=== PATIENT | female | born 1950 | race Caucasian/White ===

== ENCOUNTER → 2016-05-24 | Outpatient (CLI) | payer MEDICARE, OTHER ==
--- NOTE | 2016-05-25 09:43 | ECHOF ---
Referral Reason:R00.2 palpitations MEASUREMENTS -------- HEIGHT: 162.6 cm WEIGHT: 91.2 kg BP: 134/79 RVIDd: 2.9 cm (< 3.3) IVSd: 1.2 cm (0.6 - 1.1) LVIDd: 4.5 cm (3.9 - 5.3) LVPWd: 1.1 cm (0.6 - 1.1) IVSs: 1.5 cm LVIDs: 2.8 cm LVPWs: 1.7 cm LA Diam: 3.7 cm (2.7 - 3.8) LAESV Index (A-L): 21.51 ml/m Ao Diam: 3.3 cm (2.0 - 3.7) AV Cusp: 2.2 cm (1.5 - 2.6) MV EXCURSION: 13.189 mm (> 18.000) MV EF SLOPE: 30 mm/s (70 - 150) EPSS: 0.6 cm MV E Memo: 0.55 m/s MV DecT: 395 ms MV A Memo: 0.69 m/s MV E/A Ratio: 0.79 FINDINGS -------- Sinus rhythm. This was a technically good study. The left ventricular size is normal. There is borderline concentric left ventricular hypertrophy. Overall left ventricular systolic function is normal with, an EF between 60 - 65 %. The right ventricle is normal in size and function. Normal LA size by volume 22+/-6 ml/m2. The right atrium is normal in size. The aortic valve is trileaflet and appears structurally normal. Mild mitral annular calcification present. The tricuspid valve appears structurally normal. Trace/mild (physiologic) pulmonic regurgitation. The aortic root size is normal. IVC Not well visulized. There is no pericardial effusion. CONCLUSIONS -------- 1. Sinus rhythm. 2. Mild mitral annular calcification present. 3. The tricuspid valve appears structurally normal. 4. Trace/mild (physiologic) pulmonic regurgitation. 5. The aortic root size is normal. 6. IVC Not well visulized. 7. There is no pericardial effusion. 8. This was a technically good study. 9. The left ventricular size is normal. 10. There is borderline concentric left ventricular hypertrophy. 11. Overall left ventricular systolic function is normal with, an EF between 60 - 65 %. 12. The right ventricle is normal in size and function. 13. Normal LA size by volume 22+/-6 ml/m2. 14. The right atrium is normal in size. 15. The aortic valve is trileaflet and appears structurally normal. POWER REGULATOR: Hyun Bradford RDCS
== END | disposition home or self-care (01) ==
LOC: RADECHMAIN 10:49
PROVIDERS: ATTEND Family Medicine
DX: R00.2 Palpitations (principal)
CPT/HCPCS: 93225; 93226; 93306

== ENCOUNTER 2016-07-07 10:25 | Emergency (ER) | payer MEDICARE, OTHER ==
--- NOTE | 2016-07-07 10:31 | ED ---
Chest Pain HPI - General Stated Complaint: Chest Pain Time Seen by Provider: 07/07/16 10:25 Source: patient, EMS, RN notes reviewed Mode of arrival: EMS - History of Present Illness Initial Comments: This is a 65-year-old female who presents by EMS after going to a clinic this morning with complaints of chest pain and some shortness of breath she states that this started 2 days ago after vacuuming and lifting furniture. She states pain was severe 9/10 severity mostly sharp located to the left chest wall left scapula left trapezius and down the left arm. EKG done at the clinic apparently was totally normal. She was given nitroglycerin which did help a little bit pain gets worse with movements and deep breathing she denies any fevers chills nausea vomiting sweats. She does have a history of an irregular heartbeat and hypertension no prior lung history of anything. She is does states she had a cardiac catheterization done 30 years ago which did not show anything significant. MD Complaint: chest pain, other - Related Data Home Medications Medication Instructions Recorded Confirmed Furosemide [Lasix] 20 mg PO QAM 07/14/14 07/07/16 Gabapentin [Neurontin] 400 mg PO MOWEFR 07/14/14 07/07/16 Simvastatin [Zocor] 40 mg PO HS 07/14/14 07/07/16 FLUoxetine HCL [PROzac] 20 mg PO QAM 09/20/15 07/07/16 Cholecalciferol [Vitamin D3] 1,000 units PO QAM 10/20/15 07/07/16 Cranberry Extract [Cranberry] 500 mg PO QAM 10/20/15 07/07/16 Ergocalciferol [Vitamin D2 50,000 unit PO CORDERO 10/20/15 07/07/16 (DRISDOL)] Hydrocortisone Lotion [Hytone 2.5% 1 applicate TOPICAL BID PRN 10/20/15 07/07/16 Lotion] metroNIDAZOLE [Metrolotion] 1 applic TOPICAL BID 10/20/15 07/07/16 Carboxymethylcellulose Sodium 1 drop BOTH EYES BID 07/07/16 07/07/16 [Refresh Tears] Gabapentin [Neurontin] 400 mg PO HS 07/07/16 07/07/16 Ibuprofen [Motrin] 200 mg PO Q6HR PRN 04/22/17 04/22/17 Triamcinolone 0.1% Lotion [Kenalog 1 applic TOPICAL BID PRN 07/07/16 07/07/16 0.1% Lotion] Previous Rx's Medication Instructions Recorded Ketorolac [Toradol] 10 mg PO Q6HR #20 tab 07/07/16 Orphenadrine [Norflex] 100 mg PO Q12H #7 tablet.er 07/07/16 Allergies Allergy/AdvReac Type Severity Reaction Status Date / Time gold Au 198 Allergy Severe Swelling Verified 07/07/16 13:03 nickel Allergy Severe Swelling Verified 07/07/16 13:03 adhesive Allergy Itching/Sor Verified 07/07/16 13:00 es caffeine Allergy Anaphylaxis Verified 07/07/16 13:00 chlorhexidine gluconate Allergy Anaphylaxis Verified 07/07/16 13:00 [From Hibiclens] cinnamon Allergy Swelling Verified 07/07/16 13:00 of Tongue formaldehyde Allergy Unknown- Verified 07/07/16 13:00 positive in testing that was done Latex, Natural Rubber Allergy Anaphylaxis Verified 07/07/16 13:00 povidone-iodine Allergy Anaphylaxis Verified 07/07/16 13:00 [From Betadine] soap [From Betadine] Allergy Anaphylaxis Verified 07/07/16 13:00 sulfabenzamide Allergy Dyspnea Verified 07/07/16 13:00 tree nut [Pecan] Allergy Unknown Verified 07/07/16 13:00 wheat Allergy Rash/Hives Verified 07/07/16 13:00 warfarin sodium AdvReac Severe Nausea/Weak Verified 07/07/16 13:00 [From Coumadin] ness codeine AdvReac Hallucinati Verified 07/07/16 13:00 ons diazepam [From Valium] AdvReac "Collapsed" Verified 07/07/16 13:00 losartan potassium AdvReac Cough Verified 07/07/16 13:00 [From Cozaar] oxycodone AdvReac "Collapsed" Verified 07/07/16 13:00 metal Allergy Severe Nickel & Uncoded 07/07/16 13:00 Gold Allergy cinnamic aldehyde Allergy Sores/Rash Uncoded 07/07/16 13:00 in Mouth disperse red 17 Allergy Unknown Uncoded 12/20/15 12:07 fruit many types Allergy Itching Uncoded 07/07/16 13:00 [id number] MIX III Allergy Dyspnea Uncoded 12/20/15 12:07 preservative in eye drops Allergy Itching & Uncoded 12/20/15 12:07 Burning walnut Allergy Itching & Uncoded 07/07/16 13:00 Tongue Swells Review of Systems ROS Statement: Those systems with pertinent positive or pertinent negative responses have been documented in the HPI. ROS Other: All systems not noted in ROS Statement are negative. EKG Findings - EKG Results: EKG: interpreted by ERMD, sinus rhythm (Sinus rhythm rate of 62 OH interval 178 QRS duration 86 daily since QTC of 448/454 evidence of old inferior changes possible old anterior changes no acute ST-T wave elevations or depressions.) Past Medical History Past Medical History: Fibromyalgia, Hyperlipidemia, Hypertension, Osteoarthritis (OA), Sleep Apnea/CPAP/BIPAP Additional Past Medical History / Comment(s): past hx. 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, DDD, loss of feeling in arms and hands, had seizure several years ago related to severe caffeine allergy History of Any Multi-Drug Resistant Organisms: ESBL Date of last positivie culture/infection: 05/14/15 MDRO Source:: Urine-ESBL Past Surgical History: Back Surgery, Breast Surgery, Cholecystectomy, Hysterectomy, Orthopedic Surgery, Tonsillectomy, Tubal Ligation Additional Past Surgical History / Comment(s): kiara foot surgery, left breast biopsy, kiara knee replacement, cystocele/rectocele repair, PAIN CLINIC PROCEDURES , laminectomy 2012, lumbar fusion Feb 2015, May 12, 2015: surgery on back. Past Anesthesia/Blood Transfusion Reactions: Previous Problems w/ Anesthesia, Motion Sickness, Postoperative Nausea & Vomiting (PONV) Additional Past Anesthesia/Blood Transfusion Reaction / Comment(s): in recovery room-aspiration into lungs, DIFF WAKING Past Psychological History: Depression Smoking Status: Never smoker Past Alcohol Use History: None Reported Past Drug Use History: None Reported - Past Family History Father Family Medical History: Asthma, COPD, Coronary Artery Disease (CAD), Dementia Mother Family Medical History: Coronary Artery Disease (CAD), Dementia, Diabetes Mellitus, Hypertension Brother(s) Family Medical History: CVA/TIA, Diabetes Mellitus, Vascular Disorder Sister(s) Family Medical History: Liver Disease Daughter(s) Family Medical History: Hypertension Son(s) Family Medical History: Asthma General Exam - General Exam Comments Initial Comments: This is a well-developed well-nourished awake alert oriented 3 female General appearance: alert, anxious Head exam: Present: atraumatic, normocephalic, normal inspection Eye exam: Present: normal appearance, PERRL, EOMI. Absent: scleral icterus, conjunctival injection, periorbital swelling ENT exam: Present: normal exam, mucous membranes moist Neck exam: Present: normal inspection. Absent: tenderness, meningismus, lymphadenopathy Respiratory exam: Present: normal lung sounds bilaterally, chest wall tenderness (Reproducible tenderness palpation over left costosternal junction also over the left trapezius muscle left scapular region.). Absent: respiratory distress, wheezes, rales, rhonchi, stridor Cardiovascular Exam: Present: regular rate, normal rhythm, normal heart sounds. Absent: systolic murmur, diastolic murmur, rubs, gallop, clicks GI/Abdominal exam: Present: soft, normal bowel sounds. Absent: distended, tenderness, guarding, rebound, rigid Extremities exam: Present: normal inspection, full ROM, normal capillary refill. Absent: tenderness, pedal edema, joint swelling, calf tenderness Back exam: Present: normal inspection Neurological exam: Present: alert, oriented X3, CN II-XII intact Psychiatric exam: Present: normal affect, normal mood Skin exam: Present: warm, dry, intact, normal color. Absent: rash Course Vital Signs 07/07/16 07/07/16 07/07/16 10:34 11:35 12:15 Temperature 97.4 F L Pulse Rate 66 57 L 60 Respiratory 16 22 16 Rate Blood Pressure 153/80 160/95 173/90 O2 Sat by Pulse 98 98 95 Oximetry 07/07/16 07/07/16 12:45 13:15 Temperature Pulse Rate 62 62 Respiratory 18 16 Rate Blood Pressure 163/87 165/75 O2 Sat by Pulse 95 97 Oximetry Chest Pain MDM - MDM I did review all of the imaging and reports no acute findings. No evidence of PE. Patient is feeling improved the presentation consistent with costochondritis and musculoskeletal pain is not reproducible. She'll be discharged with follow-up with her doctor return when necessary Disposition Clinical Impression: Costalchondritis, Chest wall syndrome Disposition: HOME SELF-CARE Condition: Good Instructions: Costochondritis (ED) Prescriptions: Ketorolac [Toradol] 10 mg PO Q6HR #20 tab Orphenadrine [Norflex] 100 mg PO Q12H #7 tablet.er
[2016-07-07 11:10] LABS: Basophils # (A) 0.1 k/uL (0-0.2); Basophils % (A) 1 %; CH 27.2; CHCM 33.1; Eosinophils # (A) 0.1 k/uL (0-0.7); Eosinophils % (A) 1 %; HCT 45.3 % (34.0-46.0); HDW 2.64; HGB 14.8 gm/dL (11.4-16.0); Luc # (Auto) 0.17; Luc % (Auto) 3; Lymphocytes % (A) 31 %; MCH 26.9 pg (25.0-35.0); MCHC 32.7 g/dL (31.0-37.0); MCV 82.3 fL (80.0-100.0); Mean Platelet Volume 6.9; Monocytes # (A) 0.3 k/uL (0-1.0); Monocytes % (A) 4 %; Neutrophils % (A) 60 %; RBC 5.51 m/uL (3.80-5.40); RDW 13.9 % (11.5-15.5); WBC 6.6 k/uL (3.8-10.6); WBC (Perox) 6.36
[2016-07-07 11:22] LABS: ALT 25 U/L (9-52); AST 18 U/L (14-36); Alkaline Phosphatase 88 U/L (38-126); Amylase 49 U/L (30-110); Anion Gap 10 mmol/L; Blood Urea Nitrogen 9 mg/dL (7-17); Calcium 9.5 mg/dL (8.4-10.2); Carbon Dioxide 26 mmol/L (22-30); Chloride 107 mmol/L (98-107); Glucose 98 mg/dL (74-99); Non-African American GFR(MDRD) >60 (>60 ml/min/1.73 sqM); Potassium 3.4 mmol/L (3.5-5.1); Sodium 143 mmol/L (137-145); Total Bilirubin 0.8 mg/dL (0.2-1.3); Total Protein 6.7 g/dL (6.3-8.2)
[2016-07-07] MEDS: KETOROLAC 30 MG/ML 1 ML VIAL IVP STA ×2 (11:26→14:18)
[2016-07-07 11:57] LABS: Creatine Kinase 44 U/L (30-135)
[2016-07-07 12:10] LABS: Creatine Kinase MB 0.4 ng/mL (0.0-2.4); Troponin I <0.012 ng/mL (0.000-0.034)
[2016-07-07 12:13] LABS: INR 1.1 (<1.1); Partial Thromboplastin Time 22.8 sec (22.0-30.0); Prothrombin Time 11.3 sec (9.0-12.0)
[2016-07-07] MEDS ORDERED: RX INFO: IV CONTRAST WAS GIVEN 1 EACH MISC MISCELLANE PRN (13:14)
[2016-07-07 13:35] VITALS: RESP 16
--- NOTE | 2016-07-07 14:24 | XR ---
EXAMINATION TYPE: XR chest 2V DATE OF EXAM: 07/07/2016 1:46 PM COMPARISON: 09/20/2015 INDICATION: Chest pain TECHNIQUE: Single frontal view of the chest is obtained. FINDINGS: The heart size is normal. The pulmonary vasculature is normal. The lungs are clear. There is elevation of the right diaphragm. No significant change from comparison IMPRESSION: 1. No acute pulmonary process.
--- NOTE | 2016-07-07 14:27 | CT ---
CT CHEST FOR PULMONARY EMBOLISM. EXAMINATION TYPE: CT angio chest DATE OF EXAM: 07/07/2016 1:41 PM INDICATION: Patient having left chest, left arm, left shoulder pain CT DLP: 449.4 mGycm, Automated exposure control for dose reduction was used. CONTRAST: Patient injected with 100, wasted 37 ml mL of Omnipaque 350. COMPARISON: NONE TECHNIQUE: CT of the chest is performed on a spiral scan at 2 mm thick sections. Study is performed with intravenous contrast timed for evaluation for pulmonary embolism. This will limit additional po rtions of the evaluation. 3-D MIP images reconstructed by the technologist are reviewed on the compu ter in the coronal and sagittal planes. FINDINGS: No persistent filling defects are evident to suggest an acute pulmonary embolism. No mediastinal or hilar adenopathy enlarged by CT criteria is evident. The ascending aorta diameter at the level of the main pulmonary artery is 4.0 cm. The main pulmonary artery diameter at the bifur cation is 3.2 cm. Lung windows are clear. Limited CT section through the upper abdomen are unremarkable. IMPRESSIONS: 1. No acute pulmonary embolism.
[2016-07-07] MEDS ORDERED: diphenhydrAMINE 25 MG CAP PO STA (15:13)
[2016-07-07 15:47] VITALS: BP 153/86; PULSE 68; TEMP 97.9
== END 2016-07-07 15:45 | disposition home or self-care (01) ==
LOC: EC 10:25
DX: M94.0 Chondrocostal junction syndrome [Tietze] (principal); R07.1 Chest pain on breathing; M19.90 Unspecified osteoarthritis, unspecified site; I10 Essential (primary) hypertension; E78.5 Hyperlipidemia, unspecified; Z88.5 Allergy status to narcotic agent; Z91.048 Other nonmedicinal substance allergy status; Z91.040 Latex allergy status; Z88.8 Allergy status to other drugs, medicaments and biological substances; Z91.09 Other allergy status, other than to drugs and biological substances; Z91.018 Allergy to other foods; Z79.899 Other long term (current) drug therapy
CPT/HCPCS: 99285; 96374; 96376; 36415; 93005; 85379; 80053; 82150; 82550; 82553; 83690; 83735; 84484; 85025; 85610; 85730; 71020; 71275; Q9967; J1885

== ENCOUNTER → 2016-09-05 | Outpatient (CLI) | payer MEDICARE, OTHER ==
--- NOTE | 2016-09-07 13:18 | MR ---
MR brain without contrast HISTORY: Altered mental status, previous abnormal MRI, R 41 Multiplanar multisequence imaging through the brain Correlation to prior brain MRI 03/30/2009 There are normal vascular flow voids. There is no hemorrhage or hydrocephalus. Orbits show a symmetri c appearance. There is no restricted diffusion to suggest subacute ischemia. Cortical atrophy is agai n noted. Periventricular white matter hyperintensity is present on inversion recovery and T2-weighted sequences as on prior exam. Cerebellopontine angles, corpus callosum, pituitary, cervical medullary junction are stable. IMPRESSION: White matter demyelination may be due to chronic small vessel ischemia, vasculitis, hyper tension, migraine headaches, findings are similar to prior exam although there are differences in berta hnique.
== END | disposition home or self-care (01) ==
LOC: RADMRIMAIN 11:10
PROVIDERS: ATTEND Psychiatry & Neurology Neurology
DX: G37.8 Other specified demyelinating diseases of central nervous system (principal)
CPT/HCPCS: 70551

== ENCOUNTER → 2016-10-31 | Outpatient (CLI) | payer MEDICARE, OTHER ==
--- NOTE | 2016-11-13 05:53 | ENG ---
DATE OF EN10/31/2016 ELECTRONYSTAGMOGRAPHIC EXAMINATION REPORT INDICATION FOR EXAMINATION: This patient is a 66-year-old female being evaluated for symptoms of dizziness and vertigo. Patient has had multiple symptoms of gait unsteadiness and gait imbalance. She has been symptomatic for over 2 years. Patient also complains of tinnitus involving both ears. CALIBRATION: Within normal limits. SPONTANEOUS NYSTAGMUS: No spontaneous nystagmus was seen. GAZE NYSTAGMUS: No gaze evoked nystagmus was seen. SINUSOIDAL TRACKING TEST: Smooth pursuit eye movements at both 10 and 20 degrees per minute were slightly impaired. Saccadic attempts at eye tracking were observed. OPTOKINETIC TEST: The optokinetics were asymmetrical with right beating nystagmus being better developed as compared to left beating nystagmus at lower and higher target beats bilaterally. JUANY-HALLPIKE TEST: The left left Juany-Hallpike maneuver produced severe dizziness. Occasional right beating nystagmus was observed. The right Talala-Hallpike maneuver did not produce any dizziness. An occasional left beating nystagmus was observed. POSITIONAL NYSTAGMUS: No positional nystagmus was seen in all 6 positions tested. CALORIC TEST: Bithermal alternating caloric irrigation revealed unilateral weakness on the right and directional preponderance to the left without failure of fixation suppression. IMPRESSION: This electronystagmogram does not contain any spontaneous nystagmus. There was no gaze evoked nystagmus seen. Smooth pursuit eye movements were slightly impaired. Saccadic attempts at eye tracking were observed. The optokinetics were asymmetrical with right beating nystagmus being better developed as compared to left beating nystagmus at lower and higher target speeds bilaterally. The left Juany-Hallpike maneuver produced severe dizziness with right beating nystagmus. The right Talala-Hallpike maneuver produced no dizziness with occasional left beating nystagmus. No positional nystagmus was seen in all 6 positions tested. Caloric testing revealed unilateral weakness on the right and directional preponderance to the left without failure of fixation suppression. The above findings favor a partially compensated right peripheral vestibular disturbance. Clinical correlation is recommended. MTDD
== END | disposition home or self-care (01) ==
LOC: NEUROMAIN 06:45
PROVIDERS: ATTEND Psychiatry & Neurology Neurology
DX: H81.23 Vestibular neuronitis, bilateral (principal)
CPT/HCPCS: 92537; 92540

== ENCOUNTER → 2017-04-17 | Outpatient (CLI) | payer MEDICARE, OTHER ==
--- NOTE | 2017-04-19 07:59 | MM ---
Reason for exam: screening (asymptomatic). Last mammogram was performed 1 year and 7 months ago. History: Patient is postmenopausal and history of other cancer. Family history of breast cancer in aunt at age 50. Cyst aspiration. Physical Findings: A clinical breast exam by your physician is recommended on an annual basis and results should be correlated with mammographic findings. MG Screening Mammo w CAD Bilateral CC and MLO view(s) were taken. Prior study comparison: September 08, 2015, bilateral MG screening mammo w CAD. April 01, 2014, bilateral MG screening mammo w CAD. There are scattered fibroglandular densities. No significant changes when compared with prior studies. ASSESSMENT: Negative, BI-RAD 1 RECOMMENDATION: Routine screening mammogram of both breasts in 1 year.
== END | disposition home or self-care (01) ==
LOC: RADMAMWWP 09:54
PROVIDERS: ATTEND Family Medicine
DX: Z12.31 Encounter for screening mammogram for malignant neoplasm of breast (principal)
CPT/HCPCS: 77067

== ENCOUNTER → 2017-08-20 | Outpatient (CLI) | payer MEDICARE, OTHER ==
--- NOTE | 2017-08-21 11:36 | BD ---
EXAMINATION TYPE: Axial Bone Density DATE OF EXAM: 08/20/2017 COMPARISON: 03.31.2013 CLINICAL HISTORY: 67 YR OLD FEMALE....ICD-10 CODE: M89.9 DISORDER OF BONE Height: 63 Weight: 188 FRAX RISK QUESTIONS: Family History (Parent hip fracture): YES Glucocorticoids (More than 3mos): YES (Ex: prednisone, prednisolone, methylprednisolone, dexamethasone, and hydrocortisone). History of Fracture in Adulthood: YES RISK FACTORS HISTORY OF: BOTH FEET, TOES FXs, > 50 YRS OLD Surgery to Spine YES, RODS AND SCREWS, CADAVER BONE INSERTS When: LONG AGO Family History of Osteoporosis: YES, MOTHER WITH BROKEN HIP Active: YES Diet low in dairy products/other sources of calcium: NO Postmenopausal woman: YES TOTAL HYST AT 45 YRS OLD Take estrogen and/or progesterone medications: IN PAST FOR 2 YRS MEDICATIONS: Prednisone or other steroids: ON AND OFF IN PAST Additional Medications: BP MEDS, ANTI DEPRESSANTS AND ANTISEIZURE MEDS, CALCIUM AND VIT D, NSAIDS, PA IN MEDS , Additional History: DGD, ARTHRITIS, DEMENTIA, MANY ALLERGIES EXAM MEASUREMENTS: Bone mineral densitometry was performed using the [employer] System. SPINE NOT SCANNED Bone mineral density about the R hip (g/cm2): 0.817 Bone mineral density about the L hip (g/cm2): 0.918 T Score values are as follows: -----R Neck: -1.3 -----L Neck: -1.0 -----R Total: -1.5 -----L Total: -0.7 Bone mineral density has: Decreased osteopenia proximal right femur and increased fracture risk.0.1% SINCE 03.31.2013 FRAX%S: THERE IS A 14.8% CHANCE OF A MAJOR OSTEOPOROTIC FX AND A 1.1% FOR HIP FX.....PROBABILITY OF FX IN 10 YRS TIME IMPRESSION: NOTE: T-SCORE=SD OF THE YOUNG ADULT MEAN.
== END | disposition home or self-care (01) ==
LOC: RADBDWWP 15:32
PROVIDERS: ATTEND Family Medicine
DX: M89.9 Disorder of bone, unspecified (principal)
CPT/HCPCS: 77080

== ENCOUNTER 2018-03-25 09:15 | Emergency (ER) | payer MEDICARE, OTHER ==
[2018-03-25 09:20] VITALS: TEMP 97.6
--- NOTE | 2018-03-25 09:30 | ED ---
Abdominal Pain HPI - General Chief Complaint: Abdominal Pain Stated Complaint: VOMITING LEFT FLANK PAIN Time Seen by Provider: 03/25/18 09:28 Source: patient, RN notes reviewed, old records reviewed Mode of arrival: ambulatory Limitations: no limitations - History of Present Illness Initial Comments: This is a 67-year-old female the ER for evaluation. Patient does say for evaluation of flank pain severe left-sided flank pain rating to left groin. No fevers, patient is nauseous with nausea and vomiting. No recent travel history no recent sick contacts. Patient denies any prior history of similar complaint. Patient states his symptoms are severe and wrapping around her back to front MD Complaint: flank pain (left) -: days(s) Location: LLQ, L flank Radiation: LLQ Migration to: suprapubic Severity: severe Severity scale (1-10): 8 Quality: aching, sharp Consistency: constant Improves With: nothing Worsens With: nothing Associated Symptoms: nausea, vomiting - Related Data Home Medications Medication Instructions Recorded Confirmed Furosemide [Lasix] 20 mg PO QAM 07/14/14 03/25/18 Simvastatin [Zocor] 40 mg PO HS 07/14/14 03/25/18 FLUoxetine HCL [PROzac] 20 mg PO QAM 09/20/15 03/25/18 Cholecalciferol [Vitamin D3] 5,000 units PO QAM 10/20/15 03/25/18 Cranberry Fruit Extract [Cranberry] 500 mg PO BID 10/20/15 03/25/18 metroNIDAZOLE [Metrolotion] 1 applic TOPICAL BID 10/20/15 03/25/18 Carboxymethylcellulose Sodium 1 drop BOTH EYES BID 07/07/16 03/25/18 [Refresh Tears] Triamcinolone 0.1% Lotion [Kenalog 1 applic TOPICAL BID PRN 07/07/16 03/25/18 0.1% Lotion] Ascorbic Acid [Vitamin C] 500 mg PO BID 03/25/18 03/25/18 Calcium Carbonate [Calcium] 1,200 mg PO DAILY 03/25/18 03/25/18 Donepezil HCl [Aricept] 20 mg PO HS 03/25/18 03/25/18 Aysha Root 1,300 mg PO BID 03/25/18 03/25/18 diphenhydrAMINE [Benadryl] 25 mg PO QID PRN 03/25/18 03/25/18 Allergies Allergy/AdvReac Type Severity Reaction Status Date / Time gold Au 198 Allergy Severe Swelling Verified 03/25/18 10:13 nickel Allergy Severe Swelling Verified 03/25/18 10:13 acetaminophen [From Percocet] Allergy Anaphylaxis Verified 03/25/18 10:13 adhesive Allergy Itching/Sor Verified 03/25/18 10:13 es apple Allergy Unknown Verified 03/25/18 10:13 avocado Allergy Unknown Verified 03/25/18 10:13 banana Allergy Unknown Verified 03/25/18 10:13 beet Allergy Unknown Verified 03/25/18 10:13 broccoli Allergy Unknown Verified 03/25/18 10:13 caffeine Allergy Anaphylaxis Verified 03/25/18 10:13 Cauliflower Allergy Unknown Verified 03/25/18 10:13 poon Allergy Unknown Verified 03/25/18 10:13 chlorhexidine Allergy Anaphylaxis Verified 03/25/18 10:13 [From Hibiclens] chlorhexidine gluconate Allergy Anaphylaxis Verified 03/25/18 10:13 [From Hibiclens] cinnamon Allergy Swelling Verified 03/25/18 10:13 of Tongue citric acid Allergy Anaphylaxis Verified 03/25/18 10:13 formaldehyde Allergy Unknown- Verified 03/25/18 10:13 positive in testing that was done gabapentin Allergy Unknown Verified 03/25/18 10:13 hazelnut Allergy Unknown Verified 03/25/18 10:13 kiwi Allergy Unknown Verified 03/25/18 10:13 Latex, Natural Rubber Allergy Anaphylaxis Verified 03/25/18 10:13 lemon Allergy Unknown Verified 03/25/18 10:13 elem Allergy Unknown Verified 03/25/18 10:13 losartan Allergy Unknown Verified 03/25/18 10:13 orange juice [[place]] Allergy Unknown Verified 03/25/18 10:13 papaya Allergy Unknown Verified 03/25/18 10:13 passion fruit Allergy Unknown Verified 03/25/18 10:13 peach Allergy Unknown Verified 03/25/18 10:13 pear Allergy Unknown Verified 03/25/18 10:13 Pepper Allergy Unknown Verified 03/25/18 10:13 plum Allergy Unknown Verified 03/25/18 10:13 potato Allergy Unknown Verified 03/25/18 10:13 povidone-iodine Allergy Anaphylaxis Verified 03/25/18 10:13 [From Betadine] raspberry Allergy Unknown Verified 03/25/18 10:13 red dye Allergy Anaphylaxis Verified 03/25/18 10:13 soap [From Betadine] Allergy Anaphylaxis Verified 03/25/18 10:13 Squash Allergy Unknown Verified 03/25/18 10:13 strawberry Allergy Unknown Verified 03/25/18 10:13 sulfabenzamide Allergy Dyspnea Verified 03/25/18 10:13 tomato Allergy Unknown Verified 03/25/18 10:13 tree nut [Pecan] Allergy Unknown Verified 03/25/18 10:13 walnut Allergy Unknown Verified 03/25/18 10:13 warfarin Allergy Unknown Verified 03/25/18 10:13 wheat Allergy Rash/Hives Verified 03/25/18 10:13 warfarin sodium AdvReac Severe Nausea/Weak Verified 03/25/18 10:13 [From Coumadin] ness codeine AdvReac Hallucinati Verified 03/25/18 10:13 ons diazepam [From Valium] AdvReac "Collapsed" Verified 03/25/18 10:13 losartan potassium AdvReac Cough Verified 03/25/18 10:13 [From Cozaar] oxycodone AdvReac "Collapsed" Verified 03/25/18 10:13 metal Allergy Severe Nickel & Uncoded 03/25/18 09:20 Gold Allergy CHESTNUTS Allergy Unknown Uncoded 03/25/18 10:13 CHIPS (SEASONED) Allergy Unknown Uncoded 03/25/18 10:13 cinnamic aldehyde Allergy Sores/Rash Uncoded 03/25/18 09:20 in Mouth disperse red 17 Allergy Unknown Uncoded 03/25/18 09:20 FLUORIDE AND CHLORIDE WATER Allergy Unknown Uncoded 03/25/18 10:13 fruit many types Allergy Itching Uncoded 03/25/18 09:20 [id number] MIX III Allergy Dyspnea Uncoded 03/25/18 09:20 NECTARINE Allergy Unknown Uncoded 03/25/18 10:13 PICKLED FOOD Allergy Unknown Uncoded 03/25/18 10:13 POTASSIUM CITRATE Allergy Unknown Uncoded 03/25/18 10:13 preservative in eye drops Allergy Itching & Uncoded 03/25/18 09:20 Burning STAR FRUIT Allergy Unknown Uncoded 03/25/18 10:13 TANGERINE Allergy Unknown Uncoded 03/25/18 10:13 VINEGAR Allergy Unknown Uncoded 03/25/18 10:13 walnut Allergy Itching & Uncoded 03/25/18 09:20 Tongue Swells Review of Systems ROS Statement: Those systems with pertinent positive or pertinent negative responses have been documented in the HPI. ROS Other: All systems not noted in ROS Statement are negative. Past Medical History Past Medical History: Fibromyalgia, Hyperlipidemia, Hypertension, Osteoarthritis (OA), Sleep Apnea/CPAP/BIPAP Additional Past Medical History / Comment(s): past hx. 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, DDD, loss of feeling in arms and hands, had seizure several years ago related to severe caffeine allergy History of Any Multi-Drug Resistant Organisms: ESBL Date of last positivie culture/infection: 05/14/15 MDRO Source:: Urine-ESBL Past Surgical History: Back Surgery, Breast Surgery, Cholecystectomy, Hysterectomy, Orthopedic Surgery, Tonsillectomy, Tubal Ligation Additional Past Surgical History / Comment(s): kiara foot surgery, left breast biopsy, kiara knee replacement, cystocele/rectocele repair, PAIN CLINIC PROCEDURES , laminectomy 2012, lumbar fusion Feb 2015, May 12, 2015: surgery on back. Past Anesthesia/Blood Transfusion Reactions: Previous Problems w/ Anesthesia, Motion Sickness, Postoperative Nausea & Vomiting (PONV) Additional Past Anesthesia/Blood Transfusion Reaction / Comment(s): in recovery room-aspiration into lungs, DIFF WAKING Past Psychological History: Depression Smoking Status: Never smoker Past Alcohol Use History: None Reported Past Drug Use History: None Reported - Past Family History Father Family Medical History: Asthma, COPD, Coronary Artery Disease (CAD), Dementia Mother Family Medical History: Coronary Artery Disease (CAD), Dementia, Diabetes Mellitus, Hypertension Brother(s) Family Medical History: CVA/TIA, Diabetes Mellitus, Vascular Disorder Sister(s) Family Medical History: Liver Disease Daughter(s) Family Medical History: Hypertension Son(s) Family Medical History: Asthma General Exam Limitations: no limitations General appearance: alert, in no apparent distress, anxious (Patient is in distress, pain) Head exam: Present: atraumatic, normocephalic, normal inspection Eye exam: Present: normal appearance, PERRL, EOMI. Absent: scleral icterus, conjunctival injection, periorbital swelling ENT exam: Present: normal exam, mucous membranes moist Neck exam: Present: normal inspection. Absent: tenderness, meningismus, lymphadenopathy Respiratory exam: Present: normal lung sounds bilaterally. Absent: respiratory distress, wheezes, rales, rhonchi, stridor Cardiovascular Exam: Present: regular rate, normal rhythm, normal heart sounds. Absent: systolic murmur, diastolic murmur, rubs, gallop, clicks GI/Abdominal exam: Present: soft, normal bowel sounds. Absent: distended, tenderness, guarding, rebound, rigid Extremities exam: Present: normal inspection, full ROM, normal capillary refill. Absent: tenderness, pedal edema, joint swelling, calf tenderness Back exam: Present: normal inspection Neurological exam: Present: alert, oriented X3, CN II-XII intact Psychiatric exam: Present: normal affect, normal mood Skin exam: Present: warm, dry, intact, normal color. Absent: rash Course Vital Signs 03/25/18 03/25/18 09:18 10:58 Temperature 97.6 F Pulse Rate 89 85 Respiratory 20 18 Rate Blood Pressure 172/110 123/62 O2 Sat by Pulse 100 100 Oximetry - Reevaluation(s) Reevaluation #1: 03/25/18 12:18 Medical record reviewed Reevaluation #2: 03/25/18 12:18 Patient's pain is controlled Medical Decision Making - Medical Decision Making 67 female the ER for evaluation. Patient resents today for evaluation of severe abdominal pain severe left flank pain. Patient has positive kidney stone. Patient can be discharged home - Lab Data Result diagrams: 03/25/18 09:40 03/25/18 09:40 Lab Results 03/25/18 03/25/18 03/25/18 Range/Units 09:40 09:40 09:40 WBC 8.9 (3.8-10.6) k/uL RBC 5.76 H (3.80-5.40) m/uL Hgb 15.8 (11.4-16.0) gm/dL Hct 47.2 H (34.0-46.0) % MCV 81.9 (80.0-100.0) fL MCH 27.4 (25.0-35.0) pg MCHC 33.4 (31.0-37.0) g/dL RDW 13.4 (11.5-15.5) % Plt Count 290 (150-450) k/uL Neutrophils % 80 % Lymphocytes % 13 % Monocytes % 4 % Eosinophils % 1 % Basophils % 1 % Neutrophils # 7.2 (1.3-7.7) k/uL Lymphocytes # 1.2 (1.0-4.8) k/uL Monocytes # 0.4 (0-1.0) k/uL Eosinophils # 0.1 (0-0.7) k/uL Basophils # 0.1 (0-0.2) k/uL PT (9.0-12.0) sec INR (<1.2) APTT (22.0-30.0) sec Sodium 142 (137-145) mmol/L Potassium 3.8 (3.5-5.1) mmol/L Chloride 105 (98-107) mmol/L Carbon Dioxide 26 (22-30) mmol/L Anion Gap 11 mmol/L BUN 15 (7-17) mg/dL Creatinine 1.02 (0.52-1.04) mg/dL Est GFR (CKD-EPI)AfAm 66 (>60 ml/min/1.73 sqM) Est GFR (CKD-EPI)NonAf 57 (>60 ml/min/1.73 sqM) Glucose 133 H (74-99) mg/dL Plasma Lactic Acid Eric (0.7-2.0) mmol/L Calcium 10.2 (8.4-10.2) mg/dL Total Bilirubin 1.2 (0.2-1.3) mg/dL AST 24 (14-36) U/L ALT 19 (9-52) U/L Alkaline Phosphatase 95 (38-126) U/L Total Creatine Kinase 76 (30-135) U/L CK-MB (CK-2) 0.9 (0.0-2.4) ng/mL CK-MB (CK-2) Rel Index 1.2 Troponin I <0.012 (0.000-0.034) ng/mL Total Protein 7.1 (6.3-8.2) g/dL Albumin 4.6 (3.5-5.0) g/dL Amylase 52 (30-110) U/L Lipase 101 (23-300) U/L Urine Color Urine Appearance (Clear) Urine pH (5.0-8.0) Ur Specific [place] (1.001-1.035) Urine Protein (Negative) Urine Glucose (UA) (Negative) Urine Ketones (Negative) Urine Blood (Negative) Urine Nitrite (Negative) Urine Bilirubin (Negative) Urine Urobilinogen (<2.0) mg/dL Ur Leukocyte Esterase (Negative) Urine RBC (0-5) /hpf Urine WBC (0-5) /hpf Ur Squamous Epith Cells (0-4) /hpf Calcium Oxalate Crystal (None) /hpf Amorphous Sediment (None) /hpf Urine Mucus (None) /hpf 03/25/18 03/25/18 03/25/18 Range/Units 09:40 09:40 09:40 WBC (3.8-10.6) k/uL RBC (3.80-5.40) m/uL Hgb (11.4-16.0) gm/dL Hct (34.0-46.0) % MCV (80.0-100.0) fL MCH (25.0-35.0) pg MCHC (31.0-37.0) g/dL RDW (11.5-15.5) % Plt Count (150-450) k/uL Neutrophils % % Lymphocytes % % Monocytes % % Eosinophils % % Basophils % % Neutrophils # (1.3-7.7) k/uL Lymphocytes # (1.0-4.8) k/uL Monocytes # (0-1.0) k/uL Eosinophils # (0-0.7) k/uL Basophils # (0-0.2) k/uL PT 9.9 (9.0-12.0) sec INR 0.9 (<1.2) APTT 23.2 (22.0-30.0) sec Sodium (137-145) mmol/L Potassium (3.5-5.1) mmol/L Chloride (98-107) mmol/L Carbon Dioxide (22-30) mmol/L Anion Gap mmol/L BUN (7-17) mg/dL Creatinine (0.52-1.04) mg/dL Est GFR (CKD-EPI)AfAm (>60 ml/min/1.73 sqM) Est GFR (CKD-EPI)NonAf (>60 ml/min/1.73 sqM) Glucose (74-99) mg/dL Plasma Lactic Acid Eric 2.7 H* (0.7-2.0) mmol/L Calcium (8.4-10.2) mg/dL Total Bilirubin (0.2-1.3) mg/dL AST (14-36) U/L ALT (9-52) U/L Alkaline Phosphatase (38-126) U/L Total Creatine Kinase (30-135) U/L CK-MB (CK-2) (0.0-2.4) ng/mL CK-MB (CK-2) Rel Index Troponin I (0.000-0.034) ng/mL Total Protein (6.3-8.2) g/dL Albumin (3.5-5.0) g/dL Amylase (30-110) U/L Lipase (23-300) U/L Urine Color Yellow Urine Appearance Turbid H (Clear) Urine pH 8.0 (5.0-8.0) Ur Specific [place] 1.015 (1.001-1.035) Urine Protein Trace H (Negative) Urine Glucose (UA) Negative (Negative) Urine Ketones 2+ H (Negative) Urine Blood Moderate H (Negative) Urine Nitrite Negative (Negative) Urine Bilirubin Negative (Negative) Urine Urobilinogen <2.0 (<2.0) mg/dL Ur Leukocyte Esterase Negative (Negative) Urine RBC >182 H (0-5) /hpf Urine WBC 6 H (0-5) /hpf Ur Squamous Epith Cells 1 (0-4) /hpf Calcium Oxalate Crystal Occasional H (None) /hpf Amorphous Sediment Rare H (None) /hpf Urine Mucus Rare H (None) /hpf - Radiology Data Radiology results: report reviewed (CT abdomen pelvis positive for left-sided kidney stone), image reviewed Disposition Clinical Impression: Kidney stone on left side, Ureterolithiasis Disposition: HOME SELF-CARE Condition: Good Instructions: Kidney Stones (ED) Is patient prescribed a controlled substance at d/c from ED?: No Referrals: Tesha Acuna MD [Primary Care Provider] - 1-2 days
[2018-03-25] MEDS ORDERED: ONDANSETRON 4 MG/2 ML VIAL IVP STA (09:43)
[2018-03-25] MEDS ORDERED: SODIUM CHLORIDE 0.9% 1,000 ML IV STA ×2 (09:43→12:14)
[2018-03-25] MEDS ORDERED: MORPHINE SULFATE 4 MG/ML SYRINGE IV STA (09:43)
[2018-03-25 09:57] LABS: Basophils # (A) 0.1 k/uL (0-0.2); Basophils % (A) 1 %; Eosinophils # (A) 0.1 k/uL (0-0.7); Eosinophils % (A) 1 %; HCT 47.2 % (34.0-46.0); HGB 15.8 gm/dL (11.4-16.0); Lymphocytes # (A) 1.2 k/uL (1.0-4.8); Lymphocytes % (A) 13 %; MCH 27.4 pg (25.0-35.0); MCHC 33.4 g/dL (31.0-37.0); MCV 81.9 fL (80.0-100.0); Mean Platelet Volume 6.7; Monocytes # (A) 0.4 k/uL (0-1.0); Monocytes % (A) 4 %; Neutrophils # (A) 7.2 k/uL (1.3-7.7); Neutrophils % (A) 80 %; Platelet Count 290 k/uL (150-450); RBC 5.76 m/uL (3.80-5.40); RDW 13.4 % (11.5-15.5); WBC 8.9 k/uL (3.8-10.6)
[2018-03-25 10:06] LABS: INR 0.9 (<1.2); Partial Thromboplastin Time 23.2 sec (22.0-30.0); Prothrombin Time 9.9 sec (9.0-12.0)
[2018-03-25 10:09] LABS: Albumin 4.6 g/dL (3.5-5.0); Calcium 10.2 mg/dL (8.4-10.2); Potassium 3.8 mmol/L (3.5-5.1); Total Bilirubin 1.2 mg/dL (0.2-1.3); Total Protein 7.1 g/dL (6.3-8.2)
[2018-03-25 10:28] LABS: Amorphous Sediment,Urine Rare /hpf; Appearance,Urine Turbid (Clear); Bilirubin,Urine Negative (Negative); Blood,Urine Moderate (Negative); Calcium Oxalate Crystals,Urine Occasional /hpf; Color,Urine Yellow; Glucose,Urine (UA) Negative (Negative); Ketones,Urine 2+ (Negative); Leukocyte Esterase,Urine Negative (Negative); Mucus,Urine Rare /hpf; Nitrite,Urine Negative (Negative); Protein,Urine Trace (Negative); RBC,Urine >182 /hpf (0-5); Specific Gravity,Urine 1.015 (1.001-1.035); Squamous Epithelial Cell,Urine 1 /hpf (0-4); Urobilinogen,Urine <2.0 mg/dL (<2.0); WBC,Urine 6 /hpf (0-5)
[2018-03-25 10:29] LABS: Creatine Kinase 76 U/L (30-135)
[2018-03-25 10:40] LABS: Creatine Kinase MB 0.9 ng/mL (0.0-2.4); Troponin I <0.012 ng/mL (0.000-0.034)
[2018-03-25 11:01] VITALS: RESP 18
--- NOTE | 2018-03-25 12:08 | CT ---
EXAMINATION TYPE: CT abdomen pelvis wo con DATE OF EXAM: 03/25/2018 COMPARISON: None INDICATION: Vomiting. Left flank pain DLP: 631.2 mGycm, Automated exposure control for dose reduction was used. CONTRAST: 0 mL of Isovue 300. Study performed without Oral Contrast TECHNIQUE: Axial images were obtained from above the diaphragm to the pubic rami in the axial plane a t 5 mm thick sections. Reconstructed images are reviewed on the computer in the coronal plane. FINDINGS: Limited CT sections are obtained the lung bases. There is a 0.4 cm densities in the posterior latera l left lung base which are nonspecific. Small nodules and atelectasis could be considered. Follow-up is recommended.. CT ABDOMEN: Liver: Normal Spleen: Normal Pancreas: Normal Adrenal glands: The adrenal glands are normal. Gallbladder: Normal Kidneys: No masses are evident. Mild left hydronephrosis present. Left hydroureter to the mid ureter is present. At this level there is a 0.4 cm calcification compatible with ureteral stone. Image 49 se jordana 201. No cysts are present. Aorta: Minimal Vascular calcification is within the aorta. Inferior vena cava: Normal. CT PELVIS: Loops of bowel within the abdomen and pelvis are normal. Studies performed without oral contrast limiting bowel evaluation. Appendix: Not identified. No suspicious inflammatory changes are evident. Urinary bladder: Normal. Genitourinary structures: Uterus and ovaries are not identified Osseous structures: No suspicious lytic or sclerotic lesions. Postsurgical changes are within the lum bar spine. IMPRESSIONS: 1. 0.4 cm mid left ureteral stone with mild left hydronephrosis and hydroureter.
[2018-03-25] MEDS ORDERED: MORPHINE SULFATE 4 MG/ML SYRINGE IVP STA (12:14)
[2018-03-25] MEDS ORDERED: KETOROLAC 30 MG/ML 1 ML VIAL IVP STA (12:14)
[2018-03-25 13:20] VITALS: BP 117/69; PULSE 65
== END 2018-03-25 13:27 | disposition home or self-care (01) ==
LOC: EC 09:15
DX: N20.2 Calculus of kidney with calculus of ureter (principal); E78.5 Hyperlipidemia, unspecified; I10 Essential (primary) hypertension; F32.9 Major depressive disorder, single episode, unspecified; M19.90 Unspecified osteoarthritis, unspecified site; G47.30 Sleep apnea, unspecified; H18.59 Other hereditary corneal dystrophies; Z88.2 Allergy status to sulfonamides; Z88.5 Allergy status to narcotic agent; Z88.8 Allergy status to other drugs, medicaments and biological substances; Z91.018 Allergy to other foods; Z91.040 Latex allergy status; Z91.048 Other nonmedicinal substance allergy status; Z79.52 Long term (current) use of systemic steroids; Z79.899 Other long term (current) drug therapy; Z90.49 Acquired absence of other specified parts of digestive tract; Z98.1 Arthrodesis status; Z87.448 Personal history of other diseases of urinary system; Z99.89 Dependence on other enabling machines and devices; Z83.79 Family history of other diseases of the digestive system
CPT/HCPCS: 36415; 80053; 82150; 82550; 82553; 83605; 83690; 84484; 85025; 85610; 85730; 81001; 87086; 74176; 99285; 96374; 96375 ×2; 96376; 96361 ×3; J2270; J2405; J1885

== ENCOUNTER → 2018-05-07 | Outpatient (CLI) | payer MEDICARE, OTHER ==
--- NOTE | 2018-05-08 11:56 | MM ---
Reason for exam: screening (asymptomatic). Last mammogram was performed 1 year and 1 month ago. History: Patient is postmenopausal and history of other cancer. Family history of breast cancer in aunt at age 50. Cyst aspiration. Physical Findings: A clinical breast exam by your physician is recommended on an annual basis and results should be correlated with mammographic findings. MG Screening Mammo w CAD Bilateral CC and MLO view(s) were taken. Prior study comparison: April 17, 2017, bilateral MG screening mammo w CAD. September 08, 2015, bilateral MG screening mammo w CAD. The breast tissue is heterogeneously dense. This may lower the sensitivity of mammography. There is no discrete abnormality. No significant changes when compared with prior studies. ASSESSMENT: Negative, BI-RAD 1 RECOMMENDATION: Routine screening mammogram of both breasts in 1 year.
== END | disposition home or self-care (01) ==
LOC: RADMAMWWP 09:23
PROVIDERS: ATTEND Family Medicine
DX: Z12.31 Encounter for screening mammogram for malignant neoplasm of breast (principal)
CPT/HCPCS: 77067

== ENCOUNTER → 2018-09-03 | Outpatient (CLI) | payer MEDICARE, OTHER ==
--- NOTE | 2018-09-03 21:43 | MR ---
EXAMINATION TYPE: MR brain wo con DATE OF EXAM: 09/03/2018 COMPARISON: Prior MRI brain September 05, 2016. HISTORY: Vascular dementia w/o behavioral disturbance per order. Symptoms of dizziness with right-gilda ed weakness per patient TECHNIQUE: Multiplanar, multisequence imaging of the brain and brainstem is performed without IV cont rast. FINDINGS: Diffusion weighted images demonstrate no evidence of a recent infarct or other diffusion abnormality. There is no worrisome extra-axial fluid collection. Mild ventricular and sulcal prominence is redemon strated. Areas of T2 hyperintensity periventricular white matter again seen. Midline structures demonstrate normal morphology. The craniocervical junction appears within normal limits. Normal vascular flow voids are present. Dominant tortuous right vertebral artery is redemons trated. Mild mucosal thickening involving ethmoid sinuses bilaterally is redemonstrated. Nasal septum is deviated to left of midline. Globes are intact bilaterally. IMPRESSION: Mild diffuse age-related cerebral atrophy and chronic small vessel ischemic change along with mild chronic ethmoid sinus disease. No significant change from prior MRI
== END | disposition home or self-care (01) ==
LOC: RADMRIMAIN 16:32
PROVIDERS: ATTEND Family Medicine
DX: G31.1 Senile degeneration of brain, not elsewhere classified (principal); I67.82 Cerebral ischemia
CPT/HCPCS: 70551

== ENCOUNTER → 2019-01-05 | Outpatient (CLI) | payer MEDICARE, OTHER | END | disposition home or self-care (01) | LOC: LABWHC1 15:03 | PROVIDERS: ATTEND Dermatology Procedural Dermatology | DX: L30.9 Dermatitis, unspecified (principal) | CPT/HCPCS: 36415; 83516 ==

== ENCOUNTER → 2019-01-19 | Outpatient (CLI) | payer MEDICARE, OTHER | END | disposition home or self-care (01) | LOC: LABWHC1 15:51 | PROVIDERS: ATTEND Dermatology Procedural Dermatology | DX: L12.0 Bullous pemphigoid (principal) | CPT/HCPCS: 36415 ==

== ENCOUNTER → 2019-01-22 | Outpatient (CLI) | payer MEDICARE, OTHER ==
[2019-01-22 14:20] LABS: Basophils # (A) 0.2 k/uL (0-0.2); Basophils % (A) 3 %; Eosinophils # (A) 0.2 k/uL (0-0.7); Eosinophils % (A) 2 %; HCT 47.7 % (34.0-46.0); HGB 15.4 gm/dL (11.4-16.0); Lymphocytes # (A) 0.3 k/uL (1.0-4.8); Lymphocytes % (A) 3 %; MCH 27.9 pg (25.0-35.0); MCHC 32.2 g/dL (31.0-37.0); MCV 86.5 fL (80.0-100.0); Mean Platelet Volume 6.3; Monocytes # (A) 0.3 k/uL (0-1.0); Monocytes % (A) 4 %; Neutrophils # (A) 7.1 k/uL (1.3-7.7); Neutrophils % (A) 87 %; Platelet Count 186 k/uL (150-450); RBC 5.51 m/uL (3.80-5.40); RDW 12.9 % (11.5-15.5); WBC 8.1 k/uL (3.8-10.6)
[2019-01-22 19:53] LABS: African American GFR (CKD) 87.8 (60.0-200.0); Albumin/Globulin Ratio 2.35 (1.60-3.17); Anion Gap 10.1 mmol/L (4.00-12.00); BUN/Creat Ratio 11.25 Ratio (12.00-20.00); Carbon Dioxide 27.9 mmol/L (21.6-31.8); Globulin 1.7 g/dL (1.6-3.3); Potassium 3.7 mmol/L (3.5-5.5); Total Bilirubin 0.7 mg/dL (0.2-1.2); Total Protein 5.7 g/dL (6.2-8.2)
== END | disposition home or self-care (01) ==
LOC: LABWHC1 12:49
PROVIDERS: ATTEND Family Medicine
DX: M79.10 Myalgia, unspecified site (principal); M25.50 Pain in unspecified joint; R50.9 Fever, unspecified
CPT/HCPCS: 36415; 80053; 85025; 87040; 87086

== ENCOUNTER 2019-01-27 10:04 | Emergency (ER) | payer MEDICARE, OTHER ==
[2019-01-27 10:25] VITALS: TEMP 97.8
--- NOTE | 2019-01-27 11:02 | ED ---
General Adult HPI - General Chief complaint: Back Pain/Injury Stated complaint: Back/leg pain Time Seen by Provider: 01/27/19 10:25 Source: patient, family, RN notes reviewed, old records reviewed Mode of arrival: ambulatory Limitations: no limitations - History of Present Illness Initial comments: This is a 60-year-old female presents emergency department stating that last Saturday she went to the to do a workout which she has not done in quite a wh ile. Patient states later that day her back started to hurt and it seemed to cause her pain in both legs. Patient states the next day she was having severe back pain and leg pain. Patient states movement did not appear to worsen it. Patient states she went to her primary medical care doctor lab work was done and it did not indicate what the problem was. Patient states since then the pain has been severe and he continues currently. Patient denies any known injury. Patient states one day she had a temperature of 100 but hasn't taken it since per patient denies any abdominal pain patient denies nausea vomiting diarrhea. Patient denies any chest pain difficulty breathing shortness of breath. Patient denies any upper back pain. Patient denies any patient denies numbness weakness. Patient states it's chest pain in her lower back and it's across her lower back. Patient states then she has pain going all the way down her legs per patient denies any numbness or weakness of the legs she denies any numbness in the groin area and she denies any difficulty urinating or being incontinent or having any urinary retention. - Related Data Home Medications Medication Instructions Recorded Confirmed Furosemide [Lasix] 20 mg PO QAM 07/14/14 01/27/19 Simvastatin [Zocor] 40 mg PO HS 07/14/14 01/27/19 FLUoxetine HCL [PROzac] 20 mg PO QAM 09/20/15 01/27/19 Cholecalciferol [Vitamin D3] 5,000 units PO QAM 10/20/15 01/27/19 Cranberry Fruit Extract [Cranberry] 500 mg PO BID 10/20/15 01/27/19 metroNIDAZOLE [Metrolotion] 1 applic TOPICAL BID 10/20/15 01/27/19 Carboxymethylcellulose Sodium 1 drop BOTH EYES BID 07/07/16 01/27/19 [Refresh Tears] Calcium Carbonate [Calcium] 1,200 mg PO DAILY 03/25/18 01/27/19 Donepezil HCl [Aricept] 20 mg PO HS 03/25/18 01/27/19 Aysha Root 1,300 mg PO BID 03/25/18 01/27/19 Ibuprofen [Motrin Ib] 200 mg PO Q6H PRN 01/27/19 01/27/19 Minocycline HCl [Minocin] 100 mg PO DAILY 01/27/19 01/27/19 Niacin (Flush Free) 500mg 500 mg PO DAILY 01/27/19 01/27/19 Vitamin B Complex 1 cap PO DAILY 01/27/19 01/27/19 Previous Rx's Medication Instructions Recorded predniSONE 40 mg PO DAILY #8 tab 01/27/19 Allergies Allergy/AdvReac Type Severity Reaction Status Date / Time gold Au 198 Allergy Severe Swelling Verified 01/27/19 10:48 nickel Allergy Severe Swelling Verified 01/27/19 10:48 acetaminophen [From Percocet] Allergy Anaphylaxis Verified 01/27/19 10:48 adhesive Allergy Itching/Sor Verified 01/27/19 10:48 es apple Allergy Unknown Verified 01/27/19 10:48 avocado Allergy Unknown Verified 01/27/19 10:48 banana Allergy Unknown Verified 01/27/19 10:48 beet Allergy Unknown Verified 01/27/19 10:48 broccoli Allergy Unknown Verified 01/27/19 10:48 caffeine Allergy Anaphylaxis Verified 01/27/19 10:48 Cauliflower Allergy Unknown Verified 01/27/19 10:48 poon Allergy Unknown Verified 01/27/19 10:48 chlorhexidine Allergy Anaphylaxis Verified 01/27/19 10:48 [From Hibiclens] chlorhexidine gluconate Allergy Anaphylaxis Verified 01/27/19 10:48 [From Hibiclens] cinnamon Allergy Swelling Verified 01/27/19 10:48 of Tongue citric acid Allergy Anaphylaxis Verified 01/27/19 10:48 formaldehyde Allergy Unknown- Verified 01/27/19 10:48 positive in testing that was done gabapentin Allergy Unknown Verified 01/27/19 10:48 hazelnut Allergy Unknown Verified 01/27/19 10:48 kiwi Allergy Unknown Verified 01/27/19 10:48 Latex, Natural Rubber Allergy Anaphylaxis Verified 01/27/19 10:48 lemon Allergy Unknown Verified 01/27/19 10:48 [place] Allergy Unknown Verified 01/27/19 10:48 losartan Allergy Unknown Verified 01/27/19 10:48 orange juice [[place]] Allergy Unknown Verified 01/27/19 10:48 papaya Allergy Unknown Verified 01/27/19 10:48 passion fruit Allergy Unknown Verified 01/27/19 10:48 peach Allergy Unknown Verified 01/27/19 10:48 pear Allergy Unknown Verified 01/27/19 10:48 Pepper Allergy Unknown Verified 01/27/19 10:48 plum Allergy Unknown Verified 01/27/19 10:48 potato Allergy Unknown Verified 01/27/19 10:48 povidone-iodine Allergy Anaphylaxis Verified 01/27/19 10:48 [From Betadine] raspberry Allergy Unknown Verified 01/27/19 10:48 red dye Allergy Anaphylaxis Verified 01/27/19 10:48 soap [From Betadine] Allergy Anaphylaxis Verified 01/27/19 10:48 Squash Allergy Unknown Verified 01/27/19 10:48 strawberry Allergy Unknown Verified 01/27/19 10:48 sulfabenzamide Allergy Dyspnea Verified 01/27/19 10:48 tomato Allergy Unknown Verified 01/27/19 10:48 tree nut [Pecan] Allergy Unknown Verified 01/27/19 10:48 walnut Allergy Unknown Verified 01/27/19 10:48 warfarin Allergy Unknown Verified 01/27/19 10:48 wheat Allergy Rash/Hives Verified 01/27/19 10:48 warfarin sodium AdvReac Severe Nausea/Weak Verified 01/27/19 10:48 [From Coumadin] ness codeine AdvReac Hallucinati Verified 01/27/19 10:48 ons diazepam [From Valium] AdvReac "Collapsed" Verified 01/27/19 10:48 losartan potassium AdvReac Cough Verified 01/27/19 10:48 [From Cozaar] oxycodone AdvReac "Collapsed" Verified 01/27/19 10:48 metal Allergy Severe Nickel & Uncoded 01/27/19 10:48 Gold Allergy CHESTNUTS Allergy Unknown Uncoded 01/27/19 10:48 CHIPS (SEASONED) Allergy Unknown Uncoded 01/27/19 10:48 cinnamic aldehyde Allergy Sores/Rash Uncoded 01/27/19 10:48 in Mouth disperse red 17 Allergy Unknown Uncoded 01/27/19 10:48 FLUORIDE AND CHLORIDE WATER Allergy Unknown Uncoded 01/27/19 10:48 fruit many types Allergy Itching Uncoded 01/27/19 10:48 [id number] MIX III Allergy Dyspnea Uncoded 01/27/19 10:48 NECTARINE Allergy Unknown Uncoded 01/27/19 10:48 PICKLED FOOD Allergy Unknown Uncoded 01/27/19 10:48 POTASSIUM CITRATE Allergy Unknown Uncoded 01/27/19 10:48 preservative in eye drops Allergy Itching & Uncoded 01/27/19 10:48 Burning STAR FRUIT Allergy Unknown Uncoded 01/27/19 10:48 TANGERINE Allergy Unknown Uncoded 01/27/19 10:48 VINEGAR Allergy Unknown Uncoded 01/27/19 10:48 walnut Allergy Itching & Uncoded 01/27/19 10:48 Tongue Swells Review of Systems ROS Statement: Those systems with pertinent positive or pertinent negative responses have been documented in the HPI. ROS Other: All systems not noted in ROS Statement are negative. Past Medical History Past Medical History: Fibromyalgia, Hyperlipidemia, Hypertension, Osteoarthritis (OA), Sleep Apnea/CPAP/BIPAP Additional Past Medical History / Comment(s): past hx. 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, DDD, loss of feeling in arms and hands, had seizure several years ago related to severe caffeine allergy History of Any Multi-Drug Resistant Organisms: ESBL Date of last positivie culture/infection: 05/14/15 MDRO Source:: Urine-ESBL Past Surgical History: Back Surgery, Breast Surgery, Cholecystectomy, Hysterectomy, Orthopedic Surgery, Tonsillectomy, Tubal Ligation Additional Past Surgical History / Comment(s): kiara foot surgery, left breast biopsy, kiara knee replacement, cystocele/rectocele repair, PAIN CLINIC PRO CEDURES, laminectomy 2012, lumbar fusion Feb 2015, May 12, 2015: surgery on back. Past Anesthesia/Blood Transfusion Reactions: Previous Problems w/ Anesthesia, Motion Sickness, Postoperative Nausea & Vomiting (PONV) Additional Past Anesthesia/Blood Transfusion Reaction / Comment(s): in recovery room-aspiration into lungs, DIFF WAKING Past Psychological History: Depression Smoking Status: Never smoker Past Alcohol Use History: None Reported Past Drug Use History: None Reported - Past Family History Father Family Medical History: Asthma, COPD, Coronary Artery Disease (CAD), Dementia Mother Family Medical History: Coronary Artery Disease (CAD), Dementia, Diabetes Mellitus, Hypertension Brother(s) Family Medical History: CVA/TIA, Diabetes Mellitus, Vascular Disorder Sister(s) Family Medical History: Liver Disease Daughter(s) Family Medical History: Hypertension Son(s) Family Medical History: Asthma General Exam - General Exam Comments Initial Comments: GENERAL: Patient is well-developed and well-nourished. Patient is nontoxic and well- hydrated and is in mild distress. ENT: Neck is soft and supple. No significant lymphadenopathy is noted. Oropharynx is clear. Moist mucous membranes. Neck has full range of motion without eliciting any pain. EYES: The sclera were anicteric and conjunctiva were pink and moist. Extraocular movements were intact and pupils were equal round and reactive to light. Eyelids were unremarkable. PULMONARY: Unlabored respirations. Good breath sounds bilaterally. No audible rales rhonchi or wheezing was noted. CARDIOVASCULAR: There is a regular rate and rhythm without any murmurs gallops or rubs. ABDOMEN: Soft and nontender with normal bowel sounds. No palpable organomegaly was noted. There is no palpable pulsatile mass. SKIN: Skin is clear with no lesions or rashes and otherwise unremarkable. NEUROLOGIC: Patient is alert and oriented x3. Cranial nerves II through XII are grossly intact. Motor and sensory are also intact. Normal speech, volume and content. Symmetrical smile. Cerebellar exam grossly intact. Straight leg test is normal. Patient has no palpable pain in the back. Patient can move around in bed twist and sit up in bed and not making the pain any worse. MUSCULOSKELETAL: Normal extremities with adequate strength and full range of motion. No lower extremity swelling or edema. No calf tenderness. LYMPHATICS: No significant lymphadenopathy is noted PSYCHIATRIC: Normal psychiatric evaluation. Limitations: no limitations Course Vital Signs 01/27/19 10:21 Temperature 97.8 F Pulse Rate 108 H Respiratory 18 Rate Blood Pressure 97/61 O2 Sat by Pulse 98 Oximetry Medical Decision Making - Medical Decision Making Computed tomography scan showed disc herniation at L1-L2 with something coachman onto the right neural foramen. I will begin to reevaluate the patient and she was sitting in bed and crossed watching TV and not in any distress. Patient will follow-up with her neurosurgeon so I will place the patient on some steroids and she will be discharged. - Lab Data Result diagrams: 01/27/19 11:20 01/27/19 11:20 Lab Results 01/27/19 01/27/19 Range/Units 11:20 11:20 WBC 10.4 (3.8-10.6) k/uL RBC 5.48 H (3.80-5.40) m/uL Hgb 15.4 (11.4-16.0) gm/dL Hct 46.0 (34.0-46.0) % MCV 83.9 (80.0-100.0) fL MCH 28.1 (25.0-35.0) pg MCHC 33.4 (31.0-37.0) g/dL RDW 12.4 (11.5-15.5) % Plt Count 286 (150-450) k/uL Neutrophils % 80 % Lymphocytes % 7 % Monocytes % 6 % Eosinophils % 4 % Basophils % 2 % Neutrophils # 8.3 H (1.3-7.7) k/uL Lymphocytes # 0.7 L (1.0-4.8) k/uL Monocytes # 0.6 (0-1.0) k/uL Eosinophils # 0.4 (0-0.7) k/uL Basophils # 0.2 (0-0.2) k/uL ESR 36 H (0-20) mm/hr Sodium 138 (137-145) mmol/L Potassium 3.3 L (3.5-5.1) mmol/L Chloride 100 (98-107) mmol/L Carbon Dioxide 29 (22-30) mmol/L Anion Gap 9 mmol/L BUN 15 (7-17) mg/dL Creatinine 0.75 (0.52-1.04) mg/dL Est GFR (CKD-EPI)AfAm >90 (>60 ml/min/1.73 sqM) Est GFR (CKD-EPI)NonAf 82 (>60 ml/min/1.73 sqM) Glucose 94 (74-99) mg/dL Calcium 9.4 (8.4-10.2) mg/dL Total Bilirubin 0.4 (0.2-1.3) mg/dL AST 22 (14-36) U/L ALT 26 (9-52) U/L Alkaline Phosphatase 93 (38-126) U/L Creatine Kinase <20 L (30-135) U/L C-Reactive Protein 88.9 H (<10.0) mg/L Total Protein 6.2 L (6.3-8.2) g/dL Albumin 3.4 L (3.5-5.0) g/dL Disposition Clinical Impression: Disc herniation Disposition: HOME SELF-CARE Instructions (If sedation given, give patient instructions): Lumbar Disc Herniation (ED) Prescriptions: predniSONE 40 mg PO DAILY #8 tab Is patient prescribed a controlled substance at d/c from ED?: No Referrals: Tesha Acuna MD [Primary Care Provider] - 1-2 days Time of Disposition: 13:23
[2019-01-27 11:51] LABS: Basophils # (A) 0.2 k/uL (0-0.2); Basophils % (A) 2 %; Eosinophils # (A) 0.4 k/uL (0-0.7); Eosinophils % (A) 4 %; HGB 15.4 gm/dL (11.4-16.0); Lymphocytes # (A) 0.7 k/uL (1.0-4.8); Lymphocytes % (A) 7 %; MCH 28.1 pg (25.0-35.0); MCHC 33.4 g/dL (31.0-37.0); MCV 83.9 fL (80.0-100.0); Mean Platelet Volume 7.3; Monocytes # (A) 0.6 k/uL (0-1.0); Monocytes % (A) 6 %; Neutrophils # (A) 8.3 k/uL (1.3-7.7); Neutrophils % (A) 80 %; Platelet Count 286 k/uL (150-450); RBC 5.48 m/uL (3.80-5.40); RDW 12.4 % (11.5-15.5); WBC 10.4 k/uL (3.8-10.6)
[2019-01-27 11:59] LABS: ALT 26 U/L (9-52); AST 22 U/L (14-36); African American GFR (CKD) >90 (>60 ml/min/1.73 sqM); Albumin 3.4 g/dL (3.5-5.0); Alkaline Phosphatase 93 U/L (38-126); Anion Gap 9 mmol/L; Blood Urea Nitrogen 15 mg/dL (7-17); C Reactive Protein 88.9 mg/L (<10.0); Calcium 9.4 mg/dL (8.4-10.2); Carbon Dioxide 29 mmol/L (22-30); Chloride 100 mmol/L (98-107); Creatine Kinase <20 U/L (30-135); Glucose 94 mg/dL (74-99); Potassium 3.3 mmol/L (3.5-5.1); Sodium 138 mmol/L (137-145); Total Bilirubin 0.4 mg/dL (0.2-1.3); Total Protein 6.2 g/dL (6.3-8.2)
[2019-01-27] MEDS ORDERED: diphenhydrAMINE 50 MG/ML 1 ML VIAL IVP STA (12:06)
[2019-01-27] MEDS ORDERED: FAMOTIDINE 20 MG/2 ML VIAL IV STA (12:06)
[2019-01-27] MEDS ORDERED: methylPREDNISolone SOD SUCCI 125 MG/2 ML VIAL IV STA (12:06)
[2019-01-27 12:47] LABS: Erythrocyte Sedimentation Rate 36 mm/hr (0-20)
--- NOTE | 2019-01-27 12:59 | CT ---
EXAMINATION TYPE: CT abdomen pelvis w con DATE OF EXAM: 01/27/2019 HISTORY: back pain with radiation to the legs CT DLP: 1042.7mGycm Automated Exposure Control for Dose Reduction was Utilized. CONTRAST: CT scan of the abdomen and pelvis is performed with IV Contrast, patient injected with 100 mL of Isov ue 300. COMPARISON: CTA chest dated 07/07/[address] abdomen pelvis dated 03/25/2018. FINDINGS: LUNG BASES: There are scattered bilateral subcentimeter pulmonary nodules marked on the right on imag e 1 that is partially visualized, 6 mm in the right lower lobe on image 2, 4 mm along the mediastinal border in the right middle lobe and image 3, 3 mm in the left lung base on image 12, 5 mm in the lef t lung base on image 17, and medially along the hemidiaphragm on image 20 measuring 3 mm. Pulmonary v ascular prominence is also seen suggesting fluid overload. LIVER/GB: Hepatic parenchyma is diffusely hypoattenuated in comparison to that of the spleen, most co mmonly seen in hepatic steatosis. This finding limits evaluation for hepatic masses. There is a too s mall to accurately characterize hypoattenuated hepatic lesion within the left hepatic lobe on image 1 8 measuring [address] of 03/25/2018, but limitedly demonstrate this lesion however that exam w as without contrast. No intrahepatic biliary ductal dilatation. No cholelithiasis. PANCREAS: No significant abnormality is seen. SPLEEN: No significant abnormality is seen. No splenomegaly. ADRENALS: No significant abnormality is seen. KIDNEYS: The 1.3 cm renal cyst is seen of the superior pole medially on the right cortical hypoattenu ated lesions are present on the left (at least 3 in number) that are subcentimeter and too small to a ccurately characterize. No hydronephrosis of either kidney. Resolution the previously seen left-sided hydronephrosis. BOWEL: No dilated large or small bowel. No pericolonic inflammatory fat stranding LYMPH NODES: No greater than 1cm abdominal or pelvic lymph nodes are appreciated. OSSEOUS STRUCTURES: There are extensive postsurgical changes of the lumbar spine with surgically fixa matt grade 1 anterolisthesis of L4 on L5. Extensive spray artifact is generated from particular screws and fixation rods from L3 through S1. Sclerotic endplate changes at L2-L3 and L5-S1 are seen. Resect ion of the posterior elements is present from L2 through S1. There is minimal retrolisthesis of L2 on L3. Bridging anterior osteophytes are seen of the visualized thoracolumbar spine. No vertebral body height loss and the visualized thoracic or lumbar spine. L1-L2 there is appearance of a right foraminal disc herniation creating severe right neural foraminal narrowing superimposed on a broad-based disc bulge. Mild spinal canal stenosis is seen. Left neural foramen is patent. L2-L3: Extensive facet arthropathy and retrolisthesis creating severe bilateral neural foraminal narr owing, left greater than right and at least mild spinal canal stenosis. L3-S1: Postsurgical change with severe limitation in visualization. IMPRESSION: 1. Probable right foraminal disc herniation at L1-L2 creating severe right neural foraminal narrowing and contributing to mild spinal canal stenosis. Extensive facet arthropathy and minimal retrolisthes is at L2-L3 creating mild spinal canal stenosis. Postsurgical change from L3 through S1. Susceptibili ty artifact and limits evaluation of the spinal canal and neural foramen. There is a surgically fixat ed grade 1 anterolisthesis of L4 on L5. Degree of neural foraminal narrowing and spinal canal stenosi s would be better assessed with MRI. 2. Bilateral scattered subcentimeter pulmonary nodules not identified on the prior CT thorax of 2017. Nonemergent follow-up CT thorax is recommended for full characterization of the chest.
[2019-01-27] MEDS ORDERED: KETOROLAC 60 MG/2 ML VIAL IVP STA (13:16)
[2019-01-27 13:34] VITALS: BP 110/65; PULSE 98; RESP 16
== END 2019-01-27 13:30 | disposition home or self-care (01) ==
LOC: EC 10:04
DX: M48.061 Spinal stenosis, lumbar region without neurogenic claudication (principal); M51.26 Other intervertebral disc displacement, lumbar region; M79.7 Fibromyalgia; E78.5 Hyperlipidemia, unspecified; F32.9 Major depressive disorder, single episode, unspecified; M19.90 Unspecified osteoarthritis, unspecified site; I10 Essential (primary) hypertension; Z79.899 Other long term (current) drug therapy; Z98.890 Other specified postprocedural states; Z91.048 Other nonmedicinal substance allergy status; Z88.5 Allergy status to narcotic agent; Z91.018 Allergy to other foods; Z88.8 Allergy status to other drugs, medicaments and biological substances; Z91.040 Latex allergy status; Z96.653 Presence of artificial knee joint, bilateral; Z87.828 Personal history of other (healed) physical injury and trauma; Z98.1 Arthrodesis status
CPT/HCPCS: 36415; 80053; 85652; 82550; 85025; 86140; 74177; 99284; 96374; 96375 ×3; J1200; J2930; J1885; Q9967

== ENCOUNTER 2019-02-04 00:01 | Emergency (ER) | payer MEDICARE, OTHER ==
[2019-02-04 00:11] VITALS: TEMP 98.2
[2019-02-04] MEDS ORDERED: MORPHINE SULFATE 5 MG/ML SYRINGE IVP STA (00:23)
--- NOTE | 2019-02-04 00:24 | ED ---
Back Pain HPI - General Chief Complaint: Psychiatric Symptoms Stated Complaint: Back Pain Time Seen by Provider: 02/04/19 00:23 Source: patient Limitations: no limitations - History of Present Illness Initial Comments: Brenda is a 68 yo female with extensive past medical and psychiatric history as well as a history of chronic pain. Patient presents the ER this evening for evaluation of persistent pain. Patient was evaluated approximately 2 weeks ago which time a computed tomography scan of her back revealed some likely spinal stenosis, patient was referred to pain management for outpatient follow-up. Patient followed up with her primary care physician and was prescribed tramadol however she reports it's not working. Upon arrival to the emergency department patient became hysterical stating that she can't live like this, she states she just wants her life and because she doesn't want to be in pain anymore. Denies any specific suicidal plan. - Related Data Home Medications Medication Instructions Recorded Confirmed Furosemide [Lasix] 20 mg PO QAM 07/14/14 01/27/19 Simvastatin [Zocor] 40 mg PO HS 07/14/14 01/27/19 FLUoxetine HCL [PROzac] 20 mg PO QAM 09/20/15 01/27/19 Cholecalciferol [Vitamin D3] 5,000 units PO QAM 10/20/15 01/27/19 Cranberry Fruit Extract [Cranberry] 500 mg PO BID 10/20/15 01/27/19 metroNIDAZOLE [Metrolotion] 1 applic TOPICAL BID 10/20/15 01/27/19 Carboxymethylcellulose Sodium 1 drop BOTH EYES BID 07/07/16 01/27/19 [Refresh Tears] Calcium Carbonate [Calcium] 1,200 mg PO DAILY 03/25/18 01/27/19 Donepezil HCl [Aricept] 20 mg PO HS 03/25/18 01/27/19 Aysha Root 1,300 mg PO BID 03/25/18 01/27/19 Ibuprofen [Motrin Ib] 200 mg PO Q6H PRN 01/27/19 01/27/19 Minocycline HCl [Minocin] 100 mg PO DAILY 01/27/19 01/27/19 Niacin (Flush Free) 500mg 500 mg PO DAILY 01/27/19 01/27/19 Vitamin B Complex 1 cap PO DAILY 01/27/19 01/27/19 Previous Rx's Medication Instructions Recorded predniSONE 40 mg PO DAILY #8 tab 11/12/19 Lidocaine 5% Patch [Lidoderm] 1 patch TOPICAL DAILY #30 patch 02/04/19 Allergies Allergy/AdvReac Type Severity Reaction Status Date / Time gold Au 198 Allergy Severe Swelling Verified 01/27/19 10:48 nickel Allergy Severe Swelling Verified 01/27/19 10:48 adhesive Allergy Itching/Sor Verified 01/27/19 10:48 es apple Allergy Unknown Verified 01/27/19 10:48 avocado Allergy Unknown Verified 01/27/19 10:48 banana Allergy Unknown Verified 01/27/19 10:48 beet Allergy Unknown Verified 01/27/19 10:48 broccoli Allergy Unknown Verified 01/27/19 10:48 caffeine Allergy Anaphylaxis Verified 01/27/19 10:48 Cauliflower Allergy Unknown Verified 01/27/19 10:48 poon Allergy Unknown Verified 01/27/19 10:48 chlorhexidine Allergy Anaphylaxis Verified 01/27/19 10:48 [From Hibiclens] chlorhexidine gluconate Allergy Anaphylaxis Verified 01/27/19 10:48 [From Hibiclens] cinnamon Allergy Swelling Verified 01/27/19 10:48 of Tongue citric acid Allergy Anaphylaxis Verified 01/27/19 10:48 formaldehyde Allergy Unknown- Verified 01/27/19 10:48 positive in testing that was done gabapentin Allergy Unknown Verified 01/27/19 10:48 hazelnut Allergy Unknown Verified 01/27/19 10:48 kiwi Allergy Unknown Verified 01/27/19 10:48 Latex, Natural Rubber Allergy Anaphylaxis Verified 01/27/19 10:48 lemon Allergy Unknown Verified 01/27/19 10:48 [place] Allergy Unknown Verified 01/27/19 10:48 losartan Allergy Unknown Verified 01/27/19 10:48 orange juice [[place]] Allergy Unknown Verified 01/27/19 10:48 papaya Allergy Unknown Verified 01/27/19 10:48 passion fruit Allergy Unknown Verified 01/27/19 10:48 peach Allergy Unknown Verified 01/27/19 10:48 pear Allergy Unknown Verified 01/27/19 10:48 Pepper Allergy Unknown Verified 01/27/19 10:48 plum Allergy Unknown Verified 01/27/19 10:48 potato Allergy Unknown Verified 01/27/19 10:48 povidone-iodine Allergy Anaphylaxis Verified 01/27/19 10:48 [From Betadine] raspberry Allergy Unknown Verified 01/27/19 10:48 red dye Allergy Anaphylaxis Verified 01/27/19 10:48 soap [From Betadine] Allergy Anaphylaxis Verified 01/27/19 10:48 Squash Allergy Unknown Verified 01/27/19 10:48 strawberry Allergy Unknown Verified 01/27/19 10:48 sulfabenzamide Allergy Dyspnea Verified 01/27/19 10:48 tomato Allergy Unknown Verified 01/27/19 10:48 tree nut [Pecan] Allergy Unknown Verified 01/27/19 10:48 walnut Allergy Unknown Verified 01/27/19 10:48 warfarin Allergy Unknown Verified 01/27/19 10:48 wheat Allergy Rash/Hives Verified 01/27/19 10:48 warfarin sodium AdvReac Severe Nausea/Weak Verified 01/27/19 10:48 [From Coumadin] ness codeine AdvReac Hallucinati Verified 01/27/19 10:48 ons diazepam [From Valium] AdvReac "Collapsed" Verified 01/27/19 10:48 losartan potassium AdvReac Cough Verified 01/27/19 10:48 [From Cozaar] oxycodone AdvReac "Collapsed" Verified 01/27/19 10:48 metal Allergy Severe Nickel & Uncoded 01/27/19 10:48 Gold Allergy CHESTNUTS Allergy Unknown Uncoded 01/27/19 10:48 CHIPS (SEASONED) Allergy Unknown Uncoded 01/27/19 10:48 cinnamic aldehyde Allergy Sores/Rash Uncoded 01/27/19 10:48 in Mouth disperse red 17 Allergy Unknown Uncoded 01/27/19 10:48 FLUORIDE AND CHLORIDE WATER Allergy Unknown Uncoded 01/27/19 10:48 fruit many types Allergy Itching Uncoded 01/27/19 10:48 [id number] MIX III Allergy Dyspnea Uncoded 01/27/19 10:48 NECTARINE Allergy Unknown Uncoded 01/27/19 10:48 PICKLED FOOD Allergy Unknown Uncoded 01/27/19 10:48 POTASSIUM CITRATE Allergy Unknown Uncoded 01/27/19 10:48 preservative in eye drops Allergy Itching & Uncoded 01/27/19 10:48 Burning STAR FRUIT Allergy Unknown Uncoded 01/27/19 10:48 TANGERINE Allergy Unknown Uncoded 01/27/19 10:48 VINEGAR Allergy Unknown Uncoded 01/27/19 10:48 walnut Allergy Itching & Uncoded 01/27/19 10:48 Tongue Swells Review of Systems ROS Statement: Those systems with pertinent positive or pertinent negative responses have been documented in the HPI. ROS Other: All systems not noted in ROS Statement are negative. Past Medical History Past Medical History: Fibromyalgia, Hyperlipidemia, Hypertension, Osteoarthritis (OA), Sleep Apnea/CPAP/BIPAP Additional Past Medical History / Comment(s): past hx. 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, DDD, loss of feeling in arms and hands, had seizure several years ago related to severe caffeine allergy History of Any Multi-Drug Resistant Organisms: ESBL Date of last positivie culture/infection: 05/14/15 MDRO Source:: Urine-ESBL Past Surgical History: Back Surgery, Breast Surgery, Cholecystectomy, Hysterecto my, Orthopedic Surgery, Tonsillectomy, Tubal Ligation Additional Past Surgical History / Comment(s): kiara foot surgery, left breast biopsy, kiara knee replacement, cystocele/rectocele repair, PAIN CLINIC PROCEDURES, laminectomy 2012, lumbar fusion Feb 2015, May 12, 2015: surgery on back. Past Anesthesia/Blood Transfusion Reactions: Previous Problems w/ Anesthesia, Motion Sickness, Postoperative Nausea & Vomiting (PONV) Additional Past Anesthesia/Blood Transfusion Reaction / Comment(s): in recovery room-aspiration into lungs, DIFF WAKING Past Psychological History: Depression Smoking Status: Never smoker Past Alcohol Use History: None Reported Past Drug Use History: None Reported - Past Family History Father Family Medical History: Asthma, COPD, Coronary Artery Disease (CAD), Dementia Mother Family Medical History: Coronary Artery Disease (CAD), Dementia, Diabetes Mellitus, Hypertension Brother(s) Family Medical History: CVA/TIA, Diabetes Mellitus, Vascular Disorder Sister(s) Family Medical History: Liver Disease Daughter(s) Family Medical History: Hypertension Son(s) Family Medical History: Asthma General Exam - General Exam Comments Initial Comments: Physical Exam GENERAL: Patient is well-developed and well-nourished. Patient is nontoxic and well- hydrated and is in no distress. HENT: Normocephalic, Atraumatic. EYES: PERRL, EOMI PULMONARY: Unlabored respirations. No audible rales rhonchi or wheezing was noted. CARDIOVASCULAR: There is a regular rate and rhythm without any murmurs gallops or rubs. ABDOMEN: Soft and nontender with normal bowel sounds. SKIN: Skin is clear with no lesions or rashes and otherwise unremarkable. : Deferred NEUROLOGIC: Patient is alert and oriented x3. Moving all extremities spontaneously MUSCULOSKELETAL: Normal extremities with adequate strength and full range of motion. No lower extremity swelling or edema. No calf tenderness. Normal flexion of the hips and knees, normal strength in plantar and dorsiflexion of the ankles PSYCHIATRIC: Hysterical upon arrival, screaming and thrashing around Limitations: no limitations Course Vital Signs 02/04/19 02/04/19 00:07 02:56 Temperature 98.2 F Pulse Rate 84 80 Respiratory 24 18 Rate Blood Pressure 186/98 126/75 O2 Sat by Pulse 98 100 Oximetry Medical Decision Making - Medical Decision Making The patient was seen and evaluated, patient complaining of persistent pain for 2 weeks, no acute changes in her pain. Patient is ambulatory with normal strength in her bilateral lower extremities, no loss of bowel or bladder continence, no constipation or urinary retention, normal sensation in lower extremities no signs of cauda equina. Patient does have psychiatric illness and seems somewhat histrionic upon arrival. Patient's pain was managed with morphine which her reports she's tolerated well and passed despite her multiple listed ALLERGIES including codeine causing hallucinations and Percocet causing anaphylaxis. In addition patient has a listed ALLERGY to acetaminophen resulting in anaphylaxis though the patient has been taking high-dose Tylenol with no reaction. After receiving morphine patient was resting much more comfortably. She did request to be evaluated by psychiatry and was evaluated by the EPS nurse. Patient contracted to safety stating that her pain could be managed she would be comfortable with plan for discharge home. Patient's pain was managed with morphine. Lidoderm patch was ordered as an adjunct therapy. This time patient stable for discharge home. Disposition Clinical Impression: Disc herniation Disposition: HOME SELF-CARE Condition: Stable Instructions (If sedation given, give patient instructions): Acute Low Back Pain (ED) Prescriptions: Lidocaine 5% Patch [Lidoderm] 1 patch TOPICAL DAILY #30 patch Is patient prescribed a controlled substance at d/c from ED?: No Referrals: Tesha Acuna MD [Primary Care Provider] - 1-2 days Gee Weeks DO [Doctor of Osteopathic Medicine] - 1-2 days Ольга Saldana MD [STAFF PHYSICIAN] - 1-2 days
[2019-02-04] MEDS ORDERED: MORPHINE SULFATE 4 MG/ML SYRINGE IVP STA (00:34)
[2019-02-04] MEDS ORDERED: LIDOCAINE 5% PATCH TOPICAL STA (02:04)
[2019-02-04 02:57] VITALS: BP 126/75; PULSE 80; RESP 18
== END 2019-02-04 02:59 | disposition home or self-care (01) ==
LOC: EC 00:01
DX: M53.80 Other specified dorsopathies, site unspecified (principal); R45.86 Emotional lability; M79.7 Fibromyalgia; E78.5 Hyperlipidemia, unspecified; I10 Essential (primary) hypertension; M19.90 Unspecified osteoarthritis, unspecified site; F32.9 Major depressive disorder, single episode, unspecified; Z88.5 Allergy status to narcotic agent; Z88.6 Allergy status to analgesic agent; Z88.2 Allergy status to sulfonamides; Z88.8 Allergy status to other drugs, medicaments and biological substances; Z91.018 Allergy to other foods; Z91.040 Latex allergy status; Z91.041 Radiographic dye allergy status; Z91.048 Other nonmedicinal substance allergy status; Z79.1 Long term (current) use of non-steroidal anti-inflammatories (NSAID); Z79.899 Other long term (current) drug therapy; Z96.653 Presence of artificial knee joint, bilateral; Z87.440 Personal history of urinary (tract) infections; Z87.448 Personal history of other diseases of urinary system; Z87.828 Personal history of other (healed) physical injury and trauma; Z86.69 Personal history of other diseases of the nervous system and sense organs; Z98.1 Arthrodesis status
CPT/HCPCS: 82075; 99284; 96374; J2270

== ENCOUNTER → 2019-03-19 | Outpatient (CLI) | payer MEDICARE, OTHER ==
[2019-03-19 10:17] VITALS: BP 121/90; PULSE 104; RESP 18
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
== END | disposition home or self-care (01) ==
LOC: PNWHC3 09:59
PROVIDERS: ATTEND Anesthesiology
DX: M47.816 Spondylosis without myelopathy or radiculopathy, lumbar region (principal); I10 Essential (primary) hypertension; E78.5 Hyperlipidemia, unspecified; M19.90 Unspecified osteoarthritis, unspecified site; Z98.1 Arthrodesis status; Z79.2 Long term (current) use of antibiotics; Z79.1 Long term (current) use of non-steroidal anti-inflammatories (NSAID); Z79.52 Long term (current) use of systemic steroids; Z79.899 Other long term (current) drug therapy; Z91.048 Other nonmedicinal substance allergy status; Z91.018 Allergy to other foods; Z88.3 Allergy status to other anti-infective agents; Z88.6 Allergy status to analgesic agent; Z91.040 Latex allergy status; Z88.4 Allergy status to anesthetic agent; Z91.041 Radiographic dye allergy status; Z88.2 Allergy status to sulfonamides; Z88.5 Allergy status to narcotic agent; Z88.8 Allergy status to other drugs, medicaments and biological substances
CPT/HCPCS: 99211

== ENCOUNTER → 2019-04-02 | Outpatient (CLI) | payer MEDICARE, OTHER ==
--- NOTE | 2019-04-02 13:17 | CONS ---
CONSULTATION DATE OF SERVICE: 04/02/2019 This 68-year-old lady has been evaluated in sleep center for obstructive sleep apnea- hypopnea syndrome. HISTORY OF PRESENT ILLNESS/SLEEP-WAKE EVALUATION: Patient had been diagnosed with obstructive sleep apnea about 15 years ago in another institution, was started treatment with CPAP but for about 1 year patient could not use her CPAP because she cannot tolerate the pressure. She also lost about 100 pounds of weight since the previous sleep study. Presently, her sleep schedule from around 11 p.m. until 5:30 a.m. She does have problem with falling asleep, although no TV in bedroom. She snores, has episodes of stopped breathing during sleep. She wakes up from sleep with episodes of choking and nocturia up to 4 times. During the day, she has problems with memory, concentration, irritability, depression, balance problems, sexual dysfunction. No history of hypnagogic hallucinations, sleep paralysis or cataplexy. Usually patient does not take any naps during the day. Converse Sleepiness Scale is 0. PAST MEDICAL HISTORY: Positive for depression, dementia, hyperlipidemia, , bullous pemphigoid, endometriosis, cardiac arrhythmia, back problems, knee problems. PAST SURGICAL HISTORY: Total hysterectomy, bilateral knee replacement 2011, lumbar fusion surgery 2015, bilateral cataract surgery 2016. SOCIAL HISTORY: Negative for smoking or using alcohol. FAMILY HISTORY: Positive for hypertension, angina, heart problems, hyperlipidemia, epilepsy, stroke, fibromyalgia, arthritis, asthma, sleep apnea, pneumonia, cancer, thyroid problems, restless legs. ALLERGIES: The patient has multiple allergies to ANESTHESIA AGENTS, FOODS, LATEX, CHEMICALS, CAFFEINE, CODEINE, CINNAMON, COUMADIN, COZAAR, FOOD DYES, VALIUM, WARFARIN, CHLORHEXIDINE, GABAPENTIN, MIDAZOLAM, LOSARTAN, SULFA, POTASSIUM CITRATE. PHYSICAL EXAMINATION: During physical exam, a lady without distress. VITAL SIGNS: BP 140/81, HR 70, RR 16, height 5 feet 4 inches, weight 157, body mass index 26.9, temperature 98.1, oxygen saturation at room air 96%. HEENT: PERRLA, EOMI. Oropharynx low position of soft palate. Mallampati 3- 4. NECK: Thirteen inches in circumference. LUNGS: Clear to percussion and to auscultation. Good air exchange. No wheezing or rhonchi. HEART: S1, S2 regular. No murmurs, gallops, or rubs. ABDOMEN: Soft and nontender. Bowel sounds are present. No organomegaly appreciated. EXTREMITIES: No clubbing or cyanosis. BILLING SPECIALIST: Awake, alert, and oriented X3. Cranial nerves 2 to 7 intact. There is no fasciculation or atrophy. noted. No focal deficits observed. IMPRESSION: 1. History of obstructive sleep apnea diagnosed 15 years ago, awakenings from sleep with gasping for air, Low position of soft palate. The patient lost about 100 pounds since the previous sleep study. Snoring. Obstructive sleep apnea-hypopnea syndrome. 2. Leg movements at night, possible restless legs, periodic limb movements. 3. Dementia. 4. Depression. 5. Hyperlipidemia. 6. History of . 7. History of bullous pemphigoid. 8. History of endometriosis, status post total hysterectomy. 9. History of cardiac arrhythmia. Results of cardiac cath was normal. 10.Status post bilateral knee replacement. 11.History of back problems, status post lumbar fusion in 2016. 12.Status post bilateral cataract surgery in 2016. 13.Multiple allergies to many MEDICATIONS and to LATEX, SOAP. PLAN: 1. Polysomnography for evaluation of patient's breathing during sleep. 2. CPAP/BiPAP titration if sleep study confirms obstructive sleep apnea-hypopnea syndrome. 3. Preferable position during sleep on the side. 4. No driving if patient feels any sleepiness. 5. I will see patient for follow up visit to explain results of testing and following plan. Thank you very much for referring this patient for consultation. Sincerely, Alphonso Kidd MD, PhD, FAASM Diplomat of [place] [employer] [place] [employer] [facility] Carlotta MMODL / IJN: [id number] /
== END | disposition home or self-care (01) ==
LOC: SLEEP 11:45
PROVIDERS: ATTEND Internal Medicine
DX: G47.33 Obstructive sleep apnea (adult) (pediatric) (principal); G25.89 Other specified extrapyramidal and movement disorders; F03.90 Unspecified dementia, unspecified severity, without behavioral disturbance, psychotic disturbance, mood disturbance, and anxiety; F32.9 Major depressive disorder, single episode, unspecified; E78.5 Hyperlipidemia, unspecified; Z87.2 Personal history of diseases of the skin and subcutaneous tissue; Z87.42 Personal history of other diseases of the female genital tract; Z90.710 Acquired absence of both cervix and uterus; Z86.79 Personal history of other diseases of the circulatory system; Z96.653 Presence of artificial knee joint, bilateral; Z98.1 Arthrodesis status; Z86.69 Personal history of other diseases of the nervous system and sense organs; Z98.890 Other specified postprocedural states; Z91.048 Other nonmedicinal substance allergy status; Z91.040 Latex allergy status; Z88.4 Allergy status to anesthetic agent; Z91.018 Allergy to other foods; Z88.5 Allergy status to narcotic agent; Z88.3 Allergy status to other anti-infective agents; Z88.2 Allergy status to sulfonamides; Z88.8 Allergy status to other drugs, medicaments and biological substances
CPT/HCPCS: 99211

== ENCOUNTER → 2019-05-06 | Outpatient (CLI) | payer MEDICARE, OTHER ==
[2019-05-06 13:51] LABS: Basophils % (A) 1 %; Eosinophils # (A) 0.1 k/uL (0-0.7); Eosinophils % (A) 1 %; HCT 46.6 % (34.0-46.0); HGB 14.9 gm/dL (11.4-16.0); Lymphocytes # (A) 1.3 k/uL (1.0-4.8); Lymphocytes % (A) 21 %; MCH 27.7 pg (25.0-35.0); MCV 86.8 fL (80.0-100.0); Mean Platelet Volume 7.4; Monocytes # (A) 0.4 k/uL (0-1.0); Monocytes % (A) 6 %; Neutrophils # (A) 4.4 k/uL (1.3-7.7); Neutrophils % (A) 70 %; Platelet Count 251 k/uL (150-450); RBC 5.37 m/uL (3.80-5.40); RDW 13.4 % (11.5-15.5); WBC 6.3 k/uL (3.8-10.6)
[2019-05-06 15:12] LABS: Appearance,Urine Clear (Clear); Bilirubin,Urine Negative (Negative); Blood,Urine Negative (Negative); Color,Urine Yellow; Glucose,Urine (UA) Negative (Negative); Ketones,Urine Negative (Negative); Protein,Urine Negative (Negative); Specific Gravity,Urine 1.005 (1.001-1.035)
[2019-05-06 15:13] LABS: Leukocyte Esterase,Urine Negative (Negative); Nitrite,Urine Negative (Negative); Urobilinogen,Urine <2.0 mg/dL (<2.0)
[2019-05-06 19:12] LABS: African American GFR (CKD) 87.8 (60.0-200.0); Non-African American GFR(CKD) 75.8 (60.0-200.0)
== END | disposition home or self-care (01) ==
LOC: LABWHC1 12:25
PROVIDERS: ATTEND Physician Assistant Medical
DX: M31.0 Hypersensitivity angiitis (principal)
CPT/HCPCS: 36415; 81003; 82565; 84520; 85025; 86038

== ENCOUNTER → 2019-05-14 | Outpatient (CLI) | payer MEDICARE, OTHER ==
--- NOTE | 2019-05-15 13:32 | MM ---
Reason for exam: screening (asymptomatic). Last mammogram was performed 1 year ago. History: Patient is postmenopausal and history of other cancer. Family history of breast cancer in maternal aunt at age 50. Cyst aspiration. Physical Findings: A clinical breast exam by your physician is recommended on an annual basis and results should be correlated with mammographic findings. MG Screening Mammo w CAD Bilateral CC and MLO view(s) were taken. XCCL view(s) were taken of the right breast. Prior study comparison: May 07, 2018, bilateral MG screening mammo w CAD. April 17, 2017, bilateral MG screening mammo w CAD. There are scattered fibroglandular densities. Stable grouped calcifications anterior 4 o'clock right breast. No significant changes when compared with prior studies. ASSESSMENT: Benign, BI-RAD 2 RECOMMENDATION: Routine screening mammogram of both breasts in 1 year.
== END | disposition home or self-care (01) ==
LOC: RADMAMWWP 12:24
PROVIDERS: ATTEND Family Medicine
DX: Z12.31 Encounter for screening mammogram for malignant neoplasm of breast (principal); Z80.3 Family history of malignant neoplasm of breast
CPT/HCPCS: 77067

== ENCOUNTER → 2020-05-20 | Outpatient (CLI) | payer MEDICARE, OTHER ==
--- NOTE | 2020-05-23 12:06 | MM ---
Reason for exam: screening (asymptomatic). Last mammogram was performed 1 year ago. History: Patient is postmenopausal and history of other cancer. Family history of breast cancer in maternal aunt at age 50. Cyst aspiration. Physical Findings: A clinical breast exam by your physician is recommended on an annual basis and results should be correlated with mammographic findings. MG Screening Mammo w CAD Bilateral CC and MLO view(s) were taken. Prior study comparison: May 14, 2019, bilateral MG screening mammo w CAD. May 07, 2018, bilateral MG screening mammo w CAD. There are scattered fibroglandular densities. Finding #1: There are round, diffuse/scattered and grouped calcifications in the right breast. Finding #2: There are vascular calcifications in the left breast. There is no discrete abnormality. ASSESSMENT: Benign, BI-RAD 2 RECOMMENDATION: Routine screening mammogram of both breasts in 1 year.
== END ==
LOC: RADMAMWWP 08:57
PROVIDERS: ATTEND Family Medicine
DX: Z12.31 Encounter for screening mammogram for malignant neoplasm of breast (principal); Z78.0 Asymptomatic menopausal state; Z80.3 Family history of malignant neoplasm of breast
CPT/HCPCS: 77067

== ENCOUNTER → 2020-08-05 | Outpatient (CLI) | payer MEDICARE, OTHER ==
[2020-08-05 20:46] LABS: Anion Gap 4.7 mmol/L (4.00-12.00); Carbon Dioxide 33.3 mmol/L (21.6-31.8)
[2020-08-05 20:47] LABS: HCT 43.1 % (37.2-46.3); HGB 13.5 g/dL (12.0-15.0); MCH 27.5 pg (27.0-32.0); MCHC 31.3 g/dL (32.0-37.0); MCV 87.8 fL (80.0-97.0); Mean Platelet Volume 10.4 fL (9.5-12.2); Platelet Count 236 X 10*3/uL (140-440); RBC 4.91 X 10*6/uL (4.10-5.20); RDW 13.2 % (11.5-14.5); WBC 5.79 X 10*3/uL (4.50-10.00)
== END | disposition home or self-care (01) ==
LOC: LABWHC1 12:15
PROVIDERS: ATTEND Psychiatry & Neurology Neurology
DX: F01.50 Vascular dementia, unspecified severity, without behavioral disturbance, psychotic disturbance, mood disturbance, and anxiety (principal); G93.40 Encephalopathy, unspecified
CPT/HCPCS: 36415; 80051; 82607; 85027

== ENCOUNTER → 2020-09-02 | Outpatient (CLI) | payer MEDICARE, OTHER ==
--- NOTE | 2020-09-02 16:24 | MR ---
EXAMINATION TYPE: MR brain wo con DATE OF EXAM: 09/02/2020 COMPARISON: Prior MRI brain September 03, 2018 and 2016 HISTORY: Early stage dementia. Memory loss. TECHNIQUE: Multiplanar, multisequence imaging of the brain and brainstem is performed without IV cont rast. FINDINGS: Diffusion weighted images demonstrate no evidence of a recent infarct or other diffusion abnormality. There is mild ventricular and sulcal prominence. Persistent areas of T2 hyperintensity greatest in th e periventricular white matter redemonstrated. No significant change from prior. Midline structures redemonstrate normal morphology. The craniocervical junction appears within mary l limits. Normal vascular flow voids are present. Dominant tortuous right vertebral artery incidental ly redemonstrated. The visualized sinuses remaining clear and the globes are intact. Nasal septal dev iation to the left of midline is again seen. IMPRESSION: Stable mild diffuse cerebral atrophy and chronic small vessel ischemic change. No signifi cant change from prior.
== END | disposition home or self-care (01) ==
LOC: RADMRIMAIN 09:42
PROVIDERS: ATTEND Psychiatry & Neurology Neurology
DX: F03.90 Unspecified dementia, unspecified severity, without behavioral disturbance, psychotic disturbance, mood disturbance, and anxiety (principal); G31.9 Degenerative disease of nervous system, unspecified; I67.82 Cerebral ischemia
CPT/HCPCS: 70551

== ENCOUNTER → 2020-09-05 | Outpatient (CLI) | payer MEDICARE, OTHER ==
--- NOTE | 2020-09-05 15:21 | EEG ---
ELECTROENCEPHALOGRAM REPORT DATE OF SERVICE: 09/05/2020. CLINICAL HISTORY: This is a 70-year-old woman with reported history of seizure, vascular dementia that is having episodes of falling and headaches. This video EEG is obtained to evaluate for seizure and epileptiform activity. RELEVANT MEDICATION: The patient is not on any antiepileptic drugs. EEG TYPE: A routine 21 channel EEG is performed with video using the 10/20 electrode placement system. DESCRIPTION: Wakefulness is only obtained. During wakefulness, there is a posterior dominant rhythm of low voltage that is well modulated, of 10.5 to 11 hertz activity. There is no physiological sleep architecture seen. There is no focal slowing. Interictal and ictal is none. ACTIVATION PROCEDURE: Photic stimulation did not evoke a posterior driving response. There is no abnormality during the photic stimulation. Hyperventilation is not performed. CLINICAL INTERPRETATION: This is a normal routine EEG. There are no focal slowing, epileptiform discharges or seizure on the EEG. Clinical correlation is recommended. RECOMMENDATION: If the patient continues to have any seizure-like activity or any concerns of seizure, then recommend a prolonged EEG. MMODL / IJN: [id number] / MTDDenzel
== END ==
LOC: NEUROMAIN 07:57
PROVIDERS: ATTEND Psychiatry & Neurology Neurology
DX: F01.50 Vascular dementia, unspecified severity, without behavioral disturbance, psychotic disturbance, mood disturbance, and anxiety (principal); G93.40 Encephalopathy, unspecified; Z91.018 Allergy to other foods; Z91.048 Other nonmedicinal substance allergy status; Z88.6 Allergy status to analgesic agent; Z91.02 Food additives allergy status; Z88.5 Allergy status to narcotic agent; Z88.8 Allergy status to other drugs, medicaments and biological substances; Z91.041 Radiographic dye allergy status; Z91.040 Latex allergy status; Z88.4 Allergy status to anesthetic agent
CPT/HCPCS: 95816

== ENCOUNTER → 2020-12-23 | Outpatient (CLI) | payer MEDICARE, OTHER ==
[2020-12-23 18:45] LABS: Basophils # (A) 0.04 X 10*3/uL (0.00-0.10); Basophils % (A) 0.7 %; Eosinophils # (A) 0.05 X 10*3/uL (0.04-0.35); Eosinophils % (A) 0.8 %; HCT 44.8 % (37.2-46.3); HGB 14.4 g/dL (12.0-15.0); Lymphocytes # (A) 1.74 X 10*3/uL (0.90-5.00); Lymphocytes % (A) 29.5 %; MCH 27.8 pg (27.0-32.0); MCHC 32.1 g/dL (32.0-37.0); MCV 86.5 fL (80.0-97.0); Mean Platelet Volume 10.3 fL (9.5-12.2); Monocytes # (A) 0.43 X 10*3/uL (0.20-1.00); Monocytes % (A) 7.3 %; Neutrophils # (A) 3.62 X 10*3/uL (1.80-7.70); Neutrophils % (A) 61.5 %; Platelet Count 281 X 10*3/uL (140-440); RBC 5.18 X 10*6/uL (4.10-5.20); RDW 12.8 % (11.5-14.5); WBC 5.89 X 10*3/uL (4.50-10.00)
[2020-12-23 21:40] LABS: African American GFR (CKD) 83.2 (60.0-200.0); Albumin 4.3 g/dL (3.8-4.9); Albumin/Globulin Ratio 2.13 (1.60-3.17); Anion Gap 14.1 mmol/L (4.00-12.00); BUN/Creat Ratio 10.92 Ratio (12.00-20.00); Calcium 9.4 mg/dL (8.7-10.3); Carbon Dioxide 25.4 mmol/L (21.6-31.8); Non-African American GFR(CKD) 71.8 (60.0-200.0); Potassium 3.8 mmol/L (3.5-5.5); T4, Free (Free Thyroxine) 1.23 ng/dL (0.800-1.800); Total Bilirubin 0.4 mg/dL (0.30-1.20); Total Protein 6.3 g/dL (6.2-8.2)
== END | disposition home or self-care (01) ==
LOC: LABWHC1 13:04
PROVIDERS: ATTEND Family Medicine
DX: K62.5 Hemorrhage of anus and rectum (principal)
CPT/HCPCS: 36415; 80053; 84439; 84443; 85025; 86480

== ENCOUNTER → 2021-06-02 | Outpatient (CLI) | payer MEDICARE, OTHER ==
--- NOTE | 2021-06-02 07:22 | MR ---
EXAMINATION TYPE: MR brain wo con DATE OF EXAM: 06/02/2021 COMPARISON: MRI brain September 02, 2020 HISTORY: Dizziness, dementia TECHNIQUE: Multiplanar, multisequence imaging of the brain and brainstem is performed without IV cont rast. FINDINGS: Diffusion weighted images demonstrate no evidence of a recent infarct or other diffusion abnormality. There is mild ventricular and sulcal prominence redemonstrated. Areas of T2 hyperintensity in the per iventricular white matter are again seen. Midline structures redemonstrate normal morphology. The craniocervical junction remains within mary l limits. Normal vascular flow voids are present. Mild mucosal thickening involving the ethmoid sinus es otherwise paranasal sinuses are clear and globes are intact. No suspicious opacification of the ma stoid air cells. IMPRESSION: Mild diffuse age-related cerebral atrophy and chronic small vessel ischemic change redemo nstrated. Mild chronic ethmoid sinusitis.
== END | disposition home or self-care (01) ==
LOC: RADMRIMAIN 06:36
PROVIDERS: ATTEND Psychiatry & Neurology Neurology
DX: I67.82 Cerebral ischemia (principal); G31.89 Other specified degenerative diseases of nervous system; J32.2 Chronic ethmoidal sinusitis
CPT/HCPCS: 70551

== ENCOUNTER → 2021-07-20 | Outpatient (CLI) | payer MEDICARE, OTHER ==
--- NOTE | 2021-07-24 09:57 | MM ---
Reason for exam: screening (asymptomatic). Last mammogram was performed 1 year and 2 months ago. History: Patient is postmenopausal and history of other cancer. Family history of breast cancer in maternal aunt at age 50. Cyst aspiration. Physical Findings: A clinical breast exam by your physician is recommended on an annual basis and results should be correlated with mammographic findings. MG 3D Screening Mammo W/Cad Bilateral CC and MLO view(s) were taken. Prior study comparison: May 20, 2020, bilateral MG screening mammo w CAD. May 14, 2019, bilateral MG screening mammo w CAD. There are scattered fibroglandular densities. No significant changes when compared with prior studies. ASSESSMENT: Benign, BI-RAD 2 RECOMMENDATION: Routine screening mammogram of both breasts in 1 year.
== END | disposition home or self-care (01) ==
LOC: RADMAMWWP 16:15
PROVIDERS: ATTEND Family Medicine
DX: Z12.31 Encounter for screening mammogram for malignant neoplasm of breast (principal)
CPT/HCPCS: 77063; 77067

== ENCOUNTER → 2021-11-22 | Outpatient (CLI) | payer MEDICARE, OTHER | END | disposition home or self-care (01) | LOC: LABWHC1 12:07 | PROVIDERS: ATTEND Nurse Practitioner Family | DX: R19.4 Change in bowel habit (principal) | CPT/HCPCS: 36415; 83516; 85652; 86140 ==

== ENCOUNTER 2021-12-17 09:24 | Emergency (ER) | payer MEDICARE, OTHER ==
[2021-12-17 09:32] VITALS: TEMP 97.9
[2021-12-17] MEDS ORDERED: SODIUM CHLORIDE 0.9% 500 ML 500 ML IV ONE (09:45)
[2021-12-17] MEDS ORDERED: diphenhydrAMINE 50 MG/ML 1 ML VIAL IVP STA (09:46)
[2021-12-17 10:33] LABS: Basophils # (A) 0.1 k/uL (0-0.2); Basophils % (A) 1 %; Eosinophils # (A) 0.2 k/uL (0-0.7); Eosinophils % (A) 3 %; HGB 14.2 gm/dL (11.4-16.0); Lymphocytes # (A) 1.6 k/uL (1.0-4.8); Lymphocytes % (A) 20 %; MCH 28.1 pg (25.0-35.0); MCHC 32.2 g/dL (31.0-37.0); MCV 87.4 fL (80.0-100.0); Mean Platelet Volume 7.6; Monocytes # (A) 0.4 k/uL (0-1.0); Monocytes % (A) 5 %; Neutrophils # (A) 5.6 k/uL (1.3-7.7); Neutrophils % (A) 70 %; Platelet Count 243 k/uL (150-450); RBC 5.04 m/uL (3.80-5.40); RDW 12.9 % (11.5-15.5); WBC 7.9 k/uL (3.8-10.6)
[2021-12-17 10:43] LABS: ALT 39 U/L (4-34); AST 43 U/L (14-36); African American GFR (CKD) 70 (>60 ml/min/1.73 sqM); Albumin 3.9 g/dL (3.5-5.0); Alkaline Phosphatase 95 U/L (38-126); Anion Gap 7 mmol/L; Blood Urea Nitrogen 19 mg/dL (7-17); Calcium 9.1 mg/dL (8.4-10.2); Carbon Dioxide 30 mmol/L (22-30); Chloride 102 mmol/L (98-107); Glucose 81 mg/dL (74-99); Magnesium 1.9 mg/dL (1.6-2.3); Non-African American GFR(CKD) 61 (>60 ml/min/1.73 sqM); Potassium 4.1 mmol/L (3.5-5.1); Sodium 139 mmol/L (137-145); Total Bilirubin 0.5 mg/dL (0.2-1.3)
[2021-12-17 10:48] LABS: Appearance,Urine Cloudy (Clear); Bilirubin,Urine Negative (Negative); Blood,Urine Negative (Negative); Color,Urine Yellow; Glucose,Urine (UA) Negative (Negative); Hyaline Casts,Urine 3 /lpf (0-2); Ketones,Urine Negative (Negative); Leukocyte Esterase,Urine Trace (Negative); Mucus,Urine Few /hpf; Nitrite,Urine Negative (Negative); Protein,Urine Trace (Negative); RBC,Urine 19 /hpf (0-5); Specific Gravity,Urine 1.023 (1.001-1.035); Squamous Epithelial Cell,Urine 1 /hpf (0-4); Urobilinogen,Urine <2.0 mg/dL (<2.0); WBC,Urine 4 /hpf (0-5)
--- NOTE | 2021-12-17 10:56 | ED ---
General Adult HPI - General Chief complaint: Neuro Symptoms/Deficit Stated complaint: Uncontrolled Shaking Time Seen by Provider: 12/17/21 09:36 Source: patient, RN notes reviewed, old records reviewed Mode of arrival: ambulatory Limitations: no limitations - History of Present Illness Initial comments: 71-year-old female history of vascular dementia presenting with tremor which is been present for the past several days and has been worsening. Patient has a tremor affecting both the upper and the lower extremities. No focal numbness or weakness. No fever. No chest pain or abdominal pain. - Related Data Home Medications Medication Instructions Recorded Confirmed Simvastatin [Zocor] 40 mg PO HS 07/14/14 03/19/19 FLUoxetine HCL [PROzac] 20 mg PO QAM 09/20/15 03/19/19 Cranberry Fruit Extract [Cranberry] 500 mg PO BID 10/20/15 03/19/19 metroNIDAZOLE [Metrolotion] 1 applic TOPICAL BID 10/20/15 03/19/19 Carboxymethylcellulose Sodium 1 drop BOTH EYES BID 07/07/16 03/19/19 [Refresh Tears] Donepezil HCl [Aricept] 20 mg PO HS 03/25/18 03/19/19 Aysha Root 1,300 mg PO BID 03/25/18 03/19/19 Ibuprofen [Motrin Ib] 200 mg PO Q6H PRN 01/27/19 03/19/19 Calcium Carbonate/Vitamin D3 1 each PO MOTH 03/16/19 03/19/19 [Calcium 500-Vit D3 200 Tablet] Clobetasol Propionate [Temovate 1 applic TOPICAL DAILY PRN 03/16/19 03/19/19 0.05% Cream] Furosemide [Lasix] 20 mg PO DAILY 03/16/19 03/19/19 Multivit-Min/Iron/Folic/Lutein 1 each PO DAILY 03/16/19 03/19/19 [Centrum Silver Women Tablet] Allergies Allergy/AdvReac Type Severity Reaction Status Date / Time gold Au 198 Allergy Severe Swelling Verified 03/16/19 09:22 nickel Allergy Severe Swelling Verified 12/17/21 09:33 acetaminophen [From Percocet] Allergy Anaphylaxis Verified 12/17/21 09:33 adhesive Allergy Itching/Sor Verified 12/17/21 09:33 es apple Allergy Unknown Verified 12/17/21 09:33 avocado Allergy Unknown Verified 12/17/21 09:33 banana Allergy Unknown Verified 12/17/21 09:33 beet Allergy Unknown Verified 12/17/21 09:33 broccoli Allergy Unknown Verified 12/17/21 09:33 caffeine Allergy Anaphylaxis Verified 12/17/21 09:33 Cauliflower Allergy Unknown Verified 12/17/21 09:33 poon Allergy Unknown Verified 12/17/21 09:33 chlorhexidine Allergy Anaphylaxis Verified 12/17/21 09:33 [From Hibiclens] chlorhexidine gluconate Allergy Anaphylaxis Verified 12/17/21 09:33 [From Hibiclens] cinnamon Allergy Swelling Verified 12/17/21 09:33 of Tongue citric acid Allergy Anaphylaxis Verified 12/17/21 09:33 formaldehyde Allergy Unknown- Verified 12/17/21 09:33 positive in testing that was done gabapentin Allergy Unknown Verified 12/17/21 09:33 hazelnut Allergy Unknown Verified 12/17/21 09:33 ketamine Allergy Anaphylaxis Verified 12/17/21 09:33 kiwi Allergy Unknown Verified 12/17/21 09:33 Latex, Natural Rubber Allergy Anaphylaxis Verified 12/17/21 09:33 lemon Allergy Unknown Verified 12/17/21 09:33 um[place]illa tribe Allergy Unknown Verified 12/17/21 09:33 losartan Allergy Unknown Verified 12/17/21 09:33 midazolam [From Versed] Allergy Anaphylaxis Verified 12/17/21 09:33 orange juice [[place]] Allergy Unknown Verified 12/17/21 09:33 papaya Allergy Unknown Verified 12/17/21 09:33 passion fruit Allergy Unknown Verified 12/17/21 09:33 peach Allergy Unknown Verified 12/17/21 09:33 pear Allergy Unknown Verified 12/17/21 09:33 Pepper Allergy Unknown Verified 12/17/21 09:33 plum Allergy Unknown Verified 12/17/21 09:33 potato Allergy Unknown Verified 12/17/21 09:33 povidone-iodine Allergy Anaphylaxis Verified 12/17/21 09:33 [From Betadine] raspberry Allergy Unknown Verified 12/17/21 09:33 red dye Allergy Anaphylaxis Verified 12/17/21 09:33 soap [From Betadine] Allergy Anaphylaxis Verified 12/17/21 09:33 Squash Allergy Unknown Verified 12/17/21 09:33 strawberry Allergy Unknown Verified 12/17/21 09:33 sulfabenzamide Allergy Dyspnea Verified 12/17/21 09:33 tomato Allergy Unknown Verified 12/17/21 09:33 tree nut [Pecan] Allergy Unknown Verified 12/17/21 09:33 walnut Allergy Unknown Verified 12/17/21 09:33 warfarin Allergy Unknown Verified 12/17/21 09:33 wheat Allergy Rash/Hives Verified 12/17/21 09:33 warfarin sodium AdvReac Severe Nausea/Weak Verified 12/17/21 09:33 [From Coumadin] ness codeine AdvReac Hallucinati Verified 12/17/21 09:33 ons diazepam [From Valium] AdvReac "Collapsed" Verified 12/17/21 09:33 losartan potassium AdvReac Cough Verified 12/17/21 09:33 [From Cozaar] oxycodone AdvReac "Collapsed" Verified 12/17/21 09:33 metal Allergy Severe Nickel & Uncoded 12/17/21 09:33 Gold Allergy body lotions Allergy Unknown Uncoded 12/17/21 09:33 CHESTNUTS Allergy Unknown Uncoded 12/17/21 09:33 CHIPS (SEASONED) Allergy Unknown Uncoded 12/17/21 09:33 cinnamic aldehyde Allergy Sores/Rash Uncoded 12/17/21 09:33 in Mouth disperse red 17 Allergy Unknown Uncoded 12/17/21 09:33 fabric softener Allergy Unknown Uncoded 12/17/21 09:33 FLUORIDE AND CHLORIDE WATER Allergy Unknown Uncoded 12/17/21 09:33 fragnances Allergy Unknown Uncoded 12/17/21 09:33 fruit many types Allergy Itching Uncoded 12/17/21 09:33 laundry soap Allergy Unknown Uncoded 12/17/21 09:33 [id number] MIX III Allergy Dyspnea Uncoded 12/17/21 09:33 NECTARINE Allergy Unknown Uncoded 12/17/21 09:33 PICKLED FOOD Allergy Unknown Uncoded 12/17/21 09:33 POTASSIUM CITRATE Allergy Unknown Uncoded 12/17/21 09:33 preservative in eye drops Allergy Itching & Uncoded 12/17/21 09:33 Burning STAR FRUIT Allergy Unknown Uncoded 12/17/21 09:33 TANGERINE Allergy Unknown Uncoded 12/17/21 09:33 toothpaste Allergy Unknown Uncoded 12/17/21 09:33 VINEGAR Allergy Unknown Uncoded 12/17/21 09:33 walnut Allergy Itching & Uncoded 12/17/21 09:33 Tongue Swells Review of Systems ROS Statement: Those systems with pertinent positive or pertinent negative responses have been documented in the HPI. ROS Other: All systems not noted in ROS Statement are negative. Past Medical History Past Medical History: Fibromyalgia, Hyperlipidemia, Hypertension, Osteoarthritis (OA), Sleep Apnea/CPAP/BIPAP Additional Past Medical History / Comment(s): past hx. 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, DDD, loss of feeling in arms and hands, had seizure several years ago related to severe caffeine allergy History of Any Multi-Drug Resistant Organisms: ESBL Date of last positivie culture/infection: 05/14/15 MDRO Source:: Urine-ESBL Past Surgical History: Back Surgery, Breast Surgery, Cholecystectomy, Hysterectomy, Orthopedic Surgery, Tonsillectomy, Tubal Ligation Additional Past Surgical History / Comment(s): kiara foot surgery, left breast biopsy, kiara knee replacement, cystocele/rectocele repair, PAIN CLINIC PROCEDURES, laminectomy 2012, lumbar fusion Feb 2015, May 12, 2015: surgery on back. Past Anesthesia/Blood Transfusion Reactions: Previous Problems w/ Anesthesia, Motion Sickness, Postoperative Nausea & Vomiting (PONV) Additional Past Anesthesia/Blood Transfusion Reaction / Comment(s): in recovery room-aspiration into lungs, DIFF WAKING Past Psychological History: Depression Smoking Status: Never smoker Past Alcohol Use History: None Reported Past Drug Use History: None Reported - Past Family History Father Family Medical History: Asthma, COPD, Coronary Artery Disease (CAD), Dementia Mother Family Medical History: Coronary Artery Disease (CAD), Dementia, Diabetes Mellitus, Hypertension Brother(s) Family Medical History: CVA/TIA, Diabetes Mellitus, Vascular Disorder Sister(s) Family Medical History: Liver Disease Daughter(s) Family Medical History: Hypertension Son(s) Family Medical History: Asthma General Exam Limitations: no limitations General appearance: alert, in no apparent distress, anxious Head exam: Present: atraumatic, normocephalic Eye exam: Present: normal appearance, PERRL ENT exam: Present: normal exam Neck exam: Present: normal inspection. Absent: tenderness, meningismus Respiratory exam: Present: normal lung sounds bilaterally. Absent: respiratory distress, wheezes Cardiovascular Exam: Present: regular rate, normal rhythm GI/Abdominal exam: Present: soft. Absent: distended, tenderness, guarding Extremities exam: Present: normal inspection, normal capillary refill. Absent: pedal edema Neurological exam: Present: alert, oriented X3, CN II-XII intact, other (Bilateral upper and lower extremity tremor). Absent: motor sensory deficit Psychiatric exam: Present: anxious Skin exam: Present: warm, dry, intact. Absent: cyanosis, diaphoretic Course Vital Signs 12/17/21 09:30 Temperature 97.9 F Pulse Rate 88 Respiratory 22 Rate Blood Pressure 123/87 O2 Sat by Pulse 99 Oximetry - Reevaluation(s) Reevaluation #1: 12/17/21 10:25 I did discuss case with Dr. Eric mondragon for neurology who recommends thyroid studies, this will be obtained in the emergency department. EKG Findings - EKG Comments: EKG Findings:: EKG: Sinus bradycardia rate of 58, LA interval 152, QRS duration 86, QTC [address] segment elevation. Medical Decision Making - Medical Decision Making 71-year-old female presenting with tremor over the past several days. This is in both hands and both feet. The tremor does stop with intention over the patient is redirected. There is no focal neurologic findings. I did perform laboratory testing CBC, CMP, ammonia, and TSH. The testing is unremarkable. I have discussed case with Dr. Levine who had indicated that his laboratory testing were remarkable the patient should follow up as an outpatient she has an appointment with her neurologist. She's given strict return parameters. - Lab Data Result diagrams: 12/17/21 10:24 12/17/21 10:24 Lab Results 12/17/21 12/17/21 12/17/21 Range/Units 10:24 10:24 10:24 WBC 7.9 (3.8-10.6) k/uL RBC 5.04 (3.80-5.40) m/uL Hgb 14.2 (11.4-16.0) gm/dL Hct 44.0 (34.0-46.0) % MCV 87.4 (80.0-100.0) fL MCH 28.1 (25.0-35.0) pg MCHC 32.2 (31.0-37.0) g/dL RDW 12.9 (11.5-15.5) % Plt Count 243 (150-450) k/uL MPV 7.6 Neutrophils % 70 % Lymphocytes % 20 % Monocytes % 5 % Eosinophils % 3 % Basophils % 1 % Neutrophils # 5.6 (1.3-7.7) k/uL Lymphocytes # 1.6 (1.0-4.8) k/uL Monocytes # 0.4 (0-1.0) k/uL Eosinophils # 0.2 (0-0.7) k/uL Basophils # 0.1 (0-0.2) k/uL Sodium 139 (137-145) mmol/L Potassium 4.1 (3.5-5.1) mmol/L Chloride 102 (98-107) mmol/L Carbon Dioxide 30 (22-30) mmol/L Anion Gap 7 mmol/L BUN 19 H (7-17) mg/dL Creatinine 0.95 (0.52-1.04) mg/dL Est GFR (CKD-EPI)AfAm 70 (>60 ml/min/1.73 sqM) Est GFR (CKD-EPI)NonAf 61 (>60 ml/min/1.73 sqM) Glucose 81 (74-99) mg/dL Calcium 9.1 (8.4-10.2) mg/dL Magnesium 1.9 (1.6-2.3) mg/dL Total Bilirubin 0.5 (0.2-1.3) mg/dL AST 43 H (14-36) U/L ALT 39 H (4-34) U/L Alkaline Phosphatase 95 (38-126) U/L Ammonia (<30) umol/L Total Protein 6.0 L (6.3-8.2) g/dL Albumin 3.9 (3.5-5.0) g/dL TSH 0.523 (0.465-4.680) mIU/L Urine Color Yellow Urine Appearance Cloudy H (Clear) Urine pH 6.0 (5.0-8.0) Ur Specific [place] 1.023 (1.001-1.035) Urine Protein Trace H (Negative) Urine Glucose (UA) Negative (Negative) Urine Ketones Negative (Negative) Urine Blood Negative (Negative) Urine Nitrite Negative (Negative) Urine Bilirubin Negative (Negative) Urine Urobilinogen <2.0 (<2.0) mg/dL Ur Leukocyte Esterase Trace H (Negative) Urine RBC 19 H (0-5) /hpf Urine WBC 4 (0-5) /hpf Ur Squamous Epith Cells 1 (0-4) /hpf Hyaline Casts 3 H (0-2) /lpf Urine Mucus Few H (None) /hpf 12/17/21 Range/Units 10:24 WBC (3.8-10.6) k/uL RBC (3.80-5.40) m/uL Hgb (11.4-16.0) gm/dL Hct (34.0-46.0) % MCV (80.0-100.0) fL MCH (25.0-35.0) pg MCHC (31.0-37.0) g/dL RDW (11.5-15.5) % Plt Count (150-450) k/uL MPV Neutrophils % % Lymphocytes % % Monocytes % % Eosinophils % % Basophils % % Neutrophils # (1.3-7.7) k/uL Lymphocytes # (1.0-4.8) k/uL Monocytes # (0-1.0) k/uL Eosinophils # (0-0.7) k/uL Basophils # (0-0.2) k/uL Sodium (137-145) mmol/L Potassium (3.5-5.1) mmol/L Chloride (98-107) mmol/L Carbon Dioxide (22-30) mmol/L Anion Gap mmol/L BUN (7-17) mg/dL Creatinine (0.52-1.04) mg/dL Est GFR (CKD-EPI)AfAm (>60 ml/min/1.73 sqM) Est GFR (CKD-EPI)NonAf (>60 ml/min/1.73 sqM) Glucose (74-99) mg/dL Calcium (8.4-10.2) mg/dL Magnesium (1.6-2.3) mg/dL Total Bilirubin (0.2-1.3) mg/dL AST (14-36) U/L ALT (4-34) U/L Alkaline Phosphatase (38-126) U/L Ammonia <9 (<30) umol/L Total Protein (6.3-8.2) g/dL Albumin (3.5-5.0) g/dL TSH (0.465-4.680) mIU/L Urine Color Urine Appearance (Clear) Urine pH (5.0-8.0) Ur Specific [place] (1.001-1.035) Urine Protein (Negative) Urine Glucose (UA) (Negative) Urine Ketones (Negative) Urine Blood (Negative) Urine Nitrite (Negative) Urine Bilirubin (Negative) Urine Urobilinogen (<2.0) mg/dL Ur Leukocyte Esterase (Negative) Urine RBC (0-5) /hpf Urine WBC (0-5) /hpf Ur Squamous Epith Cells (0-4) /hpf Hyaline Casts (0-2) /lpf Urine Mucus (None) /hpf Disposition Clinical Impression: Tremor Disposition: HOME SELF-CARE Condition: Fair Instructions (If sedation given, give patient instructions): Tremors (ED) Is patient prescribed a controlled substance at d/c from ED?: No Referrals: Guero Tejeda III, MD [Primary Care Provider] - 1-2 days Time of Disposition: 11:28
[2021-12-17 11:47] VITALS: BP 125/74; PULSE 62; RESP 18
== END 2021-12-17 11:45 | disposition home or self-care (01) ==
LOC: EC 09:24
DX: R25.1 Tremor, unspecified (principal); I10 Essential (primary) hypertension; E78.5 Hyperlipidemia, unspecified; Z99.89 Dependence on other enabling machines and devices; Z91.018 Allergy to other foods; Z91.048 Other nonmedicinal substance allergy status; Z88.8 Allergy status to other drugs, medicaments and biological substances; Z88.4 Allergy status to anesthetic agent; Z91.040 Latex allergy status; Z88.1 Allergy status to other antibiotic agents
CPT/HCPCS: 36415; 80053; 81001; 82140; 83735; 84443; 85025; 93005; 99284

== ENCOUNTER → 2022-03-01 | Outpatient (CLI) | payer MEDICARE, OTHER ==
--- NOTE | 2022-03-01 11:08 | CT ---
EXAMINATION TYPE: CT brain wo con CT DLP: 1153 mGycm, Automated exposure control for dose reduction was used. DATE OF EXAM: 03/01/2022 9:24 AM COMPARISON: 05/14/2015 CT, MR brain 06/02/2021. CLINICAL INDICATION:Female, 71 years old with history of R55 syncope. R42 dizziness, R51.9 headache, Syncope, Headache and dizziness TECHNIQUE: Brain: Axial CT images of the brain were obtained with coronal and sagittal reformats created and rev iewed. Contrast used: None. Oral contrast used: None. FINDINGS: Brain: Extra-axial spaces: No abnormal extra-axial fluid collections. Ventricular system: Within normal limits Cerebral parenchyma: No acute intraparenchymal hemorrhage or mass effect. The strauss-white junction is well differentiated. Cerebellum: Unremarkable. Mass effect: No evidence of midline shift. Intracranial vasculature: unremarkable Soft tissues: Normal. Calvarium/osseous structures: No depressed skull fracture. Paranasal sinuses and mastoid air cells: Mild scattered paranasal sinus disease. Visualized orbits: Bilateral aphakia IMPRESSION: No acute intracranial process.
== END | disposition home or self-care (01) ==
LOC: RADCTMAIN 09:05
PROVIDERS: ATTEND Family Medicine
DX: R55 Syncope and collapse (principal); R42 Dizziness and giddiness; R51.9 Headache, unspecified; R20.2 Paresthesia of skin; R25.1 Tremor, unspecified; R26.89 Other abnormalities of gait and mobility; F01.511 Vascular dementia, unspecified severity, with agitation
CPT/HCPCS: 70450

== ENCOUNTER → 2022-06-11 | Outpatient (CLI) | payer MEDICARE, OTHER ==
[2022-06-11 18:14] LABS: Basophils # (A) 0.05 X 10*3/uL (0.00-0.10); Basophils % (A) 0.8 %; Eosinophils # (A) 0.16 X 10*3/uL (0.04-0.35); Eosinophils % (A) 2.5 %; HCT 46.9 % (37.2-46.3); HGB 14.5 g/dL (12.0-15.0); Immature Grans, Automated 0.3 %; Lymphocytes # (A) 1.99 X 10*3/uL (0.90-5.00); Lymphocytes % (A) 30.7 %; MCH 27.5 pg (27.0-32.0); MCHC 30.9 g/dL (32.0-37.0); Mean Platelet Volume 10.1 fL (9.5-12.2); Monocytes # (A) 0.46 X 10*3/uL (0.20-1.00); Monocytes % (A) 7.1 %; NRBC Per 100 WBC 0 /100 WBCS (0.0-0.0); Neutrophils % (A) 58.6 %; Platelet Count 250 X 10*3/uL (140-440); RBC 5.27 X 10*6/uL (4.10-5.20); RDW 13.3 % (11.5-14.5); WBC 6.48 X 10*3/uL (4.50-10.00)
[2022-06-11 19:21] LABS: ALT 24 U/L (8-44); AST 22 U/L (13-35); African American GFR (CKD) 64.9 (60.0-200.0); Albumin 4.2 g/dL (3.8-4.9); Albumin/Globulin Ratio 2.13 (1.60-3.17); Alkaline Phosphatase 89 U/L (41-126); BUN/Creat Ratio 19.21 Ratio (12.00-20.00); Blood Urea Nitrogen 19.4 mg/dL (9.0-27.0); Calcium 9.7 mg/dL (8.7-10.3); Carbon Dioxide 29.6 mmol/L (20.0-27.5); Chloride 104 mmol/L (96-109); Chol/HDL Ratio 1.86 Ratio; Glucose 93 mg/dL (70-110); LDL Cholesterol,Calculated 56.1 mg/dL (0.0-131.0); Potassium 4.3 mmol/L (3.5-5.5); Sodium 143 mmol/L (135-145); Total Protein 6.2 g/dL (6.2-8.2); VLDL Calculation 15.36 mg/dL (5.00-40.00)
== END | disposition home or self-care (01) ==
LOC: LABWHC1 10:16
PROVIDERS: ATTEND Family Medicine
DX: Z00.01 Encounter for general adult medical examination with abnormal findings (principal); Z13.820 Encounter for screening for osteoporosis; Z13.220 Encounter for screening for lipoid disorders; I10 Essential (primary) hypertension; E78.5 Hyperlipidemia, unspecified; F33.1 Major depressive disorder, recurrent, moderate; K28.0 Acute gastrojejunal ulcer with hemorrhage; M48.02 Spinal stenosis, cervical region; R25.1 Tremor, unspecified; Z78.0 Asymptomatic menopausal state
CPT/HCPCS: 36415; 80053; 80061; 84443; 85025

== ENCOUNTER → 2022-06-28 | Outpatient (CLI) | payer MEDICARE, OTHER ==
--- NOTE | 2022-06-28 12:44 | BD ---
EXAMINATION TYPE: Axial Bone Density DATE OF EXAM: 06/28/2022 CLINICAL HISTORY: 71 years old Female. ICD-10 CODE: Z78.0 ASYMPTOMATIC MENOPAUSAL STATE Height: 63 Weight: 157.4 FRAX RISK QUESTIONS: Alcohol (3 or more units per day): no Family History (Parent hip fracture): no Glucocorticoids (More than 3mos): no History of Fracture in Adulthood: no Secondary Osteoporosis: 1. Type 1 Diabetes: no 2. Hyperthyroidism: no 3. Menopause before 45: no 4. Malnutrition: no 5. Chronic liver disease: no Rheumatoid Arthritis: no Current Tobacco Use: no RISK FACTORS HISTORY OF: Hip Fracture (Right/Left): no Spine Fracture: no History of Wrist Fracture: no Surgery to Spine/Hip(right/left)/Wrist (right/left): lspine When: 1999 Family History of Osteoporosis: no Active: no Diet low in dairy products/other sources of calcium: yes Postmenopausal woman: yes Take estrogen and/or progesterone medications: no Lost more than 2 inches in height since high school: yes Frequent falls: yes Poor Health: yes Hyperparathyroidism: no Adrenal Insufficiency: no MEDICATIONS: Prednisone or other steroids: no Thyroid Medications: no Osteoporosis Medications: no Additional Medications: Calcium, Multi Vit, Pt does not remember what other meds she takes and dies n ot have a list. Additional History: EXAM MEASUREMENTS: Bone mineral density about the R hip (g/cm2): 0.699 Bone mineral density about the L hip (g/cm2): 0.745 T Score values are as follows: -----R Neck: -2.1 -----L Neck: -2.2 -----R Total: -2.4 -----L Total: -2.1 Z Score values are as follows: -----R Neck: -0.4 -----L Neck: -0.6 -----R Total: -1.0 -----L Total: -0.7 Bone mineral density has: decreased -16.7 % since study of: 08/20/2017 FRAX%s: The graph provided illustrates a 21.8 % chance for a major osteoporotic fx and a 8.7% chance for the hips probability for fx in 10 years time. IMPRESSION: Osteopenia (T Score between -2.5 and -1). There is slightly increased risk of fracture and the patient may be considered for treatment. Re-Screen 2-5 years. NOTE: T-SCORE=SD OF THE YOUNG ADULT MEAN.
--- NOTE | 2022-06-28 22:17 | EEG ---
ELECTROENCEPHALOGRAM REPORT CLINICAL HISTORY: This is a 71-year-old woman with reported tremors. The video EEG is obtained to evaluate for seizure epileptiform activity. RELEVANT MEDICATION: Unknown. EEG TYPE: A routine 21-channel EEG is performed with video using the 10/20 electrode placement system. DESCRIPTION: Wakefulness is only obtained. During awake state, the posterior-dominant rhythm consists of [id number]-[id number] voltage of 9 hertz activity that is well modulated, well sustained. There is no physiological sleep architecture. There is no focal slowing. Interictal and ictal: Patient had uncontrolleable tremors that is nonrhythmic of upper and lower extremities and was responding to data entry technician during episode. The background does not correlate for seizures. The background appeared normal and at times it is semirhythmic diffuse 6 Hz. Electrographically does not correlate for seizure. An example is at 8:58AM of recording. ACTIVATION PROCEDURE: Photic stimulation did not evoke a posterior driving response. There is no abnormality during the photic stimulation. Hyperventilation is not performed. CLINICAL INTERPRETATION: This is a normal routine EEG. There is no focal slowing, epileptiform discharge, or seizure on the EEG. Tremor episodes was captured during the study that is nonepileptic in nature. A normal routine EEG does not rule out underlying epilepsy. Clinical correlation is recommended. MMODL / IJN: [id number] / MILI
== END ==
LOC: NEUROMAIN 07:51
PROVIDERS: ATTEND Family Medicine
DX: Z12.31 Encounter for screening mammogram for malignant neoplasm of breast (principal); R25.1 Tremor, unspecified; Z78.0 Asymptomatic menopausal state; Z91.048 Other nonmedicinal substance allergy status; Z91.018 Allergy to other foods; Z88.1 Allergy status to other antibiotic agents; Z91.040 Latex allergy status; Z88.2 Allergy status to sulfonamides
CPT/HCPCS: 77080; 95816

== ENCOUNTER → 2022-09-21 | Outpatient (CLI) | payer MEDICARE, OTHER ==
[2022-09-21 16:19] LABS: Chol/HDL Ratio 2.79 Ratio; LDL Cholesterol,Calculated 112.8 mg/dL (0.0-131.0); VLDL Calculation 16.08 mg/dL (5.00-40.00)
[2022-09-21 16:22] LABS: HCT 45.9 % (37.2-46.3); HGB 14.2 d/dL (12.0-15.0); MCH 27.8 pg (27.0-32.0); MCHC 30.9 d/dL (32.0-37.0); MCV 89.8 FL (80.0-97.0); Mean Platelet Volume 10.1 FL (9.5-12.2); NRBC Per 100 WBC 0 X 10*3/uL (0.00-0.01); Platelet Count 246 X 10*3/uL (140-440); RBC 5.11 X 10*6/uL (4.10-5.20)
[2022-09-21 16:44] LABS: ALT 19 U/L (8-44); AST 26 U/L (13-35); BUN/Creat Ratio 19.56 Ratio (12.00-20.00); Blood Urea Nitrogen 17.6 mg/dL (9.0-27.0); Calcium 9.6 mg/dL (8.7-10.3); Carbon Dioxide 26.5 mmol/L (21.6-31.8); Chloride 106 mmol/L (96-109); Glucose 89 mg/dL (70-110); Potassium 4.8 mmol/L (3.5-5.5); Sodium 144 mmol/L (135-145)
== END | disposition home or self-care (01) ==
LOC: LABWHC1 10:07
PROVIDERS: ATTEND Internal Medicine Cardiovascular Disease
DX: E78.2 Mixed hyperlipidemia (principal)
CPT/HCPCS: 36415; 80048; 80061; 84443; 84450; 84460; 85027

== ENCOUNTER → 2022-10-22 | Outpatient (CLI) | payer MEDICARE, OTHER ==
[2022-10-22 15:54] LABS: Chol/HDL Ratio 2.63 Ratio; LDL Cholesterol,Calculated 104.4 mg/dL (0.0-131.0)
[2022-10-22 15:55] LABS: ALT 17 U/L (8-44); AST 24 U/L (13-35); Albumin 4.2 d/dL (3.8-4.9); Alkaline Phosphatase 99 U/L (41-126); Blood Urea Nitrogen 12.5 mg/dL (9.0-27.0); Calcium 9.8 mg/dL (8.7-10.3); Carbon Dioxide 28.8 mmol/L (21.6-31.8); Chloride 108 mmol/L (96-109); Globulin 2.1 d/dL (1.6-3.3); Glucose 97 mg/dL (70-110); Potassium 4.9 mmol/L (3.5-5.5); Sodium 146 mmol/L (135-145); Total Bilirubin 0.3 mg/dL (0.3-1.2); Total Protein 6.3 d/dL (6.2-8.2)
== END | disposition home or self-care (01) ==
LOC: LABWHC1 09:39
PROVIDERS: ATTEND Family Medicine
DX: I12.9 Hypertensive chronic kidney disease with stage 1 through stage 4 chronic kidney disease, or unspecified chronic kidney disease (principal); I48.0 Paroxysmal atrial fibrillation; E78.5 Hyperlipidemia, unspecified; N18.31 Chronic kidney disease, stage 3a
CPT/HCPCS: 36415; 80053; 80061

== ENCOUNTER → 2022-11-05 | Outpatient (CLI) | payer MEDICARE, OTHER ==
[2022-11-05 11:34] LABS: HCT 45.2 % (34.0-46.0); HGB 14.8 gm/dL (11.4-16.0); MCH 28.4 pg (25.0-35.0); MCHC 32.7 g/dL (31.0-37.0); Mean Platelet Volume 7.8; Platelet Count 194 k/uL (150-450); RDW 13.2 % (11.5-15.5); WBC 5.8 k/uL (3.8-10.6)
[2022-11-05 12:00] LABS: African American GFR (CKD) 70 (>60 ml/min/1.73 sqM); Anion Gap 4 mmol/L; Blood Urea Nitrogen 11 mg/dL (7-17); Carbon Dioxide 30 mmol/L (22-30); Chloride 107 mmol/L (98-107); Non-African American GFR(CKD) 61 (>60 ml/min/1.73 sqM); Potassium 4.6 mmol/L (3.5-5.1); Sodium 141 mmol/L (137-145)
== END | disposition home or self-care (01) ==
LOC: LABPAT 10:42
PROVIDERS: ATTEND Internal Medicine Clinical Cardiac Electrophysiology
DX: Z01.812 Encounter for preprocedural laboratory examination (principal); T82.111A Breakdown (mechanical) of cardiac pulse generator (battery), initial encounter; Y82.9 Unspecified medical devices associated with adverse incidents
CPT/HCPCS: 36415; 80051; 82565; 84520; 85027

== ENCOUNTER 2022-11-06 07:54 | Day surgery (SDC) | payer MEDICARE, OTHER ==
[~2022-11-06 07:54] MED LIST: LACTATED RINGERS 1,000 ML IV SCH; SODIUM CHLORIDE 0.9% 1,000 ML IV SCH; ceFAZolin 1 GM in SODIUM CHLORIDE 0.9% IRRIG BTL 250 ML IRRIGATION PRN
[2022-11-06] MEDS ORDERED: SODIUM CHLORIDE 0.9% 1,000 ML IV ONE (08:20)
[2022-11-06 08:38] LABS: Basophils % (A) 1 %; Eosinophils # (A) 0.1 k/uL (0-0.7); Eosinophils % (A) 2 %; HCT 44.5 % (34.0-46.0); HGB 14.6 gm/dL (11.4-16.0); Lymphocytes # (A) 1.7 k/uL (1.0-4.8); Lymphocytes % (A) 30 %; MCH 28.4 pg (25.0-35.0); MCHC 32.9 g/dL (31.0-37.0); MCV 86.4 fL (80.0-100.0); Mean Platelet Volume 8.4; Monocytes # (A) 0.4 k/uL (0-1.0); Monocytes % (A) 6 %; Neutrophils # (A) 3.3 k/uL (1.3-7.7); Neutrophils % (A) 59 %; Platelet Count 192 k/uL (150-450); RBC 5.15 m/uL (3.80-5.40); RDW 13.2 % (11.5-15.5); WBC 5.7 k/uL (3.8-10.6)
[2022-11-06 08:51] VITALS: RESP 16; TEMP 98.1
[2022-11-06] MEDS ORDERED: LIDOCAINE 1% INJ 10MG/ML (20 ML MDV) ONE ×3 (09:13→09:45)
[2022-11-06] MEDS ORDERED: PROPOFOL 10 MG/ML 20 ML VIAL IV ONE (09:22)
[2022-11-06] MEDS ORDERED: fentaNYL (PF) 50 MCG/ML 2 ML AMP ONE (09:22)
[2022-11-06] MEDS ORDERED: IOPAMIDOL-250 100ML BTL IVP ONE (09:39)
[2022-11-06] MEDS ORDERED: LIDOCAINE 1% INJ 10MG/ML (30 ML VIAL-PF) SQ ONE (10:21)
--- NOTE | 2022-11-06 11:33 | P.EPPROC ---
- EP Procedure Note Electrophysiology Procedure Note: Diagnosis Symptomatic bradycardia, sick sinus syndrome Tachybradycardia syndrome with PAF and Sick Sinus Syndrome, symptomatic No triggering factors Procedure Successful Dual-chamber pacemaker implantation Left upper extremity venogram Details Patient was brought to the EP lab in a fasting state. Written informed consent was obtained prior to the procedure. Conscious sedation provided. 10 mL IV dye injected to the left arm Patent left subclavian and axillary venous system IV antibiotics administered. Local anesthesia administered. A 4 cm incision made in the pectoral area. Subfascial pocket made. Venous accesses obtained Venous sheaths placed. Leads placed in the right heart Atrial lead position the right atrial appendage. Pain is 4.4 mV, pacing impedance 627 ohms, pacing threshold 0.5 V at 0.4 ms RV lead position in the RV mid to high septum. 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
[2022-11-06] MEDS ORDERED: ACETAMINOPHEN SUSP (DYE FREE) 3,840 MG/120 ML BOTTLE PO PRN (11:35)
[2022-11-06] MEDS ORDERED: ACETAMINOPHEN IV (For NPO) 1,000 MG in EMPTY BAG 1 BAG IVPB ONE (13:00)
--- NOTE | 2022-11-06 13:44 | XR ---
EXAMINATION TYPE: XR chest 1V portable DATE OF EXAM: 11/06/2022 HISTORY: Shortness of breath. COMPARISON: 07/07/2016 TECHNIQUE: Single view of the chest is submitted. FINDINGS: Demonstrated are scattered senescent parenchymal change. There is no evidence for focal infiltrate. The heart is stable. Hilar and mediastinal structures are within normal limits. Degenerative changes are seen of the dorsal spine. IMPRESSION: 1. Chronic changes without evidence for acute pulmonary disease.
[2022-11-06 17:00] VITALS: BP 126/78; PULSE 63
[2022-11-06] MEDS ORDERED: APIXABAN 5 MG TAB PO SCH (21:00)
== END 2022-11-06 15:55 | disposition home or self-care (01) ==
LOC: CATHEP 07:54
PROVIDERS: ATTEND Internal Medicine Clinical Cardiac Electrophysiology
DX: I49.5 Sick sinus syndrome (principal); I10 Essential (primary) hypertension; E78.5 Hyperlipidemia, unspecified; G47.33 Obstructive sleep apnea (adult) (pediatric); I48.19 Other persistent atrial fibrillation; Z88.2 Allergy status to sulfonamides; Z88.5 Allergy status to narcotic agent; Z79.01 Long term (current) use of anticoagulants; Z79.899 Other long term (current) drug therapy
CPT/HCPCS: 33208; 85025; 71045; C1894; C1769 ×4; C1730; C1892; C1898; C1785; J0690; J2001; J3010; J0131; J2704; Q9966

== ENCOUNTER 2022-11-06 18:36 | Observation (INO) | payer MEDICARE, OTHER ==
--- NOTE | 2022-11-06 19:35 | ED ---
General Adult HPI - General Chief complaint: Wound/Laceration Stated complaint: pace maker padding is off Time Seen by Provider: 11/06/22 19:07 Source: patient, RN notes reviewed Mode of arrival: ambulatory Limitations: no limitations - History of Present Illness Initial comments: 72-year-old female with a past medical history significant for recent pace-maker placement and dementia presents to the emergency department with a chief complaint of post operative problem. Patient had a pace-maker placed today at this facility by Dr. Buckley. She reports that she was scratching at the bandage when it came off. She is worried it may be infected. She denies any known fevers, erythema, purulent discharge from the site. - Related Data Home Medications Medication Instructions Recorded Confirmed Cranberry Fruit Extract [Cranberry] 500 mg PO HS 10/20/15 11/06/22 Donepezil HCl [Aricept] 10 mg PO BID 03/25/18 11/06/22 Multivit-Min/Iron/Folic/Lutein 1 tab PO HS 03/16/19 11/06/22 [Centrum Silver Women Tablet] Apixaban [Eliquis] 5 mg PO BID 10/30/22 11/06/22 Calcium Carbonate [Calcium] 600 mg PO BID 10/30/22 11/06/22 Cetirizine HCl [Zyrtec] 10 mg PO DAILY 10/30/22 11/06/22 Cholecalciferol [Vitamin D3 (125 125 mcg PO DAILY 10/30/22 11/06/22 Mcg = 5000 Iu)] Dicyclomine [Bentyl] 20 mg PO BID 10/30/22 11/06/22 Escitalopram [Lexapro] 20 mg PO HS 10/30/22 11/06/22 Memantine [Namenda] 10 mg PO BID 10/30/22 11/06/22 Psyllium Husk [Fiber Capsule] 0.4 gm PO BID 10/30/22 11/06/22 Vitamin B Complex 1 cap PO DAILY 10/30/22 11/06/22 Zinc Gluconate [Zinc] 50 mg PO DAILY 10/30/22 11/06/22 clonazePAM [Clonazepam] 0.5 mg PO DAILY 10/30/22 11/06/22 Gabapentin [Neurontin] 100 mg PO BID PRN 11/06/22 11/06/22 Aysha 500 mg PO HS 11/06/22 11/06/22 Triamcinolone 0.1% Ointment 1 applic TOPICAL BID PRN 11/06/22 11/06/22 [Kenalog 0.1% Ointment] Allergies Allergy/AdvReac Type Severity Reaction Status Date / Time gold Au 198 Allergy Severe Swelling Verified 11/06/22 20:47 nickel Allergy Severe Swelling Verified 11/06/22 20:47 acetaminophen [From Percocet] Allergy Anaphylaxis Verified 11/06/22 20:47 adhesive Allergy Itching/Sor Verified 11/06/22 20:47 es apple Allergy Unknown Verified 11/06/22 20:47 avocado Allergy Unknown Verified 11/06/22 20:47 banana Allergy Unknown Verified 11/06/22 20:47 beet Allergy Unknown Verified 11/06/22 20:47 broccoli Allergy Unknown Verified 11/06/22 20:47 caffeine Allergy Anaphylaxis Verified 11/06/22 20:47 Cauliflower Allergy Unknown Verified 11/06/22 20:47 poon Allergy Unknown Verified 11/06/22 20:47 chlorhexidine Allergy Anaphylaxis Verified 11/06/22 20:47 [From Hibiclens] chlorhexidine gluconate Allergy Anaphylaxis Verified 11/06/22 20:47 [From Hibiclens] cinnamon Allergy Swelling Verified 11/06/22 20:47 of Tongue citric acid Allergy Anaphylaxis Verified 11/06/22 20:47 formaldehyde Allergy Unknown- Verified 11/06/22 20:47 positive in testing that was done gabapentin Allergy Unknown Verified 11/06/22 20:47 hazelnut Allergy Unknown Verified 11/06/22 20:47 ketamine Allergy Anaphylaxis Verified 11/06/22 20:47 kiwi Allergy Unknown Verified 11/06/22 20:47 Latex, Natural Rubber Allergy Anaphylaxis Verified 11/06/22 20:47 lemon Allergy Unknown Verified 11/06/22 20:47 washoe Allergy Unknown Verified 11/06/22 20:47 losartan Allergy Unknown Verified 11/06/22 20:47 midazolam [From Versed] Allergy Anaphylaxis Verified 11/06/22 20:47 orange juice [Herscher] Allergy Unknown Verified 11/06/22 20:47 papaya Allergy Unknown Verified 11/06/22 20:47 passion fruit Allergy Unknown Verified 11/06/22 20:47 peach Allergy Unknown Verified 11/06/22 20:47 pear Allergy Unknown Verified 11/06/22 20:47 Pepper Allergy Unknown Verified 11/06/22 20:47 plum Allergy Unknown Verified 11/06/22 20:47 potato Allergy Unknown Verified 11/06/22 20:47 povidone-iodine Allergy Anaphylaxis Verified 11/06/22 20:47 [From Betadine] raspberry Allergy Unknown Verified 11/06/22 20:47 red dye Allergy Anaphylaxis Verified 11/06/22 20:47 soap [From Betadine] Allergy Anaphylaxis Verified 11/06/22 20:47 Squash Allergy Unknown Verified 11/06/22 20:47 strawberry Allergy Unknown Verified 11/06/22 20:47 sulfabenzamide Allergy Dyspnea Verified 11/06/22 20:47 sweet potato Allergy Unknown Verified 11/06/22 20:47 tomato Allergy Unknown Verified 11/06/22 20:47 tree nut [Pecan] Allergy Unknown Verified 11/06/22 20:47 walnut Allergy Unknown Verified 11/06/22 20:47 warfarin Allergy Unknown Verified 11/06/22 20:47 wheat Allergy Rash/Hives Verified 11/06/22 20:47 warfarin sodium AdvReac Severe Nausea/Weak Verified 11/06/22 20:47 [From Coumadin] ness codeine AdvReac Hallucinati Verified 11/06/22 20:47 ons diazepam [From Valium] AdvReac "Collapsed" Verified 11/06/22 20:47 losartan potassium AdvReac Cough Verified 11/06/22 20:47 [From Cozaar] oxycodone AdvReac "Collapsed" Verified 11/06/22 20:47 metal Allergy Severe Nickel & Uncoded 11/06/22 08:41 Gold Allergy body lotions Allergy Unknown Uncoded 11/06/22 08:41 CHESTNUTS Allergy Unknown Uncoded 11/06/22 08:41 CHIPS (SEASONED) Allergy Unknown Uncoded 11/06/22 08:41 cinnamic aldehyde Allergy Sores/Rash Uncoded 11/06/22 08:41 in Mouth disperse red 17 Allergy Unknown Uncoded 11/06/22 08:41 fabric softener Allergy Unknown Uncoded 11/06/22 08:41 FLUORIDE AND CHLORIDE WATER Allergy Unknown Uncoded 11/06/22 08:41 fragnances Allergy Unknown Uncoded 11/06/22 08:41 fruit many types Allergy Itching Uncoded 11/06/22 08:41 laundry soap Allergy Unknown Uncoded 11/06/22 08:41 [id number] [id number] III Allergy Dyspnea Uncoded 11/06/22 08:41 NECTARINE Allergy Unknown Uncoded 11/06/22 08:41 PICKLED FOOD Allergy Unknown Uncoded 11/06/22 08:41 POTASSIUM CITRATE Allergy Unknown Uncoded 11/06/22 08:41 preservative in eye drops Allergy Itching & Uncoded 11/06/22 08:41 Burning STAR FRUIT Allergy Unknown Uncoded 11/06/22 08:41 TANGERINE Allergy Unknown Uncoded 11/06/22 08:41 toothpaste Allergy Unknown Uncoded 11/06/22 08:41 VINEGAR Allergy Unknown Uncoded 11/06/22 08:41 walnut Allergy Itching & Uncoded 11/06/22 08:41 Tongue Swells Review of Systems ROS Statement: Those systems with pertinent positive or pertinent negative responses have been documented in the HPI. ROS Other: All systems not noted in ROS Statement are negative. Past Medical History Past Medical History: Dementia, Fibromyalgia, Hyperlipidemia, Hypertension, Osteoarthritis (OA), Sleep Apnea/CPAP/BIPAP Additional Past Medical History / Comment(s): SEE DR BUCKLEY'S H&P. 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, DDD, loss of feeling in arms and hands, had seizure several years ago related to severe caffeine allergy History of Any Multi-Drug Resistant Organisms: ESBL Date of last positivie culture/infection: 05/14/15 MDRO Source:: Urine-ESBL Past Surgical History: Back Surgery, Breast Surgery, Cholecystectomy, Hysterectomy, Joint Replacement, Orthopedic Surgery, Pacemaker, Tonsillectomy, Tubal Ligation Additional Past Surgical History / Comment(s): kiara foot surgery, left breast biopsy, kiara knee replacement, cystocele/rectocele repair, PAIN CLINIC PROCEDURES, laminectomy 2012, lumbar fusion Feb 2015, May 12, 2015, kiara. cataract rem. Past Anesthesia/Blood Transfusion Reactions: Previous Problems w/ Anesthesia, Motion Sickness, Postoperative Nausea & Vomiting (PONV) Additional Past Anesthesia/Blood Transfusion Reaction / Comment(s): in recovery room-aspiration into lungs, DIFF WAKING Past Psychological History: Depression Smoking Status: Never smoker Past Alcohol Use History: None Reported Past Drug Use History: None Reported - Past Family History Father Family Medical History: Asthma, COPD, Coronary Artery Disease (CAD), Dementia Mother Family Medical History: Coronary Artery Disease (CAD), Dementia, Diabetes Mellitus, Hypertension Brother(s) Family Medical History: CVA/TIA, Diabetes Mellitus, Vascular Disorder Sister(s) Family Medical History: Liver Disease Daughter(s) Family Medical History: Hypertension Son(s) Family Medical History: Asthma General Exam - General Exam Comments Initial Comments: General: Alert, in no acute distress Head: atraumatic normocephalic. Eyes PERRL, EOMI intact, mucous membranes moist Respiratory: Lungs clear to auscultation bilaterally Cardiovascular: Heart rate regular rate and rhythm Abdominal: Soft without guarding or rebound Extremities: Normal inspection with full range of motion and normal capillary refill Neuroogic: alert and oriented 3, CN II-XII intact, able to ambulate with steady gait Skin: warm dry and intact with normal color, pacemaker surgical site with trace amount of dried blood on the Steri-Strips. No surrounding erythema no active bleeding or purulent discharge Limitations: no limitations Course Vital Signs 11/06/22 11/06/22 18:41 20:14 Temperature 98 F Pulse Rate 60 61 Respiratory 16 16 Rate Blood Pressure 160/100 195/96 O2 Sat by Pulse 98 97 Oximetry - Reevaluation(s) Reevaluation #1: 11/06/22 19:[address] [facility] who agrees and accepts the admission with consult to Dr. Gonzalez. patient requesting patient be started on Kefzol. Medical Decision Making - Medical Decision Making Was pt. sent in by a medical professional or institution (, PA, EQUIPMENT TECH, urgent care, hospital, or shelter...) When possible be specific @ -[No] Did you speak to anyone other than the patient for history (EMS, parent, family, police, friend...)? What history was obtained from this source @ -Patient Did you review nursing and triage notes (agree or disagree)? Why? @ -[I reviewed and agree with nursing and triage notes] Were old charts reviewed (outside hosp., previous admission, EMS record, old EKG, old radiological studies, urgent care reports/EKG's, shelter records)? Report findings @ -[No old charts were reviewed] Differential Diagnosis (chest pain, altered mental status, abdominal pain women, abdominal pain men, vaginal bleeding, weakness, fever, dyspnea, syncope, headache, dizziness, GI bleed, back pain, seizure, CVA, palpatations, mental health, musculoskeletal)? @ -[not applicable] EKG interpreted by me (3pts min.). @ -[As above] X-rays interpreted by me (1pt min.). @ -[None done] CT interpreted by me (1pt min.). @ -[None done] U/S interpreted by me (1pt. min.). @ -[None done] What testing was considered but not performed or refused? (CT, X-rays, U/S, labs)? Why? @ -[None] What meds were considered but not given or refused? Why? @ -[None] Did you discuss the management of the patient with other professionals (professionals i.e. , PA, EQUIPMENT TECH, lab, RT, psych nurse, social work manager, puller through, teacher, workers' compensation hearings officer, trimming caser)? Give summary @ -Case discussed with Dr. Gonzalez who recommends starting the patient on Kefzol. Case discussed with [facility] who agrees and accepts the patient for further observation. For IV antibiotics. Was smoking cessation discussed for >3mins.? @ -[No] Was critical care preformed (if so, how long)? @ -[No] Were there social determinants of health that impacted care today? How? (Homelessness, low income, unemployed, alcoholism, drug addiction, transportation, low edu. Level, literacy, decrease access to med. care, prison, rehab)? @ -[No] Was there de-escalation of care discussed even if they declined (Discuss DNR or withdrawal of care, Hospice)? DNR status @ -[No] What co-morbidities impacted this encounter? (DM, HTN, Smoking, COPD, CAD, Cancer, CVA, ARF, Chemo, Hep., AIDS, mental health diagnosis, sleep apnea, morbid obesity)? @ -[None] Was patient admitted / discharged? Hospital course, mention meds given and route, prescriptions, significant lab abnormalities, going to OR and other pertinent info. @ -Admission. This is a pleasant 72-year-old female who presents coming with to the emergency department with a chief complaint of postop problem. Patient had thorough history and physical exam performed on the ED. These maker site appears to be intact with mild amount of blood on the bandages. Case discussed with Dr. Gonzalez is requesting patient to be admitted to medicine with him in consult. Case discussed with [facility] who agrees and accepts the patient for observation consult to Dr. Gonzalez. Patient started on Kefzol. Case discussed with Dr. Zafar [facility] who agrees with plan of care Undiagnosed new problem with uncertain prognosis? @ -[No] Drug Therapy requiring intensive monitoring for toxicity (Heparin, Nitro, Insulin, Cardizem)? @ -[No] Were any procedures done? @ -[No] Diagnosis/symptom? @ -Post-op Problem Acute, or Chronic, or Acute on Chronic? @ -Acute Uncomplicated (without systemic symptoms) or Complicated (systemic symptoms)? @ -Uncomplicated Side effects of treatment? @ -[No] Exacerbation, Progression, or Severe Exacerbation? @ -[No] Poses a threat to life or bodily function? How? (Chest pain, [place], [place], pneumonia, PE, COPD, DKA, ARF, appy, cholecystitis, CVA, Diverticulitis, Homicidal, Suicidal, threat to staff... and all critical care pts) @ -Low likelihood - Lab Data Result diagrams: 11/06/22 19:55 11/06/22 19:55 Disposition Clinical Impression: Post-op bleeding Disposition: ADMITTED IP TO THIS [facility] Condition: Stable Is patient prescribed a controlled substance at d/c from ED?: No Time of Disposition: 19:31
[2022-11-06] MEDS ORDERED: ONDANSETRON 4 MG/2 ML VIAL IVP PRN (19:44)
[2022-11-06] MEDS ORDERED: NALOXONE 0.4 MG/ML 1 ML VIAL IV PRN (19:44)
[2022-11-06] MEDS ORDERED: SODIUM CHLORIDE 0.9% 1,000 ML IV SCH (19:45)
[2022-11-06 20:09] LABS: Basophils % (A) 0 %; Eosinophils # (A) 0.1 k/uL (0-0.7); Eosinophils % (A) 1 %; HCT 44.1 % (34.0-46.0); HGB 14.5 gm/dL (11.4-16.0); Lymphocytes # (A) 1.8 k/uL (1.0-4.8); Lymphocytes % (A) 19 %; MCH 28.5 pg (25.0-35.0); MCV 86.4 fL (80.0-100.0); Mean Platelet Volume 7.8; Monocytes # (A) 0.5 k/uL (0-1.0); Monocytes % (A) 5 %; Neutrophils # (A) 6.7 k/uL (1.3-7.7); Neutrophils % (A) 73 %; Platelet Count 190 k/uL (150-450); RDW 13.2 % (11.5-15.5); WBC 9.1 k/uL (3.8-10.6)
[2022-11-06 20:24] LABS: ALT 18 U/L (4-34); AST 30 U/L (14-36); African American GFR (CKD) 85 (>60 ml/min/1.73 sqM); Albumin 3.8 g/dL (3.5-5.0); Alkaline Phosphatase 97 U/L (38-126); Anion Gap 6 mmol/L; Blood Urea Nitrogen 13 mg/dL (7-17); Calcium 9.1 mg/dL (8.4-10.2); Carbon Dioxide 27 mmol/L (22-30); Chloride 107 mmol/L (98-107); Glucose 89 mg/dL (74-99); Non-African American GFR(CKD) 74 (>60 ml/min/1.73 sqM); Sodium 140 mmol/L (137-145); Total Bilirubin 0.4 mg/dL (0.2-1.3); Total Protein 6.5 g/dL (6.3-8.2)
[2022-11-06] MEDS ORDERED: amLODIPine 5 MG TAB PO STA (20:29)
[2022-11-06] MEDS ORDERED: ESCITALOPRAM 20 MG TAB PO SCH (21:45)
[2022-11-06] MEDS: DONEPEZIL 10 MG TAB PO SCH (22:10)
[2022-11-06] MEDS: DICYCLOMINE 20 MG TAB PO SCH (22:10)
[2022-11-06] MEDS: MEMANTINE 10 MG TAB PO SCH (22:10)
[2022-11-07 07:51] VITALS: BP 165/87; PULSE 69; RESP 16; TEMP 98.2
[2022-11-07] MEDS ORDERED: TRIAMCINOLONE ACET 0.1% OINTMENT 15 GM TUBE TOPICAL PRN (08:55)
[2022-11-07] MEDS ORDERED: GABAPENTIN 100 MG CAP PO PRN (08:55)
[2022-11-07] MEDS ORDERED: CHOLECALCIFEROL 125 MCG (5000 IU) TABLET PO SCH (09:00)
[2022-11-07] MEDS ORDERED: ZINC SULFATE 220 MG CAP PO SCH (09:00)
[2022-11-07] MEDS ORDERED: PSYLLIUM HUSK 100% 6 GM PACKET PO SCH (09:00)
[2022-11-07] MEDS ORDERED: APIXABAN 5 MG TAB PO SCH (09:00)
[2022-11-07] MEDS ORDERED: CALCIUM CARBONATE 500 MG CHEWABLE PO SCH (09:00)
[2022-11-07] MEDS ORDERED: NON FORMULARY DRUG (Vitamin B Complex [Vitamin B Complex] 1 EACH Capsule) PO SCH (09:00)
[2022-11-07] MEDS ORDERED: LORATADINE 10 MG TAB PO SCH (09:00)
[2022-11-07] MEDS ORDERED: clonazePAM 0.5 MG TAB PO SCH (09:00)
[2022-11-07] MEDS: MEMANTINE 10 MG TAB PO SCH (09:59)
[2022-11-07] MEDS: DONEPEZIL 10 MG TAB PO SCH (09:59)
[2022-11-07] MEDS: DICYCLOMINE 20 MG TAB PO SCH (09:59)
--- NOTE | 2022-11-07 10:35 | P.CRDCN ---
History of Present Illness Consult date: 11/07/22 Reason for Consult (text): Pacemaker site problem History of present illness: History of present illness: This is a 72 year old female with past medical history of paroxysmal atrial fibrillation, history of sick sinus syndrome, hypertension, hyperlipidemia, dementia. On 11/06, patient underwent dual-chamber pacemaker implantation. Patient had no postprocedure complications and was discharged home. Patient presented to the emergency center with complaints of scratching at the bandage and it came off. This bandage has been replaced. Patient has been instructed to not touch the bandage. No other concerns from the patient. Chest x-ray: Chronic changes without acute process CBC and CMP normal Home cardiac medications: Eliquis 5 mg twice daily Review Of Systems: At the time of my evaluation: Constitutional: No fever, no chills. No weakness, fatigue or lethargy. EENT: No headache. No dizziness. Lungs: No shortness of breath, cough, no sputum production. No wheezing. Cardiovascular: No chest pain, no lower extremity edema. No palpitations. No paroxysmal nocturnal dyspnea. No orthopnea. No lightheadedness or dizziness. No syncopal episodes. Abdominal: No abdominal pain. No nausea, vomiting. No diarrhea. No consti pation. No bloody or tarry stools. Genitourinary: No dysuria.. No urinary retention. Musculoskeletal: No myalgias. No muscle weakness, no frequent falls. No back pain. No neck pain. Integumentary: No wounds. No rash. No unusual bruising. Neurologic: No aphasia. No facial droop. No change in mentation. No head injury. No headache. Physical examination: Gen: This is a 72-year-old female. She is resting in bed appears to be comfortable and in no acute distress VS: reviewed 165/87, heart rate in 60s and 70s HEENT: Head is atraumatic, normocephalic. Pupils equal, round. Sclerae is anicteric. LUNGS: Clear to auscultation. No wheezes or rhonchi. No intercostal retractions. HEART: Regular rate and rhythm. No murmur. Large dressing covering pacemaker site in the left upper anterior chest wall. No bleeding. EXTREMITIES: No pedal edema. No calf tenderness. NEUROLOGICAL: Patient is awake, alert and oriented x3. Assessment: Scratching at pacemaker site Sick sinus syndrome status post dual-chamber pacemaker implantation 11/06 Paroxysmal atrial fibrillation Hypertension Hyperlipidemia Dementia Plan: Patient has been instructed to obtain boxing gloves to wear these when she is sleeping so that she does not scratch the pacemaker implantation site. Continue home cardiac medications, no changes Patient is cleared from cardiology for discharge home and may follow-up in the office with Dr. Mccabe in one week Thank you kindly for this consultation. Nurse practitioner note has been reviewed, I agree with documented findings and plan of care. Patient was seen and examined. Past Medical History Past Medical History: Dementia, Fibromyalgia, Hyperlipidemia, Hypertension, Osteoarthritis (OA), Sleep Apnea/CPAP/BIPAP Additional Past Medical History / Comment(s): SEE DR BUCKLEY'S H&P. 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, DDD, loss of feeling in arms and hands, had seizure several years ago related to severe caffeine allergy History of Any Multi-Drug Resistant Organisms: ESBL Date of last positivie culture/infection: 05/14/15 MDRO Source:: Urine-ESBL Past Surgical History: Back Surgery, Breast Surgery, Cholecystectomy, Hysterectomy, Joint Replacement, Orthopedic Surgery, Pacemaker, Tonsillectomy, Tubal Ligation Additional Past Surgical History / Comment(s): kiara foot surgery, left breast biopsy, kiara knee replacement, cystocele/rectocele repair, PAIN CLINIC PROCEDURES, laminectomy 2012, lumbar fusion Feb 2015, May 12, 2015, kiara. cataract rem. Past Anesthesia/Blood Transfusion Reactions: Previous Problems w/ Anesthesia, Motion Sickness, Postoperative Nausea & Vomiting (PONV) Additional Past Anesthesia/Blood Transfusion Reaction / Comment(s): in recovery room-aspiration into lungs, DIFF WAKING Type of Cardiac Device: Permanent Pacemaker Device Placement Date:: 11/06/22 Past Psychological History: Depression Smoking Status: Never smoker Past Alcohol Use History: None Reported Past Drug Use History: None Reported - Past Family History Father Family Medical History: Asthma, COPD, Coronary Artery Disease (CAD), Dementia Mother Family Medical History: Coronary Artery Disease (CAD), Dementia, Diabetes Mellitus, Hypertension Brother(s) Family Medical History: CVA/TIA, Diabetes Mellitus, Vascular Disorder Sister(s) Family Medical History: Liver Disease Daughter(s) Family Medical History: Hypertension Son(s) Family Medical History: Asthma Medications and Allergies Home Medications Medication Instructions Recorded Confirmed Type Cranberry Fruit Extract [Cranberry] 500 mg PO HS 10/20/15 11/06/22 History Donepezil HCl [Aricept] 10 mg PO BID 03/25/18 11/06/22 History Multivit-Min/Iron/Folic/Lutein 1 tab PO HS 03/16/19 11/06/22 History [Centrum Silver Women Tablet] Apixaban [Eliquis] 5 mg PO BID 10/30/22 11/06/22 History Calcium Carbonate [Calcium] 600 mg PO BID 10/30/22 11/06/22 History Cetirizine HCl [Zyrtec] 10 mg PO DAILY 10/30/22 11/06/22 History Cholecalciferol [Vitamin D3 (125 125 mcg PO DAILY 10/30/22 11/06/22 History Mcg = 5000 Iu)] Dicyclomine [Bentyl] 20 mg PO BID 10/30/22 11/06/22 History Escitalopram [Lexapro] 20 mg PO HS 10/30/22 11/06/22 History Memantine [Namenda] 10 mg PO BID 10/30/22 11/06/22 History Psyllium Husk [Fiber Capsule] 0.4 gm PO BID 10/30/22 11/06/22 History Vitamin B Complex 1 cap PO DAILY 10/30/22 11/06/22 History Zinc Gluconate [Zinc] 50 mg PO DAILY 10/30/22 11/06/22 History clonazePAM 0.5 mg PO DAILY 10/30/22 11/06/22 History Gabapentin [Neurontin] 100 mg PO BID PRN 11/06/22 11/06/22 History Aysha 500 mg PO HS 11/06/22 11/06/22 History Triamcinolone 0.1% Ointment 1 applic TOPICAL BID PRN 11/06/22 11/06/22 History [Kenalog 0.1% Ointment] Allergies Allergy/AdvReac Type Severity Reaction Status Date / Time gold Au 198 Allergy Severe Swelling Verified 11/06/22 20:47 nickel Allergy Severe Swelling Verified 11/06/22 20:47 acetaminophen [From Percocet] Allergy Anaphylaxis Verified 11/06/22 20:47 adhesive Allergy Itching/Sor Verified 11/06/22 20:47 es apple Allergy Unknown Verified 11/06/22 20:47 avocado Allergy Unknown Verified 11/06/22 20:47 banana Allergy Unknown Verified 11/06/22 20:47 beet Allergy Unknown Verified 11/06/22 20:47 broccoli Allergy Unknown Verified 11/06/22 20:47 caffeine Allergy Anaphylaxis Verified 11/06/22 20:47 Cauliflower Allergy Unknown Verified 11/06/22 20:47 poon Allergy Unknown Verified 11/06/22 20:47 chlorhexidine Allergy Anaphylaxis Verified 11/06/22 20:47 [From Hibiclens] chlorhexidine gluconate Allergy Anaphylaxis Verified 11/06/22 20:47 [From Hibiclens] cinnamon Allergy Swelling Verified 11/06/22 20:47 of Tongue citric acid Allergy Anaphylaxis Verified 11/06/22 20:47 formaldehyde Allergy Unknown- Verified 11/06/22 20:47 positive in testing that was done gabapentin Allergy Unknown Verified 11/06/22 20:47 hazelnut Allergy Unknown Verified 11/06/22 20:47 ketamine Allergy Anaphylaxis Verified 11/06/22 20:47 kiwi Allergy Unknown Verified 11/06/22 20:47 Latex, Natural Rubber Allergy Anaphylaxis Verified 11/06/22 20:47 lemon Allergy Unknown Verified 11/06/22 20:47 [place] Allergy Unknown Verified 11/06/22 20:47 losartan Allergy Unknown Verified 11/06/22 20:47 midazolam [From Versed] Allergy Anaphylaxis Verified 11/06/22 20:47 orange juice [Arroyo] Allergy Unknown Verified 11/06/22 20:47 papaya Allergy Unknown Verified 11/06/22 20:47 passion fruit Allergy Unknown Verified 11/06/22 20:47 peach Allergy Unknown Verified 11/06/22 20:47 pear Allergy Unknown Verified 11/06/22 20:47 Pepper Allergy Unknown Verified 11/06/22 20:47 plum Allergy Unknown Verified 11/06/22 20:47 potato Allergy Unknown Verified 11/06/22 20:47 povidone-iodine Allergy Anaphylaxis Verified 11/06/22 20:47 [From Betadine] raspberry Allergy Unknown Verified 11/06/22 20:47 red dye Allergy Anaphylaxis Verified 11/06/22 20:47 soap [From Betadine] Allergy Anaphylaxis Verified 11/06/22 20:47 Squash Allergy Unknown Verified 11/06/22 20:47 strawberry Allergy Unknown Verified 11/06/22 20:47 sulfabenzamide Allergy Dyspnea Verified 11/06/22 20:47 sweet potato Allergy Unknown Verified 11/06/22 20:47 tomato Allergy Unknown Verified 11/06/22 20:47 tree nut [Pecan] Allergy Unknown Verified 11/06/22 20:47 walnut Allergy Unknown Verified 11/06/22 20:47 warfarin Allergy Unknown Verified 11/06/22 20:47 wheat Allergy Rash/Hives Verified 11/06/22 20:47 warfarin sodium AdvReac Severe Nausea/Weak Verified 11/06/22 20:47 [From Coumadin] ness codeine AdvReac Hallucinati Verified 11/06/22 20:47 ons diazepam [From Valium] AdvReac "Collapsed" Verified 11/06/22 20:47 losartan potassium AdvReac Cough Verified 11/06/22 20:47 [From Cozaar] oxycodone AdvReac "Collapsed" Verified 11/06/22 20:47 metal Allergy Severe Nickel & Uncoded 11/06/22 08:41 Gold Allergy body lotions Allergy Unknown Uncoded 11/06/22 08:41 CHESTNUTS Allergy Unknown Uncoded 11/06/22 08:41 CHIPS (SEASONED) Allergy Unknown Uncoded 11/06/22 08:41 cinnamic aldehyde Allergy Sores/Rash Uncoded 11/06/22 08:41 in Mouth disperse red 17 Allergy Unknown Uncoded 11/06/22 08:41 fabric softener Allergy Unknown Uncoded 11/06/22 08:41 FLUORIDE AND CHLORIDE WATER Allergy Unknown Uncoded 11/06/22 08:41 fragnances Allergy Unknown Uncoded 11/06/22 08:41 fruit many types Allergy Itching Uncoded 11/06/22 08:41 laundry soap Allergy Unknown Uncoded 11/06/22 08:41 [id number] MIX III Allergy Dyspnea Uncoded 11/06/22 08:41 NECTARINE Allergy Unknown Uncoded 11/06/22 08:41 PICKLED FOOD Allergy Unknown Uncoded 11/06/22 08:41 POTASSIUM CITRATE Allergy Unknown Uncoded 11/06/22 08:41 preservative in eye drops Allergy Itching & Uncoded 11/06/22 08:41 Burning STAR FRUIT Allergy Unknown Uncoded 11/06/22 08:41 TANGERINE Allergy Unknown Uncoded 11/06/22 08:41 toothpaste Allergy Unknown Uncoded 11/06/22 08:41 VINEGAR Allergy Unknown Uncoded 11/06/22 08:41 walnut Allergy Itching & Uncoded 11/06/22 08:41 Tongue Swells Physical Exam Vitals: Vital Signs Temp Pulse Pulse Resp BP BP Pulse Ox 11/07/22 07:00 98.2 F 69 16 165/87 95 11/07/22 02:00 98 F 73 14 127/65 97 11/06/22 21:25 98.4 F 65 13 135/73 96 11/06/22 20:14 61 16 195/96 97 11/06/22 18:41 98 F 60 16 160/100 98 Intake and Output 11/06/22 11/07/22 11/07/22 22:59 06:59 14:59 Other: # Voids 2 3 Weight 72.575 kg Results 11/06/22 19:55 11/06/22 19:55 Cardiac Enzymes 11/06/22 Range/Units 19:55 AST 30 (14-36) U/L CBC 11/06/22 Range/Units 19:55 WBC 9.1 (3.8-10.6) k/uL RBC 5.10 (3.80-5.40) m/uL Hgb 14.5 (11.4-16.0) gm/dL Hct 44.1 (34.0-46.0) % Plt Count 190 (150-450) k/uL Comprehensive Metabolic Panel 11/06/22 Range/Units 19:55 Sodium 140 (137-145) mmol/L Potassium 4.0 (3.5-5.1) mmol/L Chloride 107 (98-107) mmol/L Carbon Dioxide 27 (22-30) mmol/L BUN 13 (7-17) mg/dL Creatinine 0.80 (0.52-1.04) mg/dL Glucose 89 (74-99) mg/dL Calcium 9.1 (8.4-10.2) mg/dL AST 30 (14-36) U/L ALT 18 (4-34) U/L Alkaline Phosphatase 97 (38-126) U/L Total Protein 6.5 (6.3-8.2) g/dL Albumin 3.8 (3.5-5.0) g/dL Current Medications Generic Name Dose Route Start Last Admin Trade Name Freq PRN Reason Stop Dose Admin Dicyclomine HCl 20 mg 11/06/22 21:45 11/06/22 22:10 Dicyclomine 20 Mg Tab PO 20 mg BID FILIBERTO Administration Donepezil HCl 10 mg 11/06/22 21:45 11/06/22 22:10 Donepezil 10 Mg Tab PO 10 mg BID FILIBERTO Administration Escitalopram Oxalate 20 mg 11/06/22 21:45 11/06/22 22:10 Escitalopram 20 Mg Tab PO 20 mg HS FILIBERTO Administration Cefazolin Sodium 2 gm/ Sodium 50 mls @ 100 mls/hr 11/06/22 20:00 11/07/22 01:28 Chloride IVPB 100 mls/hr Q6H FILIBERTO Administration Protocol Sodium Chloride 1,000 mls @ 20 mls/hr 11/06/22 19:45 11/06/22 20:09 Saline 0.9% IV 20 mls/hr .Q24H FILIBERTO Administration Memantine 10 mg 11/06/22 21:45 11/06/22 22:10 Memantine 10 Mg Tab PO 10 mg BID FILIBERTO Administration Naloxone HCl 0.2 mg 11/06/22 19:44 Naloxone 0.4 Mg/Ml 1 Ml Vial IV Q2M PRN Opioid Reversal Ondansetron HCl 4 mg 11/06/22 19:44 Ondansetron 4 Mg/2 Ml Vial IVP Q8HR PRN Nausea And Vomiting Intake and Output 11/06/22 11/07/22 11/07/22 22:59 06:59 14:59 Other: # Voids 2 3 Weight 72.575 kg 11/06/22 19:55 11/06/22 19:55
--- NOTE | 2022-11-07 16:24 | P.HPIM ---
History of Present Illness H&P Date: 11/07/22 This is a pleasant 72-year-old female who presented to the emergency department status post pacemaker placement with reports of a postoperative problem. Patient reports the staff placed regular tape over her dressing of her newly placed pacemaker and patient has severe ALLERGIES to regular tape requiring paper tape. Patient came back because she was concerned it may be infected. Patient had 2 tiny nonraised papular lesions near her armpit where the tape was with no drainage noted. Patient was seen and evaluated by cardiology and the tape was changed to paper and has been cleared. Patient was admitted under observation for this evaluation. Patient was given a few more doses of cefazo katharine while hospitalized. Patient follows with Dr. Tejeda in the outpatient setting with a past medical history of paroxysmal atrial fibrillation, sick sinus syndrome, hypertension, hyperlipidemia, and dementia. Patient was admitted outpatient under Dr. Mckeon yesterday and is status post dual-chamber pacemaker implantation. Review Of Systems: Constitutional: No fever, no chills, no night sweats. No weight change. No weakness, fatigue or lethargy. No daytime sleepiness. EENT: No headache. No blurred vision or double vision, no loss of vision. No loss of Hearing, no ringing in the ears, no dizziness. No nasal drainage or congestion. No epistaxis. No sore throat. Lungs: No shortness of breath, cough, no sputum production. No wheezing. Cardiovascular: No chest pain, no lower extremity edema. No palpitations. No paroxysmal nocturnal dyspnea. No orthopnea. No lightheadedness or dizziness. No syncopal episodes. Reports some irritation around the pacemaker where the tape was placed Abdominal: No abdominal pain. No nausea, vomiting. No diarrhea. No constipation. No bloody or tarry stools.. No loss of appetite. Genitourinary: No dysuria, increased frequency, urgency. No urinary retention. Musculoskeletal: No myalgias. No muscle weakness, no gait dysfunction, no vitor quent falls. No back pain. No neck pain. Integumentary: No wounds, no lesions. No rash or pruritus. No unusual bruising. No change in hair or nails. Neurologic: No aphasia. No facial droop. No change in mentation. No head injury. No headache. No paralysis. No paresthesia. Psychiatric: No depression. No anxiety. No mood swings. Endocrine: No abnormal blood sugars. No weight change. No excessive sweating or thirst. No cold intolerance. PHYSICAL EXAMINATION: GENERAL: The patient is alert and oriented x4, Well developed, well nourished. HEENT: Pupils are round and equally reacting to light. EOMI. no scleral icterus. No conjunctival pallor. Normocephalic, atraumatic. No pharyngeal erythema. No thyromegaly. CARDIOVASCULAR: S1 and S2 muffled PULMONARY: diminished breath sounds bilaterally with no wheezing or rhonchi noted. ABDOMEN: soft. Nontender on exam. obese. non-distended, normoactive bowel sounds. No palpable organomegaly. MUSCULOSKELETAL: No joint swelling or deformity. EXTREMITIES: No cyanosis, clubbing, or pedal edema. NEUROLOGICAL: Gross neurological examination did not reveal any focal deficits. Diffuse weakness SKIN: No rashes. Assessment: Irritation around the pacemaker site that was just placed yesterday, concerns for mild ALLERGIC reaction from the bandage. Patient reports ALLERGIC to adhesives and regular tape was applied Sick sinus syndrome, status post Dual-chamber pacemaker implantation on 11/06/2022 History of paroxysmal atrial fibrillation Hypertension history Hyperlipidemia history Dementia History of fibromyalgia Osteoarthritis Sleep apnea History of depression GI prophylaxis DVT prophylaxis Full code Plan: Patient was seen and evaluated by cardiology and the area around the pacemaker is not infected and there were a few small nonraised lesions near the armpit where there was tape which has been removed and patient reports no further issues Cardiology evaluated the patient and cleared the patient for discharge susan mmending continued outpatient follow-up as scheduled status post pacemaker placement Home medications reviewed and resumed Patient will be discharged today. The impression and plan of care has been dictated by Renata Tejeda, nurse practitioner as directed. Dr. Umer MD I have performed a history and examination and MDM of this patient, discussed the same with the dictator, and agree with the dictator's assessment and plan as written ,documented as a scribe. Based on total visit time, I have performed more than 50% of the visit. Any additional findings or plans will be noted. Past Medical History Past Medical History: Dementia, Fibromyalgia, Hyperlipidemia, Hypertension, Osteoarthritis (OA), Sleep Apnea/CPAP/BIPAP Additional Past Medical History / Comment(s): SEE DR MCKEON'S H&P. 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, DDD, loss of feeling in arms and hands, had seizure several years ago related to severe caffeine allergy History of Any Multi-Drug Resistant Organisms: ESBL Date of last positivie culture/infection: 05/14/15 MDRO Source:: Urine-ESBL Past Surgical History: Back Surgery, Breast Surgery, Cholecystectomy, Hysterectomy, Joint Replacement, Orthopedic Surgery, Pacemaker, Tonsillectomy, Tubal Ligation Additional Past Surgical History / Comment(s): kiara foot surgery, left breast biopsy, kiara knee replacement, cystocele/rectocele repair, PAIN CLINIC PROCED URES, laminectomy 2012, lumbar fusion Feb 2015, May 12, 2015, kiara. cataract rem. Past Anesthesia/Blood Transfusion Reactions: Previous Problems w/ Anesthesia, Motion Sickness, Postoperative Nausea & Vomiting (PONV) Additional Past Anesthesia/Blood Transfusion Reaction / Comment(s): in recovery room-aspiration into lungs, DIFF WAKING Type of Cardiac Device: Permanent Pacemaker Device Placement Date:: 11/06/22 Past Psychological History: Depression Smoking Status: Never smoker Past Alcohol Use History: None Reported Past Drug Use History: None Reported - Past Family History Father Family Medical History: Asthma, COPD, Coronary Artery Disease (CAD), Dementia Mother Family Medical History: Coronary Artery Disease (CAD), Dementia, Diabetes Mellitus, Hypertension Brother(s) Family Medical History: CVA/TIA, Diabetes Mellitus, Vascular Disorder Sister(s) Family Medical History: Liver Disease Daughter(s) Family Medical History: Hypertension Son(s) Family Medical History: Asthma Medications and Allergies Home Medications Medication Instructions Recorded Confirmed Type Cranberry Fruit Extract [Cranberry] 500 mg PO HS 10/20/15 11/06/22 History Donepezil HCl [Aricept] 10 mg PO BID 03/25/18 11/06/22 History Multivit-Min/Iron/Folic/Lutein 1 tab PO HS 03/16/19 11/06/22 History [Centrum Silver Women Tablet] Apixaban [Eliquis] 5 mg PO BID 10/30/22 11/06/22 History Calcium Carbonate [Calcium] 600 mg PO BID 10/30/22 11/06/22 History Cetirizine HCl [Zyrtec] 10 mg PO DAILY 10/30/22 11/06/22 History Cholecalciferol [Vitamin D3 (125 125 mcg PO DAILY 10/30/22 11/06/22 History Mcg = 5000 Iu)] Dicyclomine [Bentyl] 20 mg PO BID 10/30/22 11/06/22 History Escitalopram [Lexapro] 20 mg PO HS 10/30/22 11/06/22 History Memantine [Namenda] 10 mg PO BID 10/30/22 11/06/22 History Psyllium Husk [Fiber Capsule] 0.4 gm PO BID 10/30/22 11/06/22 History Vitamin B Complex 1 cap PO DAILY 10/30/22 11/06/22 History Zinc Gluconate [Zinc] 50 mg PO DAILY 10/30/22 11/06/22 History clonazePAM 0.5 mg PO DAILY 10/30/22 11/06/22 History Gabapentin [Neurontin] 100 mg PO BID PRN 11/06/22 11/06/22 History Aysha 500 mg PO HS 11/06/22 11/06/22 History Triamcinolone 0.1% Ointment 1 applic TOPICAL BID PRN 11/06/22 11/06/22 History [Kenalog 0.1% Ointment] Allergies Allergy/AdvReac Type Severity Reaction Status Date / Time gold Au 198 Allergy Severe Swelling Verified 11/06/22 20:47 nickel Allergy Severe Swelling Verified 11/06/22 20:47 acetaminophen [From Percocet] Allergy Anaphylaxis Verified 11/06/22 20:47 adhesive Allergy Itching/Sor Verified 11/06/22 20:47 es apple Allergy Unknown Verified 11/06/22 20:47 avocado Allergy Unknown Verified 11/06/22 20:47 banana Allergy Unknown Verified 11/06/22 20:47 beet Allergy Unknown Verified 11/06/22 20:47 broccoli Allergy Unknown Verified 11/06/22 20:47 caffeine Allergy Anaphylaxis Verified 11/06/22 20:47 Cauliflower Allergy Unknown Verified 11/06/22 20:47 poon Allergy Unknown Verified 11/06/22 20:47 chlorhexidine Allergy Anaphylaxis Verified 11/06/22 20:47 [From Hibiclens] chlorhexidine gluconate Allergy Anaphylaxis Verified 11/06/22 20:47 [From Hibiclens] cinnamon Allergy Swelling Verified 11/06/22 20:47 of Tongue citric acid Allergy Anaphylaxis Verified 11/06/22 20:47 formaldehyde Allergy Unknown- Verified 11/06/22 20:47 positive in testing that was done gabapentin Allergy Unknown Verified 11/06/22 20:47 hazelnut Allergy Unknown Verified 11/06/22 20:47 ketamine Allergy Anaphylaxis Verified 11/06/22 20:47 kiwi Allergy Unknown Verified 11/06/22 20:47 Latex, Natural Rubber Allergy Anaphylaxis Verified 11/06/22 20:47 lemon Allergy Unknown Verified 11/06/22 20:47 [place] Allergy Unknown Verified 11/06/22 20:47 losartan Allergy Unknown Verified 11/06/22 20:47 midazolam [From Versed] Allergy Anaphylaxis Verified 11/06/22 20:47 orange juice [[place]] Allergy Unknown Verified 11/06/22 20:47 papaya Allergy Unknown Verified 11/06/22 20:47 passion fruit Allergy Unknown Verified 11/06/22 20:47 peach Allergy Unknown Verified 11/06/22 20:47 pear Allergy Unknown Verified 11/06/22 20:47 Pepper Allergy Unknown Verified 11/06/22 20:47 plum Allergy Unknown Verified 11/06/22 20:47 potato Allergy Unknown Verified 11/06/22 20:47 povidone-iodine Allergy Anaphylaxis Verified 11/06/22 20:47 [From Betadine] raspberry Allergy Unknown Verified 11/06/22 20:47 red dye Allergy Anaphylaxis Verified 11/06/22 20:47 soap [From Betadine] Allergy Anaphylaxis Verified 11/06/22 20:47 Squash Allergy Unknown Verified 11/06/22 20:47 strawberry Allergy Unknown Verified 11/06/22 20:47 sulfabenzamide Allergy Dyspnea Verified 11/06/22 20:47 sweet potato Allergy Unknown Verified 11/06/22 20:47 tomato Allergy Unknown Verified 11/06/22 20:47 tree nut [Pecan] Allergy Unknown Verified 11/06/22 20:47 walnut Allergy Unknown Verified 11/06/22 20:47 warfarin Allergy Unknown Verified 11/06/22 20:47 wheat Allergy Rash/Hives Verified 11/06/22 20:47 warfarin sodium AdvReac Severe Nausea/Weak Verified 11/06/22 20:47 [From Coumadin] ness codeine AdvReac Hallucinati Verified 11/06/22 20:47 ons diazepam [From Valium] AdvReac "Collapsed" Verified 11/06/22 20:47 losartan potassium AdvReac Cough Verified 11/06/22 20:47 [From Cozaar] oxycodone AdvReac "Collapsed" Verified 11/06/22 20:47 metal Allergy Severe Nickel & Uncoded 11/06/22 08:41 Gold Allergy body lotions Allergy Unknown Uncoded 11/06/22 08:41 CHESTNUTS Allergy Unknown Uncoded 11/06/22 08:41 CHIPS (SEASONED) Allergy Unknown Uncoded 11/06/22 08:41 cinnamic aldehyde Allergy Sores/Rash Uncoded 11/06/22 08:41 in Mouth disperse red 17 Allergy Unknown Uncoded 11/06/22 08:41 fabric softener Allergy Unknown Uncoded 11/06/22 08:41 FLUORIDE AND CHLORIDE WATER Allergy Unknown Uncoded 11/06/22 08:41 fragnances Allergy Unknown Uncoded 11/06/22 08:41 fruit many types Allergy Itching Uncoded 11/06/22 08:41 laundry soap Allergy Unknown Uncoded 11/06/22 08:41 [id number] [id number] III Allergy Dyspnea Uncoded 11/06/22 08:41 NECTARINE Allergy Unknown Uncoded 11/06/22 08:41 PICKLED FOOD Allergy Unknown Uncoded 11/06/22 08:41 POTASSIUM CITRATE Allergy Unknown Uncoded 11/06/22 08:41 preservative in eye drops Allergy Itching & Uncoded 11/06/22 08:41 Burning STAR FRUIT Allergy Unknown Uncoded 11/06/22 08:41 TANGERINE Allergy Unknown Uncoded 11/06/22 08:41 toothpaste Allergy Unknown Uncoded 11/06/22 08:41 VINEGAR Allergy Unknown Uncoded 11/06/22 08:41 walnut Allergy Itching & Uncoded 11/06/22 08:41 Tongue Swells Physical Exam Vitals: Vital Signs Temp Pulse Pulse Resp BP BP Pulse Ox 11/07/22 07:00 98.2 F 69 16 165/87 95 11/07/22 02:00 98 F 73 14 127/65 97 11/06/22 21:25 98.4 F 65 13 135/73 96 11/06/22 20:14 61 16 195/96 97 11/06/22 18:41 98 F 60 16 160/100 98 Intake and Output 11/06/22 11/07/22 11/07/22 22:59 06:59 14:59 Other: # Voids 2 3 Weight 72.575 kg Results CBC & Chem 7: 11/06/22 19:55 11/06/22 19:55
[2022-11-07] MEDS ORDERED: GINGER 500 MG PO SCH (21:00)
[2022-11-07] MEDS ORDERED: MULTIVITAMINS, THERA 1 EACH TAB PO SCH (21:00)
[2022-11-07] MEDS ORDERED: NON FORMULARY DRUG (Cranberry Fruit Extract [Cranberry] 500 MG Tablet) PO SCH (21:00)
--- NOTE | 2022-11-10 20:07 | P.DS ---
Providers Date of admission: 11/06/22 19:28 Expected date of discharge: 11/07/22 Attending physician: Georgia Brannon Consults: 11/06/22 19:44 Consult Physician Routine Consulting Provider: David Mckeon Consult Reason/Comments: Pace-maker site problem Do you want consulting provider notified?: Yes Primary care physician: Guero Tejeda Hospital Course: Final diagnosis Irritation around the pacemaker site that was just placed yesterday, concerns for mild ALLERGIC reaction from the bandage. Patient reports ALLERGIC to adhesives and regular tape was applied Sick sinus syndrome, status post Dual-chamber pacemaker implantation on 11/06/2022 History of paroxysmal atrial fibrillation Hypertension history Hyperlipidemia history Dementia History of fibromyalgia Osteoarthritis Sleep apnea History of depression GI prophylaxis DVT prophylaxis Full code Discharge disposition Patient is being discharged in a stable condition with guarded prognosis to home. Patient will follow-up with Dr. Tejeda in the outpatient setting upon discharge. Patient is to continue with current medications and outpatient follow-up with cardiology as scheduled. Total time taken is greater than 35 minutes. Hospital course This is a 72-year-old female who was recently admitted with concerns of possible infection around the pacemaker site. Patient was just discharged earlier and of note the nursing staff used regular tape around the site and patient started developing irritation and removed some of the bandage and was instructed not to and was concerned about getting an infection. Patient was seen and evaluated by cardiology and tape was adjusted to paper tape and patient has been cleared by cardiology. Patient did not have any signs of infection, no white count, afebrile and the skin was clear around the site. Currently no reports of chest pain, shortness of breath, or palpitations. Patient is afebrile. No reports of nausea or vomiting and patient is tolerating diet. Patient will be discharged home today. Physical exam: Gen: This is a 72-year-old female who is awake, alert and oriented 2-3, baseline, well-developed, well-nourished HEENT: Head is atraumatic, normocephalic. Pupils equal, round. Sclerae is anicteric. NECK: Supple. No JVD. No lymphadenopathy. No thyromegaly. LUNGS: Clear to auscultation. No wheezes or rhonchi. No intercostal retractions. HEART: Regular rate and rhythm. No murmur. Chest wall free of irritation or infection around the pacemaker site on the left chest wall. ABDOMEN: Soft. Bowel sounds are present. No masses. No tenderness. EXTREMITIES: No pedal edema. No calf tenderness. NEUROLOGICAL: Patient is awake, alert and oriented x3. Cranial nerves 2 through 12 are grossly intact. Please refer to medication reconciliation sheet for a list of medications. The impression and plan of care has been dictated by Renata Tejeda, Nurse Practitioner as directed. Dr. Umre MD I have performed a history and examination and MDM of this patient, discussed the same with the dictator, and agree with the dictator's assessment and plan as written ,documented as a scribe. Based on total visit time, I have performed more than 50% of the visit. Patient Condition at Discharge: Stable Plan - Discharge Summary New Discharge Prescriptions: Continue Cranberry Fruit Extract [Cranberry] 500 mg PO HS Donepezil HCl [Aricept] 10 mg PO BID Multivit-Min/Iron/Folic/Lutein [Centrum Silver Women Tablet] 1 tab PO HS Escitalopram [Lexapro] 20 mg PO HS clonazePAM 0.5 mg PO DAILY Cetirizine HCl [Zyrtec] 10 mg PO DAILY Calcium Carbonate [Calcium] 600 mg PO BID Gabapentin [Neurontin] 100 mg PO BID PRN PRN Reason: nerve pain Aysha 500 mg PO HS Zinc Gluconate [Zinc] 50 mg PO DAILY Cholecalciferol [Vitamin D3 (125 Mcg = 5000 Iu)] 125 mcg PO DAILY Vitamin B Complex 1 cap PO DAILY Psyllium Husk [Fiber Capsule] 0.4 gm PO BID Memantine [Namenda] 10 mg PO BID Dicyclomine [Bentyl] 20 mg PO BID Apixaban [Eliquis] 5 mg PO BID Triamcinolone 0.1% Ointment [Kenalog 0.1% Ointment] 1 applic TOPICAL BID PRN PRN Reason: Rash Discharge Medication List Cranberry Fruit Extract [Cranberry] 500 mg PO HS 10/20/15 [History] Donepezil HCl [Aricept] 10 mg PO BID 03/25/18 [History] Multivit-Min/Iron/Folic/Lutein [Centrum Silver Women Tablet] 1 tab PO HS 03/16/19 [History] Apixaban [Eliquis] 5 mg PO BID 10/30/22 [History] Calcium Carbonate [Calcium] 600 mg PO BID 10/30/22 [History] Cetirizine HCl [Zyrtec] 10 mg PO DAILY 10/30/22 [History] Cholecalciferol [Vitamin D3 (125 Mcg = 5000 Iu)] 125 mcg PO DAILY 10/30/22 [History] Dicyclomine [Bentyl] 20 mg PO BID 10/30/22 [History] Escitalopram [Lexapro] 20 mg PO HS 10/30/22 [History] Memantine [Namenda] 10 mg PO BID 10/30/22 [History] Psyllium Husk [Fiber Capsule] 0.4 gm PO BID 10/30/22 [History] Vitamin B Complex 1 cap PO DAILY 10/30/22 [History] Zinc Gluconate [Zinc] 50 mg PO DAILY 10/30/22 [History] clonazePAM 0.5 mg PO DAILY 10/30/22 [History] Gabapentin [Neurontin] 100 mg PO BID PRN 11/06/22 [History] Aysah 500 mg PO HS 11/06/22 [History] Triamcinolone 0.1% Ointment [Kenalog 0.1% Ointment] 1 applic TOPICAL BID PRN 11/06/22 [History] Follow up Appointment(s)/Referral(s): Bud Gutiérrez DO [STAFF PHYSICIAN] - 1 Week Man Mccabe MD [STAFF PHYSICIAN] - 11/14/22 3:15 pm (Appointment is for Device clinic and follow up.) Patient Instructions/Handouts: Pacemaker (DC) Discharge Disposition: HOME SELF-CARE
== END 2022-11-07 12:49 | disposition home or self-care (01) ==
LOC: EC 18:36 → 6NMEDSUR 19:28
PROVIDERS: ADMIT Hospitalist; ATTEND Hospitalist
DX: L76.82 Other postprocedural complications of skin and subcutaneous tissue (principal); F03.90 Unspecified dementia, unspecified severity, without behavioral disturbance, psychotic disturbance, mood disturbance, and anxiety; M79.7 Fibromyalgia; E78.5 Hyperlipidemia, unspecified; I10 Essential (primary) hypertension; G47.30 Sleep apnea, unspecified; I48.0 Paroxysmal atrial fibrillation; I49.5 Sick sinus syndrome; F32.A Depression, unspecified; M19.90 Unspecified osteoarthritis, unspecified site; Z95.0 Presence of cardiac pacemaker; Z79.01 Long term (current) use of anticoagulants; Z79.899 Other long term (current) drug therapy; Z88.5 Allergy status to narcotic agent; Z88.6 Allergy status to analgesic agent; Z91.040 Latex allergy status; Z91.09 Other allergy status, other than to drugs and biological substances; Z82.49 Family history of ischemic heart disease and other diseases of the circulatory system
CPT/HCPCS: 96366 ×2; 96365; 99284; 36415; 80053; 83605; 85025; 87040; G0378 ×2; J0690 ×2

== ENCOUNTER → 2023-08-15 | Outpatient (CLI) | payer MEDICARE, OTHER ==
--- NOTE | 2023-08-16 12:57 | MM ---
Reason for Exam: Screening (asymptomatic). Last screening mammogram was performed 12 month(s) ago. Patient History: Menarche at age 10. First Full-Term at age 18. Left ovary removed at age 35. Right ovary removed at age 35. Hysterectomy at age 35. Postmenopausal. Other cancer. Cyst Aspiration. Maternal aunt had breast cancer, age 50. Risk Values: Marilu 5 year model risk: 1.4%. NCI Lifetime model risk: 3.4%. Prior Study Comparison: 05/20/2020 Bilateral Screening Mammogram, [facility]. 07/20/2021 Bilateral Screening Mammogram, [facility]. 07/23/2022 Bilateral MG 3D screening mammo w/cad, [facility]. Tissue Density: There are scattered areas of fibroglandular density. Findings: Analyzed By CAD. The pattern is symmetrical. No significant interval change is evident. No suspicious groups of microcalcifications, spiculated or lobular masses, architectural distortion or other secondary signs of malignancy are mammographically apparent. Overall Assessment: Benign, BI-RAD 2 Management: Screening Mammogram of both breasts in 1 year. A negative mammogram report should not preclude additional follow up of suspicious palpable abnormalities. Patient should continue monthly self breast exam. A clinical breast exam by your physician is recommended on an annual basis and results should be correlated with mammographic findings. Note on Marilu scores and lifetime risk: 1. A Marilu score greater than 3% is considered moderate risk. If this is the case, consider specialist referral to assess eligibility for a risk reducing agent. 2. If overall lifetime risk for the development of breast cancer is 20% or higher, the patient may qualify for future screening with alternating mammogram and breast MRI. Electronically signed and approved by: Conrad Thompson D.O. Radiologis
== END | disposition home or self-care (01) ==
LOC: RADMAMWWP 10:32
PROVIDERS: ATTEND Family Medicine
DX: Z12.31 Encounter for screening mammogram for malignant neoplasm of breast (principal); Z80.3 Family history of malignant neoplasm of breast; Z78.0 Asymptomatic menopausal state
CPT/HCPCS: 77063; 77067

== ENCOUNTER 2024-10-07 10:38 | Day surgery (SDC) | payer MEDICARE, OTHER ==
[2024-10-07] MEDS: IV FLUID CONTINUATION 1,000 ML IV ONE ×2 (10:56→11:31)
[2024-10-07 11:08] VITALS: TEMP 97.9
[2024-10-07] MEDS: LACTATED RINGERS 1,000 ML IV SCH (11:17)
[2024-10-07] MEDS ORDERED: PROPOFOL 10 MG/ML 20 ML VIAL IV ONE (11:33)
[2024-10-07] MEDS ORDERED: LIDOCAINE 1% INJ 10MG/ML (20 ML MDV) ONE (11:33)
--- NOTE | 2024-10-07 11:51 | P.PCN ---
Date of Procedure: 10/07/24 Procedure(s) Performed: BRIEF HISTORY: Patient is a 74-year-old pleasant white female scheduled for an elective colonoscopy as a part of screening for prior history of colon polyps. Her last colonoscopy was 3 years ago and was noted to have an adenoma. PROCEDURE PERFORMED: Colonoscopy. PREOPERATIVE DIAGNOSIS: Screening for history of colon polyps. IV sedation per Anesthesia. PROCEDURE: After informed consent was obtained, the patient, was brought into the endoscopy unit. IV sedation was administered by Anesthesia under continuous monitoring. Digital rectal examination was normal. Initially the Olympus CF-160 flexible video colonoscope was then inserted in the rectum, gradually advanced into the cecum without any difficulty. Careful examination was performed as the scope was gradually being withdrawn. Ileocecal valve and the appendiceal orifice were visualized and appeared normal. Prep was excellent. Mucosa of the cecum, ascending colon, transverse colon, descending colon, sigmoid colon, and rectum appeared normal. Sigmoid diverticulosis. Retroflexion was performed in the rectum and no lesions were seen. The patient tolerated the procedure well. IMPRESSION: Normal-appearing colon from rectum to cecum with no evidence of colorectal neoplasia Scattered sigmoid diverticulosis. RECOMMENDATIONS: Findings of this examination were discussed with the patient as well as her family. She was advised to continue with a high-fiber diet and start MiraLAX on a regular basis. Recommended repeat colonoscopy at age 80..
[2024-10-07 12:10] VITALS: BP 106/71; PULSE 69; RESP 16
== END 2024-10-07 12:30 | disposition home or self-care (01) ==
LOC: ORWHC2ENDO 10:38
PROVIDERS: ATTEND Internal Medicine Gastroenterology
DX: Z12.11 Encounter for screening for malignant neoplasm of colon (principal); K57.30 Diverticulosis of large intestine without perforation or abscess without bleeding; I10 Essential (primary) hypertension; E78.5 Hyperlipidemia, unspecified; I48.91 Unspecified atrial fibrillation; G47.33 Obstructive sleep apnea (adult) (pediatric); G40.909 Epilepsy, unspecified, not intractable, without status epilepticus; M19.90 Unspecified osteoarthritis, unspecified site; F03.90 Unspecified dementia, unspecified severity, without behavioral disturbance, psychotic disturbance, mood disturbance, and anxiety; K21.9 Gastro-esophageal reflux disease without esophagitis; Z79.01 Long term (current) use of anticoagulants; Z79.899 Other long term (current) drug therapy; Z86.0101 Personal history of adenomatous and serrated colon polyps; Z88.8 Allergy status to other drugs, medicaments and biological substances; Z88.2 Allergy status to sulfonamides; Z91.010 Allergy to peanuts; Z88.5 Allergy status to narcotic agent
CPT/HCPCS: 45378; J2003; J2704